=== PATIENT | male | born 1955 | race Caucasian/White ===

== ENCOUNTER 2019-06-26 07:29 | Day surgery (SDC) | payer OTHER ==
--- NOTE | 2019-06-25 13:47 | EKG ---
Test Date: 2019-06-25 Test Time: 11:16:33 [employer] Intelligence [employer]: ARTI MEASUREMENT RESULTS: Intervals: Rate: 57 W[place]: 162 QRSD: 86 QT: 418 QTc: 406 [place]: P: 63 W[place]: 162 QRS: 11 T: 48 INTERPRETIVE STATEMENTS: Sinus bradycardia Otherwise normal ECG No previous ECG available for comparison Electronically Signed On 06-25-19 13:47:07 CDT by Morris Benavidez
--- OUTSIDE RECORDS SUMMARY | 2019-06-26 07:33 | XMS REPORT | Clinical Summary ---
:1955 Author Organization [facility] Address [address] [place] [address] Care Team Providers Name Role Phone Don Hercules Primary Care Provider Allergies Active Allergy Reactions Severity Noted Date Comments Salicylates 07/17/2016 On coumadin and cant take together Nsaids (Non-Steroidal Other (See Comments) 07/17/2016 On coumadin Anti-Inflammatory Drug) Medications Medication Sig Dispensed Refills Start Date End Date Status clonazePAM Take 0.5 mg by 0 Active (KLONOPIN) 0.5 MG mouth as needed for tablet Anxiety . rosuvastatin Take 10 mg by mouth 0 Active (CRESTOR) 10 MG daily. tablet dutasteride-tamsu Take 1 tablet by 0 Active losin 0.5-0.4 mg mouth nightly . CM24 insulin aspart Inject 0 Active (NOVOLOG) 100 subcutaneously avg unit/mL InPn 0.75ml per hour. venlafaxine Take 150 mg by 0 Active (EFFEXOR-XR) 150 mouth daily. MG 24 hr capsule insulin pump by Miscellaneous 0 Active reservoir Misc route Novolog 28 units per day . RIVAROXABAN Take 20 mg by mouth 0 Active (XARELTO ORAL) daily . multivitamin per Take 1 tablet by 0 Active tablet mouth daily. metFORMIN Take 500 mg by 0 Active (GLUCOPHAGE) 500 mouth daily with MG tablet breakfast. lisinopril Take 1 tablet (5 mg 30 tablet 1 06/18/2018 09/02/20 Discontinued (PRINIVIL,ZESTRIL total) by mouth 18 ) 5 MG tablet daily. Active Problems Problem Noted Date Lymphadenopathy, axillary 10/29/2018 Dyspnea on exertion 06/18/2018 Trigger finger 03/19/2017 Dupuytren's disease of palm of right hand 03/19/2017 Lumbar spondylosis 08/02/2016 Osteoarthritis of spine with radiculopathy, lumbar region 08/02/2016 Encounters Date Type Specialty Care Team Description 02/24/2019 Hospital Encounter Computed Florentino Greenberg Lymphadenopathy Tomography MD Matteo [address] Room 02/24/2019 Travel 02/24/2019 Outside Orders Central Scheduling Florentino Greenberg Lymphadenopathy MD Matteo (Primary Dx) 01/21/2019 Hospital Encounter Teegavarapdelfina, Generalized enlarged Allison lymph nodes MD Andrea 01/20/2019 Outside Orders Central Scheduling Surjit, Generalized enlarged Allison lymph nodes (Primary MD Andrea Dx) 11/25/2018 Hospital Encounter Chris, Dipaben Lymphadenopathy, MD Thiago axillary 11/24/2018 Travel 10/29/2018 Orders Only Critical Care Chris, Dipaben Lymphadenopathy, Medicine MD Thiago axillary 10/20/2018 Hospital Encounter Computed Chris, Dipaben Tomography MD Thiago 10/20/2018 Orders Only Computed Tamia Vallejo Thoracic outlet syndrome; Tomography Lung nodule 10/08/2018 Outside Orders Central Scheduling Chris, Dipaben Thoracic outlet syndrome (Primary Dx); MD Thiago Lung nodule 09/24/2018 Hospital Encounter Radiology Denis Vega 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 Outside Orders Central Scheduling Denis Vega Thoracic outlet MD Stefano syndrome (Primary Dx) 09/02/2018 Anesthesia Event Nikky Mccall NP 09/02/2018 Surgery Jose Antonio Gomez RELEASE,TRIGGER FINGER Mihir III 09/02/2018 Hospital Encounter Jose Antonio Gomez Dupuytren's disease of palm ( Primary Dx); Mihir III Trigger finger of right hand, unspecified finger 09/01/2018 Anesthesia Event Pre-Admission Domi Mccall, DIRK 09/01/2018 Hospital Encounter Pre-Admission Jose Antonio Gomez Testing Mihir III 07/21/2018 Outside Orders Bo, Diego S, Breathing-related ACADEMIC SUPPORT COORDINATOR, MECHANIC SENIOR sleep disorder (Primary Dx) 07/04/2018 Hospital Encounter Radiology Sb Hester Dupuytren's disease of MD Don quakake 07/01/2018 Hospital Encounter Radiology Sb Hester Dyspnea, unspecified MD Don type after 06/25/2018 Social History Tobacco Use Types Packs/Day Years Used Date Former Smoker Quit: 11/04/1972 Smokeless Tobacco: Never Used Tobacco Cessation: Counseling Given: No Comments: quit 1972 Alcohol Use Drinks/Week oz/Week Comments No Sex Assigned at Date Recorded Not on file Job Start Date Occupation Industry Not on file Not on file Not on file Travel History Travel Start Travel End No recent travel history available. Last Filed Vital Signs Vital Sign Reading Time Taken Blood Pressure 129/70 01/21/2019 10:09 AM CDT Pulse 60 01/21/2019 10:09 AM CDT Temperature 36.8 C (98.2 F) 01/21/2019 9:16 AM CDT Respiratory Rate 18 01/21/2019 10:09 AM CDT Oxygen Saturation 98% 01/21/2019 10:09 AM CDT Inhaled Oxygen Concentration - - Weight 72.6 kg (160 lb) 01/21/2019 9:16 AM CDT Height 167.6 cm (5' 6") 01/21/2019 9:16 AM CDT Body Mass Index 25.82 01/21/2019 9:16 AM CDT Plan of Treatment Not on file Implants Implanted Type Area Bobtail Driver Device Shelf Model / Identifier Expiration Serial / Lot Date Device Clsr Angio-Seal Vip 6fr [id number] - [id number] Cardiovascular N/A: ST YOSSI [id number] 09/03/2018 [id number] / Implanted: Qty: 1 on 06/18/2018 by Tamia Montes MD Groin MED:CARDIAC / SURG [id number] Matrix Floseal Hemo W/O Ndl 10 [id number] - [id number] Cement/Filler/A N/A: LEON:BIOSCI 11/03/2017 [id number] / Implanted: Qty: 1 on 08/02/2016 by Darius Singh MD dhesive Spine / Lumbar [id number] 7.5 X 40 Mm Voyager Mas N/A: [employer] [id number] / Implanted: Qty: 4 on 08/02/2016 by Darius Singh MD Spine / Lumbar [id number] Sofamor Danek Orthoblend Small N/A: [employer] 04/10/2018 [id number] / Implanted: Qty: 1 on 08/02/2016 by Darius Singh MD Spine [id number] / Lumbar Sofamor Danek Paste N/A: [employer] 04/04/2018 [id number] / Implanted: Qty: 1 on 08/02/2016 by Darius Singh MD Spine [id number] / Lumbar Expandable Interbody Device N/A: [employer] 04/13/2024 [id number] / Implanted: Qty: 1 on 08/02/2016 by Darius Singh MD Spine / Lumbar [id number] Kaiden N/A: [employer] [id number] / Implanted: Qty: 1 on 08/02/2016 by Darius Singh MD Spine / Lumbar [id number] Kaiden N/A: [employer] [id number] / Implanted: Qty: 1 on 08/02/2016 by Darius Singh MD Spine / Lumbar [id number] Set Screws N/A: [employer] [id number] / Implanted: Qty: 4 on 08/02/2016 by Darius Singh MD Spine / Lumbar [id number] Procedures Procedure Name Priority Date/Time Associated Diagnosis Comments CT CHEST WITH IV Routine 02/24/2019 4:12 Lymphadenopathy Results for this CONTRAST PM CDT procedure are in the results section. POCT-CREATININE Routine 02/24/2019 3:41 Results for this PM CDT procedure are in the results section. TISSUE EXAM AP Routine 01/21/2019 12:40 Results for this PM CDT procedure are in the results section. FLOW CYTOMETRY Routine 01/21/2019 9:55 Results for this AM CDT procedure are in the results section. FLOW CYTOMETRY Routine 01/21/2019 9:55 Results for this REQUISITION AM CDT procedure are in the results section. US GUIDED BREAST Routine 01/21/2019 9:50 Generalized enlarged Results for this BIOPSY - LEFT AM CDT lymph nodes procedure are in the results section. US FINE NEEDLE Routine 11/25/2018 2:35 Lymphadenopathy, Results for this ASPIRATION LEFT PM BOOM SUPERVISOR axillary procedure are in BREAST the results section. FLOW CYTOMETRY Routine 11/25/2018 2:32 Results for this PM BOOM SUPERVISOR procedure are in the results section. CYTOLOGY AP Routine 11/25/2018 2:32 Results for this PM BOOM SUPERVISOR procedure are in the results section. FLOW CYTOMETRY Routine 11/25/2018 2:32 Results for this REQUISITION PM BOOM SUPERVISOR procedure are in the results section. CT CHEST WITHOUT IV Routine 10/20/2018 12:19 Thoracic outlet Results for this CONTRAST PM BOOM SUPERVISOR syndrome procedure are in Lung nodule the results section. IR CV ACCESS FLUORO Routine 09/24/2018 12:55 Thoracic outlet Results for this PM BOOM SUPERVISOR syndrome procedure are in the results section. POCT-GLUCOSE METER Routine 09/02/2018 11:06 Results for this AM CDT procedure are in the results section. TISSUE EXAM AP Routine 09/02/2018 9:55 Results for this AM CDT procedure are in the results section. POCT-GLUCOSE METER Routine 09/02/2018 8:27 Results for this AM CDT procedure are in the results section. INJECTION,MUSCLE 09/02/2018 8:25 Trigger finger, right TRIGGER POINTS AM CDT index finger Trigger finger, right middle finger Trigger finger, left middle finger Case Notes 60 MINS PER FAXLevi mayuri Special Needs (GENERAL WITH LMA, POSSIBLE URINARY CATHETER) FASCIECTOMY,HAND W/ Z-PLASTY 09/02/2018 8:25 AM CDT Trigger finger, right index AND GRAFT finger Trigger finger, right middle finger Trigger finger, left middle finger Case Notes 60 MINS PER FAXLevi mayuri Special Needs (GENERAL WITH LMA, POSSIBLE URINARY CATHETER) RELEASE,TRIGGER FINGER 09/02/2018 8:25 AM CDT Trigger finger, right index finger Trigger finger, right middle finger Trigger finger, left middle finger Case Notes 60 MINS PER FAXLevi mayuri Special Needs (GENERAL WITH LMA, POSSIBLE URINARY CATHETER) PLATELET COUNT Routine 09/01/2018 10:30 Results for this AM CDT procedure are in the results section. PT/APTT Routine 09/01/2018 10:30 Results for this AM CDT procedure are in the results section. GLUCOSE Routine 09/01/2018 10:30 Results for this AM CDT procedure are in the results section. BUN AND CREATININE Routine 09/01/2018 10:30 Results for this AM CDT procedure are in the results section. ELECTROLYTE PANEL Routine 09/01/2018 10:30 Results for this AM CDT procedure are in the results section. HEMOGLOBIN Routine 09/01/2018 10:30 Results for this AM CDT procedure are in the results section. HEPARIN ASSAY - Routine 09/01/2018 10:30 Results for this UNFRACTIONATED AM CDT procedure are in the results section. NM CARDIAC PET Routine 07/04/2018 12:57 Dyspnea, Results for this PERFUSION REST AND/OR PM CDT unspecified type procedure are in STRESS the results section. TREADMILL Routine 07/04/2018 11:28 Results for this TOLERANCE(NON-NUCLEAR AM CDT procedure are in TREADMILL) the results section. ECG 12-LEAD Routine 07/04/2018 11:17 Results for this AM CDT procedure are in the results section. ECG 12-LEAD Routine 07/04/2018 11:17 AM CDT Procedure Note - Interface, External Ris In - 07/04/2018 11:40 AM CDT Ventricular Rate 53 BPM Atrial Rate 53 BPM P-R Interval 182 ms QRS Duration 86 ms Q-T Interval 446 ms QTC Calculation(Bazett) 418 ms P [place] 73 degrees R [place] 58 degrees T [place] 66 degrees Sinus bradycardia Otherwise normal ECG after 06/25/[address] Chest with IV Contrast (02/24/2019 4:12 PM CDT) Specimen Narrative Performed At Addend[facility] RIS REPORT STATUS:A RADIATION DOSE: Total DLP: 516.87 mGy*cm Estimated effective dose: (DLP x 0.014 x size factor) mSv CTDIvol has been reviewed. It is below the limits set by the Radiation Protocol Committee (RPC). Dose modulation, iterative reconstruction, and/or weight based adjustment of the mA/kV was utilized to reduce the radiation dose to as low as reasonably achievable. Signed: Damaso Del Rosario MD Report Verified Date/Time:02/25/2019 11:23:17 Addendum Ends FINAL REPORT EXAM: CT Chest WITH contrast INDICATION: Lymphadenopathy. Prior lung nodules. COMPARISON: October 20, 2018 TECHNIQUE: Chest was scanned utilizing a multidetector helical scanner from the lung apex through the level of the adrenal glands without administration of IV contrast. Coronal and sagittal reformations were obtained. Routine protocol was performed. IV CONTRAST: 100 mL of Isovue-300 COMPLICATIONS: None RADIATION DOSE: Total DLP: 516.87 mGy*cm Estimated effective dose: (DLP x 0.014 x size factor) mSv CTDIvol has been reviewed. It is below the limits set by the Radiation Protocol Committee (RPC). FINDINGS: Lines and Tubes: None. Lower Neck: No acute findings. Heart and Great Vessels: The aorta and main pulmonary artery measure 32 and 25 mm. respectively.Trace amount of pericardial fluid statistically physiologic. Mild vascular calcifications. Lymph Nodes: No suspicious mediastinal or hilar adenopathy. Left axillary and subpectoral lymph nodes are enlarged, with largest subpectoral lymph node 21 x 12 mm and largest left axillary lymph node 19 x 12 mm. These are essentially unchanged. Lungs:There is mild biapical scarring with no pneumothorax or pleural effusion. The trachea and central bronchi are unremarkable. There is an 8 x 5 mm pleural nodule right middle lobe image 60 unchanged. Several pleural nodules are present in the right lower lobe, largest 7 mm unchanged. Smaller 3 mm pleural nodules are also unchanged. Tiny 3 mm nodule anterior aspect left upper lobe is unchanged. 4 mm nodule left lower lobe is unchanged. 4 mm subpleural nodule left lower lobe is unchanged and 3 mm nodule left lower lobe is unchanged. 6 mm slightly lobular nodule left lower lobe is unchanged. Upper abdomen:No acute findings. Bones and Soft Tissues: No acute findings. IMPRESSION: Bilateral pleural and parenchymal pulmonary nodules measuring 3 to 7 mm. These are essentially unchanged Left axillary and subpectoral adenopathy. This is essentially unchanged Signed: Damaso Del Rosario MD Report Verified Date/Time:02/25/2019 10:51:51 Procedure Note Interface, External Ris In - 02/25/2019 11:25 AM CDT Addendum Begins REPORT STATUS:A RADIATION DOSE: Total DLP: 516.87 mGy*cm Estimated effective dose: (DLP x 0.014 x size factor) mSv CTDIvol has been reviewed. It is below the limits set by the Radiation Protocol Committee (RPC). Dose modulation, iterative reconstruction, and/or weight based adjustment of the mA/kV was utilized to reduce the radiation dose to as low as reasonably achievable. Signed: Damaso Del Rosario MD Report Verified Date/Time: 02/25/2019 11:23:17 Addendum Ends FINAL REPORT EXAM: CT Chest WITH contrast INDICATION: Lymphadenopathy. Prior lung nodules. COMPARISON: October 20, 2018 TECHNIQUE: Chest was scanned utilizing a multidetector helical scanner from the lung apex through the level of the adrenal glands without administration of IV contrast. Coronal and sagittal reformations were obtained. Routine protocol was performed. IV CONTRAST: 100 mL of Isovue-300 COMPLICATIONS: None RADIATION DOSE: Total DLP: 516.87 mGy*cm Estimated effective dose: (DLP x 0.014 x size factor) mSv CTDIvol has been reviewed. It is below the limits set by the Radiation Protocol Committee (RPC). FINDINGS: Lines and Tubes: None. Lower Neck: No acute findings. Heart and Great Vessels: The aorta and main pulmonary artery measure 32 and 25 mm. respectively. Trace amount of pericardial fluid statistically physiologic. Mild vascular calcifications. Lymph Nodes: No suspicious mediastinal or hilar adenopathy. Left axillary and subpectoral lymph nodes are enlarged, with largest subpectoral lymph node 21 x 12 mm and largest left axillary lymph node 19 x 12 mm. These are essentially unchanged. Lungs: There is mild biapical scarring with no pneumothorax or pleural effusion. The trachea and central bronchi are unremarkable. There is an 8 x 5 mm pleural nodule right middle lobe image 60 unchanged. Several pleural nodules are present in the right lower lobe, largest 7 mm unchanged. Smaller 3 mm pleural nodules are also unchanged. Tiny 3 mm nodule anterior aspect left upper lobe is unchanged. 4 mm nodule left lower lobe is unchanged. 4 mm subpleural nodule left lower lobe is unchanged and 3 mm nodule left lower lobe is unchanged. 6 mm slightly lobular nodule left lower lobe is unchanged. Upper abdomen: No acute findings. Bones and Soft Tissues: No acute findings. IMPRESSION: Bilateral pleural and parenchymal pulmonary nodules measuring 3 to 7 mm. These are essentially unchanged Left axillary and subpectoral adenopathy. This is essentially unchanged Signed: Damaso Del Rosario MD Report Verified Date/Time: 02/25/2019 10:51:51 Performing Organization Address City/State/Zipcode Phone Number GE RIS POC-Creatinine (02/24/2019 3:41 PM CDT) POC-Creatinine 1.0Comment: TESTED AT [facility] 0.6 - 1.3 mg/dL [place] [id number] [facility] [address] POC-EGFR 75 mL/min/1.73M2 [facility] Specimen Blood Performing Organization Address City/State/Zipcode Phone Number [facility] [address] [place] [address] CENTER Tissue Exam (01/21/2019 12:40 PM CDT)Only the most recent of2 resultswithin the time period is included. Case Report Surgical Pathology Report Case: [id number] [facility] Authorizing Provider:Sb Baron,Collected: 01/21/2019 1240 [facility]: [facility] Pathologist: Dominick De La O MD Specimen:Axilla, Left DIAGNOSIS LYMPH NODE, AXILLA, LEFT, CORE BIOPSY: [facility] -REACTIVE FOLLICULAR HYPERPLASIA [facility] -NO EVIDENCE OF LYMPHOMA -SEE COMMENT Signing Pathologist Direct Phone Line: [phone] COMMENT Histologic evaluation of the [facility] left axillary lymph node core [facility] biopsy primarily demonstrates benign features. No mass lesions or granuloma identified. Immunohistochemical stain evaluation and corresponding flow cytometric analysis([id number]) did NOT demonstrate evidence of a neoplastic B or T lymphocyte process on this sample. Overall findings are consistent with reactive follicular hyperplasia. Clinical correlation is recommended. CPT Code(s) 75991 [facility] [address]70 x1; 84459 x8 [facility] CLINICAL HISTORY Left axillary lymph node biopsy [facility] SPECIMEN SOURCE Left axillary lymph node biopsy [facility] GROSS DESCRIPTION The specimen is received in a formalin-filled container and labeled with the patient's information and labeled "left axillary lymph node biopsy" and consists of four hemorrhagic fatty core biopsies ranging from 0.4 to 1 cm. [facility] Ink code: black. The specimen is entirely submitted A2. CG/pl MICROSCOPIC DESCRIPTION Histologic sections of a left axillary lymph node core biopsy demonstrates three core biopsy fragments of varying size comprised by lymphoid tissue. The lymphoid tissue demonstrates a follicular pattern [facility] with reactive germinal centers. The germinal centers demonstrates lymphocytes of varying size and tingible body macrophages. No evidence of granuloma or necrosis is seen.The interfollicular lymphoid ti [facility] ssue appears minimally expanded and primarily comprised by small lymphocytes and small number of large cells (immunoblasts) admixed. Histiocytes noted in some sinuses. Immunohistochemical stains, with adequate controls, are performed on block A1 for CD3, PAX-5, BCL-2. BCL-6, CD10, CD30, CD23, [place], Lambda . Germinal centers are positive for PAX-5, BCL-6 and CD10. CD23 highlights follicular dendritic cells meshworks of follicles. The interfollicular areas are T cell predominant and highlighted by CD3 and BCL2. CD30 demonstrates rare immunoblasts. [place] and Lambda demonstrate few polyclonal plasma cells present. Overall findings are consistent with reactive follicular hyperplasia. SPECIAL STUDIES The interpretation of this case included the use of immunohistochemistry or special stains. [facility] Immunohistochemistry technical testing was performed at [facility], Pathology Laboratory where it was developed and its performance characteristics were determined. It has not be en cleared or approved by the U.S. Food and Drug Administration. The FDA has determined that such clearance or approval is not necessary. The test is used for clinical purposes. It should not be regarde d as investigational or for research. This laboratory is certified under the Clinical Laboratory Improvement Amendments of 1988 (CLIA-88) as qualified to perform high complexity clinical laboratory testing. The immunohistochemistry test was developed and its performance characteristics determined by [facility], Pathology Laboratory. It has not been cleared or approved by the U.S. Food and Drug Administration. The FDA has determined that such clearance or approval is not necessary. The test is used for clinical purposes. It should not be regarded as investigational or for research. This laboratory is certified under the Clinical Laboratory Improvement Amendments of 1988 (CLIA-88) as qualified to perform high complexity clinical laboratory testing. The following immunohistochemical stains were evaluated: CD3, PAX-5, BCL-2. BCL-6, CD10, CD30, CD23, [place], Lambda Specimen Tissue - Axilla, Left Performing Organization Address City/State/Zipcode Phone Number [facility] [address] [place] [address] CENTER Flow Cytometry Requisition (01/21/2019 9:55 AM CDT)Only the most recent of2 resultswithin the time period is included. Flow Cytometry See Separate Report [facility] Case # [id number] [facility] Specimen Tissue - Axilla, Left Performing Organization Address City/State/Zipcode Phone Number [facility] [address] [place] [address] [phone] CENTER Flow Cytometry (01/21/2019 9:55 AM CDT)Only the most recent of2 resultswithin the time period is included. Case Report Flow Cytometry Report Case: [id number] [facility] Authorizing Provider:Sb Baron,Collected: 01/21/2019 0955 [facility]9 Pathologist: Dominick De La O MD Specimen:Other Flow Interpretation LYMPH NODE, AXILLARY, LEFT, US GUIDED BIOPSY, FLOW CYTOMETRY: [facility] -NO ABERRANT T LYMPHOCYTE POPULATION [facility] -NO MONOTYPIC B LYMPHOCYTE POPULATION -SEE COMMENT Flow Interpretation Comment Flow cytometric analysis of [facility] a left axillary lymph node [facility] biopsy does NOT demonstrate evidence of a neoplastic B or T lymphocyte process. However, flow cytometry for evaluation of Hodgkin lymphoma or other B cell lymphoma with only rare large neoplastic cells is limited. Recommend morphologic correlation with biopsy([id number]). CPT Code(s) 76713 [facility] CLINICAL HISTORY 63 y.o. male presents for an ultrasound guided core biopsy of a left axillary lymph node [facility] SPECIMEN SOURCE LYMPH NODE, AXILLARY, LEFT, [facility] US GUIDED BIOPSY [facility] CELLULAR BIOMARKER ANALYSIS CD8, surface-kappa, CD56, [facility] surface-lambda, CD5, CD19, [facility] CD10, CD3, CD20, CD4, CD45 IMMUNOPHENOTYPIC FINDINGS Specimen Viability: 88.7% Number of Events Acquired: [id number] [facility] The following populations are identified: Lymphocytes: Bright CD45+ lymphocytes comprise 98.0% of total cells. T cells show a CD4:CD8 ratio of 5.9 and normal expression of the harris T cell antigens CD3 and CD5. B cells are polytypic with a kappa:lambda ratio of 1.5. Myeloid/monocytic populations: As identified by CD45 and light scatter characteristics, granulocytes comprise 1.2% cells analyzed, and monocytes comprise 0.4% of total cells. The remaining events analyzed represent nonviable cells, non-hematolymphoid cells, and debris. DISCLAIMER These tests were developed and their performance characteristics determined by [facility] They have not been cleared or approved by the U.S. Food and Drug Administration. The FDA has determined that such clearance or approval is not necessary. It should not be regarded as investigational or [facility] for research. This laboratory is certified under the Clinical Laboratory Improvement Amendments of 1988 ("CLIA") as qualified to perform high-complexity clinical testing. Specimen Other Performing Organization Address City/State/Zipcode Phone Number [facility] [address] [place] [address] CENTER US guided breast biopsy left (01/21/2019 9:50 AM CDT) Specimen Narrative Performed At Addendum Begins [facility] AMENDMENT: 01/26/2019 Sb Baron M.D. Pathology results are now available and are copied below: LYMPH NODE, AXILLA, LEFT, CORE BIOPSY: -REACTIVE FOLLICULAR HYPERPLASIA -NO EVIDENCE OF LYMPHOMA -SEE COMMENT COMMENT Histologic evaluation of the left axillary lymph node core biopsy primarily demonstrates benign features.No mass lesions or granuloma identified.Immunohistochemical stain evaluation and corresponding flow cytometric analysis([id number]) did NOT demonstrate evidence of a neoplastic B or T lymphocyte process on this sample.Overall findings are consistent with reactive follicular hyperplasia. Clinical correlation is recommended. Addendum Ends #[id number] - MM, U/S, BIOPSY, BREAST, LEFT ULTRASOUND GUIDED BIOPSY LEFT BREAST: 01/21/2019 CLINICAL: Ultrasound guided core biopsy of a left axillary lymph node. PATIENT CONSENT: The procedure, risks and benefits, alternatives were discussed with the patient. Informed consent was obtained. A time-out was performed. An ultrasound guided biopsy using real-time ultrasound was performed for the lymph node located in the left axilla.The skin was prepped in the usual manner.A 14 gauge no throw biopsy needle was placed adjacent to the abnormality under ultrasound guidance.Once the needle was documented to be in the correct location, a total of five passes were made using a 14 gauge no throw biopsy needle. Hemostasis was achieved with manual compression.Skin closure strips and a sterile dressing were applied to the access site.The specimens were sent to the laboratory for pathological analysis. There were no immediate complications. IMPRESSION: ULTRASOUND GUIDED BIOPSY Ultrasound guided biopsy of the lymph node in the left axilla was successful with no apparent post procedure complications.Pathology is pending. Sb Baron M.D. ds/:01/21/2019 11:49:18 Interface Engineer: Opal Duff Director Informatics, [facility] [id number] Procedure Note Interface, External Ris In - 01/27/2019 11:13 AM CDT Addendum Begins AMENDMENT: 01/26/2019 Sb Baron M.D. Pathology results are now available and are copied below: LYMPH NODE, AXILLA, LEFT, CORE BIOPSY: -REACTIVE FOLLICULAR HYPERPLASIA -NO EVIDENCE OF LYMPHOMA -SEE COMMENT COMMENT Histologic evaluation of the left axillary lymph node core biopsy primarily demonstrates benign features. No mass lesions or granuloma identified. Immunohistochemical stain evaluation and corresponding flow cytometric analysis([id number]) did NOT demonstrate evidence of a neoplastic B or T lymphocyte process on this sample. Overall findings are consistent with reactive follicular hyperplasia. Clinical correlation is recommended. Addendum Ends #[id number] - MM, U/S, BIOPSY, BREAST, LEFT ULTRASOUND GUIDED BIOPSY LEFT BREAST: 01/21/2019 CLINICAL: Ultrasound guided core biopsy of a left axillary lymph node. PATIENT CONSENT: The procedure, risks and benefits, alternatives were discussed with the patient. Informed consent was obtained. A time-out was performed. An ultrasound guided biopsy using real-time ultrasound was performed for the lymph node located in the left axilla. The skin was prepped in the usual manner. A 14 gauge no throw biopsy needle was placed adjacent to the abnormality under ultrasound guidance. Once the needle was documented to be in the correct location, a total of five passes were made using a 14 gauge no throw biopsy needle. Hemostasis was achieved with manual compression. Skin closure strips and a sterile dressing were applied to the access site. The specimens were sent to the laboratory for pathological analysis. There were no immediate complications. IMPRESSION: ULTRASOUND GUIDED BIOPSY Ultrasound guided biopsy of the lymph node in the left axilla was successful with no apparent post procedure complications. Pathology is pending. Sb Baron M.D. ds/:01/21/2019 11:49:18 Interface Engineer: Opal Duff Director Informatics, [facility] [id number] Performing Organization Address City/State/Zipcode Phone Number [facility] US fine needle aspiration breast left (11/25/2018 2:35 PM BOOM SUPERVISOR) Specimen Narrative Performed At Addendum Begins [facility] AMENDMENT: 12/01/2018 Terry Abarca M.D. Cytology results are now available and demonstrate no evidence of malignant epithelial cellls. Addendum Ends #[id number] - MM, U/S, FNA, BREAST, LEFT ULTRASOUND GUIDED FINE NEEDLE ASPIRATION LEFT BREAST: 11/25/2018 PATIENT CONSENT: The procedure, risks, benefits and alternatives were discussed with the patient. Informed consent was obtained. A time-out was performed. A fine needle aspiration was performed for the lymph node located in the left axilla.The skin was prepped in the usual manner.Local anesthetic was administered to the access site.A 18 gauge needle was percutaneously placed into the abnormality under ultrasound guidance.Once the needle was documented to be in the correct location, six passes were made.The specimens were sent to the laboratory for cytological analysis. IMPRESSION: FINE NEEDLE ASPIRATION Fine needle aspiration of the lymph node in the left axilla was successful with no apparent post procedure complications. Terry Abarca M.D. pth/:11/26/2018 08:44:00 Interface Engineer: Opal Duff Director Informatics, [facility] [id number] Procedure Note Interface, External Ris In - 12/01/2018 3:12 PM BOOM SUPERVISOR Addendum Begins AMENDMENT: 12/01/2018 Terry Abarca M.D. Cytology results are now available and demonstrate no evidence of malignant epithelial cellls. Addendum Ends #[id number] - MM, U/S, FNA, BREAST, LEFT ULTRASOUND GUIDED FINE NEEDLE ASPIRATION LEFT BREAST: 11/25/2018 PATIENT CONSENT: The procedure, risks, benefits and alternatives were discussed with the patient. Informed consent was obtained. A time-out was performed. A fine needle aspiration was performed for the lymph node located in the left axilla. The skin was prepped in the usual manner. Local anesthetic was administered to the access site. A 18 gauge needle was percutaneously placed into the abnormality under ultrasound guidance. Once the needle was documented to be in the correct location, six passes were made. The specimens were sent to the laboratory for cytological analysis. IMPRESSION: FINE NEEDLE ASPIRATION Fine needle aspiration of the lymph node in the left axilla was successful with no apparent post procedure complications. Terry Abarca M.D. pth/:11/26/2018 08:44:00 Interface Engineer: Opal Duff Director Informatics, [facility] [id number] Performing Organization Address City/State/Zipcode Phone Number [facility] Cytology (11/25/2018 2:32 PM BOOM SUPERVISOR) Case Report Medical Cytology Report Case: [id number] [facility] Authorizing Provider:Terry Abarca MDCollected: 11/25/2018 1432 [facility] CenterReceived: 11/25/2018 1557 Pathologist: Jimbo Dow MD Specimen:Axilla, Left DIAGNOSIS LEFT AXILLARY LYMPH NODE FNA BY CLINICIAN (CYTOSPINS): [facility] - NEGATIVE FOR EPITHELIAL MALIGNANCY [facility] - FAVOR REACTIVE LYMPHOID PROCESS (SEE COMMENT) Signing Pathologist Direct Phone Line: [phone] COMMENT INTRADEPARTMENTAL CONSULTATION: - Dominick De La O MD has seen the case and agrees with the diagnosis. [facility] Please also see flow cytometry report [id number]. If there is a strong suspicion of a hematologic malignancy, appropriate evaluation is recommended. CPT Code(s) 11144 [facility] CLINICAL DATA Evaluation of left axillary adenopathy [facility] SPECIMEN SOURCE LEFT AXILLARY LYMPH NODE FNA [facility] GROSS DESCRIPTION 5 mls in cytorich red; 4 cytospins [facility] Collected: [id number] [facility] Received: [id number] Gross assessment was [facility] performed at [address], Department [facility], [address] [place] [id number], Technical component was [facility] performed at [address], Department of [facility] Pathology, [address] [place] [address], Professional component [facility] was performed at [address], Department of [facility] Pathology, [address] [place] [id number], Specimen Fine Needle Aspirate - Axilla, Left Narrative Performed At Performing Organization Address City/State/Zipcode Phone Number [phone] [place] Chest without IV Contrast (10/20/2018 12:19 PM BOOM SUPERVISOR) Specimen Narrative Performed At Addendum Begins GE RIS REPORT STATUS:A Addendum: Comparison study in the basilar system dated 07/22/2018. Nodules unchanged; however, given only three month interval, continued follow-up recommended. CT in nine months, July 2019, recommended. Signed: Jelena Dixon MD Report Verified Date/Time:10/22/2018 08:46:44 Reading Location: [facility] Reading Room 1 - B0.627 Addendum Ends FINAL REPORT EXAM: CT Chest WITHOUT contrast INDICATION: Thoracic outlet syndrome, lung nodule COMPARISON: None. TECHNIQUE:The Chest was scanned utilizing a multidetector helical scanner without the use of IV contrast. Coronal and sagittal reformations were obtained. Reformatted axial MIP images were obtained and reviewed. IV CONTRAST: None COMPLICATIONS: None RADIATION DOSE: Total DLP: 160 mGy*cm Estimated effective dose: (DLP x 0.015 x size factor) mSv CTDIvol has been reviewed. It is below the limits set by the Radiation Protocol Committee (RPC). Appropriate CT dose reduction techniques were utilized. FINDINGS: Lines and Tubes: None. Lower Neck: No acute findings. Heart and Great Vessels: The aorta and main pulmonary artery measure 32 and 25 mm. respectively.Trace amount of pericardial fluid statistically physiologic. Mild vascular calcifications. Lymph Nodes: Within limitations of nonenhanced exam, no suspicious mediastinal or hilar adenopathy. Left axillary and subpectoral lymph nodes are enlarged, with largest subpectoral lymph node 21 x 12 mm and largest left axillary lymph node 19 x 12 mm. Lungs:There is mild biapical scarring with no pneumothorax or pleural effusion. The trachea and central bronchi are unremarkable. There is an 8 x 5 mm pleural nodule right image 59. Several pleural nodules are present in the right lower lobe, largest 7 mm image 95. Smaller 3 mm image 88 and 95. Tiny 3 mm nodule anterior aspect left upper lobe image 42. 4 mm nodule left lower lobe image 66. 4 mm subpleural nodule left lower lobe image 81 and 3 mm nodule left lower lobe image 82. 6 mm slightly lobular nodule left lower lobe image 83. Upper abdomen:Limited. No acute findings. Bones and Soft Tissues: No acute findings. IMPRESSION: 1.Bilateral pleural and parenchymal pulmonary nodules measuring 3 to 7 mm. No comparisons are available. Six month CT follow-up. 2.Left axillary and subpectoral adenopathy. Clinical/laboratory correlation recommended. Signed: Jelena Dixon MD Report Verified Date/Time:10/20/2018 15:52:58 Reading Location: [facility] Reading Room [address] [place] [address] Procedure Note Interface, External Ris In - 10/22/2018 8:48 AM BOOM SUPERVISOR Addendum Begins REPORT STATUS:A Addendum: Comparison study in the basilar system dated 07/22/2018. Nodules unchanged; however, given only three month interval, continued follow-up recommended. CT in nine months, July 2019, recommended. Signed: Jelena Dixon MD Report Verified Date/Time: 10/22/2018 08:46:44 Reading Location: [facility] Reading Room [address] [place] [address] Addendum Ends FINAL REPORT EXAM: CT Chest WITHOUT contrast INDICATION: Thoracic outlet syndrome, lung nodule COMPARISON: None. TECHNIQUE: The Chest was scanned utilizing a multidetector helical scanner without the use of IV contrast. Coronal and sagittal reformations were obtained. Reformatted axial MIP images were obtained and reviewed. IV CONTRAST: None COMPLICATIONS: None RADIATION DOSE: Total DLP: 160 mGy*cm Estimated effective dose: (DLP x 0.015 x size factor) mSv CTDIvol has been reviewed. It is below the limits set by the Radiation Protocol Committee (RPC). Appropriate CT dose reduction techniques were utilized. FINDINGS: Lines and Tubes: None. Lower Neck: No acute findings. Heart and Great Vessels: The aorta and main pulmonary artery measure 32 and 25 mm. respectively. Trace amount of pericardial fluid statistically physiologic. Mild vascular calcifications. Lymph Nodes: Within limitations of nonenhanced exam, no suspicious mediastinal or hilar adenopathy. Left axillary and subpectoral lymph nodes are enlarged, with largest subpectoral lymph node 21 x 12 mm and largest left axillary lymph node 19 x 12 mm. Lungs: There is mild biapical scarring with no pneumothorax or pleural effusion. The trachea and central bronchi are unremarkable. There is an 8 x 5 mm pleural nodule right image 59. Several pleural nodules are present in the right lower lobe, largest 7 mm image 95. Smaller 3 mm image 88 and 95. Tiny 3 mm nodule anterior aspect left upper lobe image 42. 4 mm nodule left lower lobe image 66. 4 mm subpleural nodule left lower lobe image 81 and 3 mm nodule left lower lobe image 82. 6 mm slightly lobular nodule left lower lobe image 83. Upper abdomen: Limited. No acute findings. Bones and Soft Tissues: No acute findings. IMPRESSION: 1.Bilateral pleural and parenchymal pulmonary nodules measuring 3 to 7 mm. No comparisons are available. Six month CT follow-up. 2.Left axillary and subpectoral adenopathy. Clinical/laboratory correlation recommended. Signed: Jelena Dixon MD Report Verified Date/Time: 10/20/2018 15:52:58 Reading Location: [facility] Reading Room [address] [place] [address] Performing Organization Address City/State/Zipcode Phone Number [facility] IR CV Access Fluoro (09/24/2018 12:55 PM BOOM SUPERVISOR) Specimen Narrative Performed At FINAL REPORT [facility] Ultrasound-guided left anterior scalene muscle block. History:Left neurogenic thoracic syndrome Modality: Ultrasound Sedation: None Departmental Shipping Clerk:Taqueria Ray MD. Account Retention Representative:None. Approach: Midbody of the left anterior scalene muscle. Estimated blood loss:< 5 cc. Specimen: None. Technique: Informed written consent was obtained. Discussion of risks, benefits, and alternatives were made with the patient. The patient expressed understanding and agreed to proceed.A universal timeout was performed prior to starting the procedure.All elements maximal sterile barrier technique was utilized for this procedure, including utilization of sterile scrub solution for skin prep, a large sterile sheet to cover the areas of the patient that were not prepped, and hand hygiene, mask, head covering, and sterile gown for performing radiologist and scrub technologist. Under direct ultrasound guidance a 25-gauge needle was advanced into the mid body of the left anterior scalene muscle. An ultrasound image documenting the needle tip location within the muscle body was saved into PACS. Next 4 mL of lidocaine 1% and 1 mL of Kenalog-40 was injected into the muscle. The needle was then removed and the skin puncture site was dressed with a sterile gauze and occlusive Tegaderm dressing. The patient tolerated the procedure well without evidence of immediate competition. Impression: Technically successful and uncomplicated ultrasound guided intramuscular left anterior scalene block. Signed: Taqueria Ray MD Report Verified Date/Time:09/29/2018 14:38:16 Reading Location: [facility] [id number] Angio Body Reading Room Procedure Note Interface, External Ris In - 09/29/2018 2:40 PM BOOM SUPERVISOR FINAL REPORT Ultrasound-guided left anterior scalene muscle block. History: Left neurogenic thoracic syndrome Modality: Ultrasound Sedation: None Departmental Shipping Clerk: Taqueria Ray MD. Account Retention Representative: None. Approach: Midbody of the left anterior scalene muscle. Estimated blood loss: < 5 cc. Specimen: None. Technique: Informed written consent was obtained. Discussion of risks, benefits, and alternatives were made with the patient. The patient expressed understanding and agreed to proceed. A universal timeout was performed prior to starting the procedure. All elements maximal sterile barrier technique was utilized for this procedure, including utilization of sterile scrub solution for skin prep, a large sterile sheet to cover the areas of the patient that were not prepped, and hand hygiene, mask, head covering, and sterile gown for performing radiologist and scrub technologist. Under direct ultrasound guidance a 25-gauge needle was advanced into the mid body of the left anterior scalene muscle. An ultrasound image documenting the needle tip location within the muscle body was saved into PACS. Next 4 mL of lidocaine 1% and 1 mL of Kenalog-40 was injected into the muscle. The needle was then removed and the skin puncture site was dressed with a sterile gauze and occlusive Tegaderm dressing. The patient tolerated the procedure well without evidence of immediate competition. Impression: Technically successful and uncomplicated ultrasound guided intramuscular left anterior scalene block. Signed: Taqueria Ray MD Report Verified Date/Time: 09/29/2018 14:38:16 Reading Location: [place] [address] Angio Body Reading Room Performing Organization Address City/[facility]/Zipcode Phone Number [facility] POC-Glucose meter (09/02/2018 11:06 AM CDT)Only the most recent of2 resultswithin the time period is included. POC-Glucose Meter 176 (H)Comment: TESTED AT 70 - 110 mg/dL [place] [id number] [facility] [id number] Specimen Blood Performing Organization Address [facility]/Zipcode Phone Number [address] [address] [phone] CENTER PT/aPTT (09/01/2018 10:30 AM CDT) Protime 13.3 11.7 - 14.7 seconds [facility] INR 1.0 <=5.9 [facility] PTT 29.5 22.5 - 36.0 seconds [facility] Specimen Blood Narrative Performed At RECOMMENDED COUMADIN/WARFARIN INR THERAPY [facility] RANGES STANDARD DOSE: 2.0 - 3.0 Includes: PROPHYLAXIS for venous thrombosis, systemic embolization; TREATMENT for venous thrombosis and/or pulmonary embolus. HIGH RISK: Target INR is 2.5-3.5 for patients with mechanical heart valves. Performing Organization Address City/[facility] Phone Number [address] [address] CENTER Heparin Assay - Unfractionated (09/01/2018 10:30 AM CDT) Anti 10A-Unfractionated <0.10 (L) 0.30 - 0.70 u/ml [facility] Heparin [facility] Specimen Blood Narrative Performed At Recommendations for Monitoring Unfractionated [facility] Heparin Therapeutic Range: 0.3-0.7 u/mL with continuous IV infusion Performing Organization Address [facility] Phone Number [address] [address] CENTER BUN and Creatinine (09/01/2018 10:30 AM CDT) BUN 30 (H) 7 - 21 mg/dL [facility] Creatinine 1.00 0.57 - 1.25 mg/dL [facility] EGFR 75Comment: ESTIMATED GFR IS mL/min/1.73 sq m [facility] NOT ACCURATE CREATININE [facility] CLEARANCE IN PREDICTING GLOMERULAR FILTRATION RATE. ESTIMATED GFR IS NOT APPLICABLE FOR DIALYSIS PATIENTS. Specimen Blood Performing Organization Address [facility] Phone Number [address] [address] CENTER Platelet count (09/01/2018 10:30 AM CDT) Platelets 199 150 - 450 K/CU MM [facility] Specimen Blood Performing Organization Address City/[facility]/Zipcode Phone Number [address] [address] [phone] [place] Hemoglobin (09/01/2018 10:30 AM CDT) Hemoglobin 14.4 13.7 - 17.5 GM/DL [facility] Specimen Blood Performing Organization Address City/[facility]/Zipcode Phone Number [address] [address] [place] Glucose (09/01/2018 10:30 AM CDT) Glucose 120 (H) 70 - 105 mg/dL [facility] Specimen Blood Performing Organization Address [facility] Phone Number [address] [address] [place] Electrolytes (09/01/2018 10:30 AM CDT) Sodium 138 136 - 145 meq/L [facility] Potassium 4.0 3.5 - 5.1 meq/L [facility] Chloride 102 98 - 107 meq/L [facility] CO2 27 22 - 29 meq/L [facility] Specimen Blood Performing Organization Address City/[facility] Phone Number [address] [address] CENTER NM myocardial perfusion PET (rest and stress) (07/04/2018 12:57 PM CDT) Specimen Narrative Performed At FINAL REPORT [facility] PROCEDURE: Rest/Stress MYOCARDIAL PERFUSION PET with regadenoson\\XA9\\ CPT CODE: 26529 INDICATION: Dyspnea HISTORY: Cardiac risk factors: Stroke. Other cardiovascular history: No reported CAD. Recent cardiac symptoms: Dyspnea, chest pain. Current cardiovascular-related medications: Crestor, lisinopril. PROTOCOL: Limited low-dose CT imaging was performed for attenuation correction. 40.0 mCi of Rb-82 chloride was injected iv at rest, and gated PET (positron emission tomography) images were obtained. Subsequently, 40.1 mCi of Rb-82 chloride was injected iv at expected peak pharmacologic effect, and gated PET images were obtained. PRELIMINARY STRESS TEST DATA FROM NONINVASIVE CARDIOLOGY: Pharmacologic stress was by 10-second iv infusion of 0.4 mg of regadenoson. Radiotracer was injected 30 seconds after start of stress. Heart rate was 52 beats/min at rest and 68 beats/min (45% of MPHR) at tracer injection. BP was 96/52 mmHg at rest and 96/59 mmHg at tracer injection. Stress was stopped for predetermined endpoint. The patient experienced dyspnea; treatment was not required. Preliminary ECG evaluation revealed sinus bradycardia at rest and no ischemic changes with stress. (Final ECG interpretation and other stress and monitoring data are reported separately by Cardiology.) IMAGING FINDINGS: Study quality is good. Images obtained after rest and stress injections show normal LV activity. LV and RV volumes appear normal. Gated images obtained at rest and with stress show normal LV wall motion and thickening. LVEF at rest is 67%. LVEF at stress is greater than 70%. IMPRESSION: 1. Normal study.2. Appropriate pharmacologic stress.3. Normal myocardial perfusion.4. Normal resting LV function. No deterioration of function is noted with pharmacologic stress.5. Normal extracardiac tracer distribution.6. No previous [facility] study for comparison. NONINVASIVE RISK STRATIFICATION: The above findings are considered low risk (<1% annual mortality rate) based on the following criterion: - Normal or small myocardial perfusion defect at rest or with stress (JACC. 2012;59(9):857-81.) Signed: Maury Raymond MD Report Verified Date/Time:07/04/2018 15:00:54 Reading Location: [address] Reading Room Procedure Note Interface, External Ris In - 07/04/2018 3:03 PM CDT FINAL REPORT PROCEDURE: Rest/Stress MYOCARDIAL PERFUSION PET with regadenoson\\XA9\\ CPT CODE: 39320 INDICATION: Dyspnea HISTORY: Cardiac risk factors: Stroke. Other cardiovascular history: No reported CAD. Recent cardiac symptoms: Dyspnea, chest pain. Current cardiovascular-related medications: Crestor, lisinopril. PROTOCOL: Limited low-dose CT imaging was performed for attenuation correction. 40.0 mCi of Rb-82 chloride was injected iv at rest, and gated PET (positron emission tomography) images were obtained. Subsequently, 40.1 mCi of Rb-82 chloride was injected iv at expected peak pharmacologic effect, and gated PET images were obtained. PRELIMINARY STRESS TEST DATA FROM NONINVASIVE CARDIOLOGY: Pharmacologic stress was by 10-second iv infusion of 0.4 mg of regadenoson. Radiotracer was injected 30 seconds after start of stress. Heart rate was 52 beats/min at rest and 68 beats/min (45% of MPHR) at tracer injection. BP was 96/52 mmHg at rest and 96/59 mmHg at tracer injection. Stress was stopped for predetermined endpoint. The patient experienced dyspnea; treatment was not required. Preliminary ECG evaluation revealed sinus bradycardia at rest and no ischemic changes with stress. (Final ECG interpretation and other stress and monitoring data are reported separately by Cardiology.) IMAGING FINDINGS: Study quality is good. Images obtained after rest and stress injections show normal LV activity. LV and RV volumes appear normal. Gated images obtained at rest and with stress show normal LV wall motion and thickening. LVEF at rest is 67%. LVEF at stress is greater than 70%. IMPRESSION: 1. Normal study. 2. Appropriate pharmacologic stress. 3. Normal myocardial perfusion. 4. Normal resting LV function. No deterioration of function is noted with pharmacologic stress. 5. Normal extracardiac tracer distribution. 6. No previous [facility] study for comparison. NONINVASIVE RISK STRATIFICATION: The above findings are considered low risk (<1% annual mortality rate) based on the following criterion: - Normal or small myocardial perfusion defect at rest or with stress (JACC. 2012;59(9):857-81.) Signed: Maury Raymond MD Report Verified Date/Time: 07/04/2018 15:00:54 Reading Location: [id number] [facility] Reading Room Performing Organization Address City/State/Zipcode Phone Number picoChip Treadmill tolerance(Non-Nuclear Treadmill) (07/04/2018 11:28 AM CDT) Specimen Narrative Performed At Protocol Name [facility] MUSE Time In Exercise Phase 00:01:00 Max. Systolic BP 96 mmHg Max Diastolic BP 59 mmHg Max Heart Rate 68 BPM Max Predicted Heart Rate 156 BPM Reason For Termination Predetermined end point Reason for Test Dyspnea Target HR Formula (220 - Age)*100% Arrhythmias none Resting ECG sinus bradycardia ST Changes No Significant Changes Overall Impression Indeterminate due to pharmacological stress Chest Pain none HR Response To Exercise BP Response To Exercise CRESTOR EFFEXOR LISINOPRIL Confirmed by fellow Yudelka Zuniga ([id number]) on 07/04/2018 1:15:29 PM Confirmed by MD CHRISTIANSON JORGE ([id number]) on 07/17/2018 2:29:14 PM Procedure Note Interface, External Ris In - 07/17/2018 2:29 PM CDT Protocol Name [place] Time In Exercise Phase 00:01:00 Max. Systolic BP 96 mmHg Max Diastolic BP 59 mmHg Max Heart Rate 68 BPM Max Predicted Heart Rate 156 BPM Reason For Termination Predetermined end point Reason for Test Dyspnea Target HR Formula (220 - Age)*100% Arrhythmias none Resting ECG sinus bradycardia ST Changes No Significant Changes Overall Impression Indeterminate due to pharmacological stress Chest Pain none HR Response To Exercise BP Response To Exercise CRESTOR EFFEXOR LISINOPRIL Confirmed by fellow Yudelka Zuniga ([id number]) on 07/04/2018 1:15:29 PM Confirmed by MD CHRISTIANSON JORGE ([id number]) on 07/17/2018 2:29:14 PM Performing Organization Address City/[facility] [place] Phone Number GE MUSE ECG 12 lead (07/04/2018 11:17 AM CDT) Specimen Narrative Performed At Ventricular Rate 53 BPM GE MUSE Atrial Rate 53 BPM P-R Interval 182 ms QRS Duration 86 ms Q-T Interval 446 ms QTC Calculation(Bazett) 418 ms P [place] 73 degrees R [place] 58 degrees T [place] 66 degrees Sinus bradycardia Otherwise normal ECG 18 JUN 2018 No significant changes Confirmed by MD BOOTH YOCHAI ([id number]) on 07/04/2018 1:46:12 PM Procedure Note Interface, External Ris In - 07/04/2018 1:46 PM CDT Ventricular Rate 53 BPM Atrial Rate 53 BPM P-R Interval 182 ms QRS Duration 86 ms Q-T Interval 446 ms QTC Calculation(Bazett) 418 ms P [place] 73 degrees R [place] 58 degrees T [place] 66 degrees Sinus bradycardia Otherwise normal ECG 18 JUN 2018 No significant changes Confirmed by MD BOOTH YOCHAI ([id number]) on 07/04/2018 1:46:12 PM Performing Organization Address City/[facility] [place] Phone Number GE MUSE after 06/25/2018 Insurance Payer Benefit Plan / Group Subscriber ID Type Phone Address MEDICARE MEDICARE A B xxxxxxxxxxx Medicare MCR SUPPLEMENT/[employer]IV[employer] xxxxxxx Advance Directives Patient has advance care planning documents, and code status on file. For more information, please contact:[id number] [place], [place] [phone] Code Status Date Activated Date Inactivated Comments Full Code 09/02/2018 8:07 AM 09/24/2018 10:22 AM This code status was determined by: Patient Full Code 06/18/2018 6:43 PM 06/18/2018 11:35 PM This code status was determined by: Patient Full Code 08/08/2016 4:53 PM 08/14/2016 2:40 PM This code status was determined by: Patient Full Code 08/08/2016 4:51 PM 08/08/2016 4:53 PM This code status was determined by: Patient Full Code 08/02/2016 9:20 AM 08/08/2016 4:51 PM This code status was determined by: Patient
--- OUTSIDE RECORDS SUMMARY | 2019-06-26 07:33 | XMS REPORT ---
:1955 [facility] [address] [place] [address] [address] [place] [address] Care Team Providers Name Role Phone KEN VILLARREAL Unavailable Unavailable TEETRACEEVARASHLEYU, JOSE ESTES Unavailable Unavailable AMY, AVI JIMÉNEZ Unavailable Unavailable TOBIN TURNER Unavailable Unavailable NORMAN BAI Unavailable Unavailable Problems This patient has no known problems. Allergies, Adverse Reactions, Alerts This patient has no known allergies or adverse reactions. Medications This patient has no known medications. Results Test Description Test Time Test Comments Text Results Atomic Results Result Comments CT, CHEST, WITH IV CONTRAST 2019-02-25 11:23:00 Addendum BeginsREPORT STATUS:A RADIATION DOSE: Total DLP: 516.87 mGy*cm Estimated effective dose: (DLP x 0.014 x size factor) mSv CTDIvol has been reviewed. It is below the limits set by the Radiation Protocol Committee (RPC). Dose modulation, iterative reconstruction, and/or weight based adjustment of the mA/kV was utilized to reduce the radiation dose to as low as reasonably achievable. Signed: Damaso Del Rosario MDReport Verified Date/Time: 02/25/2019 11:23:17 Addendum EndsFINAL REPORT EXAM: CT Chest WITH contrast INDICATION: Lymphadenopathy. Prior lung nodules. COMPARISON: October 20, 2018 TECHNIQUE:Chest was scanned utilizing a multidetector helical scanner [...] is essentially unchanged Signed: Damaso Del Rosario MDReport Verified Date/Time: 02/25/2019 10:51:51 -CREATININE 2019-02-24 15:46:00 Test Item Value Reference Range Comments POC-CREATININE (BEAKER) (test 1.0 mg/dL 0.6-1.3 TESTED AT [facility] 7200 zvsp=1645) [facility] [address] POC-EGFR (BEAKER) (test 75 mL/min/1.73M2 yyzx=9264) MM, U/S, BIOPSY, BREAST, [id number] 17:45:00Reason for Exam:-> R59.1Addendum BeginsN#: [id number]: 01/26/2019 Sb Baron M.D. Pathology results are now available and are copied below: LYMPH NODE, AXILLA, LEFT, CORE BIOPSY:-REACTIVE FOLLICULAR HYPERPLASIA-NO EVIDENCE OF LYMPHOMA-SEE COMMENT COMMENTHistologic evaluation of the left axillary lymph nodecore biopsy primarily demonstrates benign features. No mass lesions or granuloma identified. Immunohistochemical stain evaluation and corresponding flow cytometric analysis([id number]) did NOT demonstrate evidence of a neoplastic B or T lymphocyte process on this sample. Overall findings are consistent with reactive follicular hyperplasia. Clinical correlation is recommended. Addendum [facility]#: [id number] - MM, U/S, BIOPSY, BREAST, LEFTULTRASOUND GUIDED BIOPSY LEFT BREAST: 01/21/2019CLINICAL:Ultrasound guided core biopsy of a left axillary lymph node. PATIENT CONSENT: The procedure, risksand benefits, alternatives were discussed with the patient. Informed consent was obtained. A time-out was performed. An ultrasound guided biopsy using real-time ultrasound was performed for the lymphnode located in the left axilla. The skin [...] were no immediate complications. IMPRESSION: ULTRASOUND GUIDED BIOPSYUltrasound guided biopsy of the lymph node in the left axilla was successful with no apparent post procedure complications. Pathology is pending. Sb Baron M.D. ds/:01/21/2019 11:49:18 [employer]: Opal Duff Code Number Stamper, [facility] [id number] Electronically signed by: SB BARON on 2018 05:45 PMTISSUE [id number] 14:23:00Surgical Pathology Report Case: [id number] Authorizing Provider: Sb Baron, Collected: 01/21/2019 Iraj MORALES OrderingLocation: [facility] Received: 124Aide Pathologist: Dominick De La O MD Specimen: Axilla, Left LYMPH NODE, AXILLA, LEFT, CORE BIOPSY:-REACTIVE FOLLICULAR HYPERPLASIA-NO EVIDENCE OF LYMPHOMA-SEE COMMENT Signing Pathologist Direct Phone Line: Histologic evaluation of the left axillary lymph node core biopsy primarily demonstrates benign features. No mass lesions or granuloma identified. Immunohistochemical stain evaluation and corresponding flow cytometric analysis([id number]) did NOT demonstrate evidence of a neoplastic B or T lymphocyte process on this sample. Overall findings are consistent with reactive follicular hyperplasia. Clinical correlation is recommended. [id number] x1; [phone] x8Left axillary lymph node biopsyLeft axillary lymph node biopsyThe specimen is received in a formalin- filled container and labeled with the patient's information and labeled "left axillary lymph node biopsy" and consists of four hemorrhagic fatty core biopsies ranging from 0.4 to 1 cm. Ink code: black. The specimen is entirely submitted A2.CG/pl Histologic sections of a left axillary lymph node core biopsy demonstrates three core biopsy fragments of varying size comprised by lymphoid tissue. The lymphoid tissue demonstrates a follicular pattern with reactive germinal centers. The germinal centers demonstrates lymphocytes of varying sizeand tingible body macrophages. No evidence of granuloma or necrosis is seen.The interfollicular lymphoid tissue appears minimally expanded and primarily comprised by smalllymphocytes and small number of large cells ( immunoblasts) admixed. Histiocytes noted in some sinuses.Immunohistochemical stains, with adequate controls, are performed on block A1 for CD3, PAX-5, BCL- 2. BCL-6, CD10, CD30, CD23, [place], Lambda . Germinal centers are positive for PAX-5, BCL-6 and CD10. XQ97cuudibfryq follicular dendritic cells meshworks of follicles. The interfollicular areas are T cell predominant and highlighted by CD3 and BCL2. CD30 demonstrates rare immunoblasts. [place] and Lambda demonstrate few polyclonal plasma cells present. Overall findings are consistent with reactive follicular hyperplasia. The interpretation of this case included the use of immunohistochemistry or special stains. Immunohistochemistry technical testing was performed at [facility], Pathology Laboratory where it was developed and its performance characteristics were determined. It has not been cleared or approved by the U.S. Food and Drug Administration. The FDA has determined that such clearance or approval isnot necessary. The test is used for clinical purposes. It should not be regarded as investigational or for research. This laboratory is certified under the Clinical Laboratory Improvement Amendments iq1667 (CLIA-88) as qualified to perform high complexity clinical laboratory testing.The immunohistochemistry test was developed and its performance characteristics determined by [facility], Pathology Laboratory. It has not been cleared or approved by the U.S. Food and Drug Administration. The FDA has determined that such clearance or approval is not necessary. The test is used for clinical purposes. It should not be regarded as investigational or for research. This laboratory is certified under the Clinical Laboratory Improvement Amendments of 1988 (CLIA-88) as qualified to performhigh complexity clinical laboratory testing.The following immunohistochemical stains were evaluated:CD3, PAX-5, BCL-2. BCL-6, CD10, CD30, CD23, [place], LambdaFLOW CYTOMETRY [id number] 13:09:00 Test Item Value Reference Range Comments FLOW CYTOMETRY RESULT POINTER (CHAVA) See Separate Report (test meqo=3608) FLOW CYTOMETRY AP CASE # (CHAVA) (test [id number] jnry=2817) FLOW [id number] 10:20:00Flow Cytometry Report Case: [id number] Authorizing Provider: Sb Baron, Collected: 01/21/2019 0955 OrderingLocation: [facility] [place] Received: 2018 1139 Pathologist: Dominick De La O MD Specimen: Other LYMPH NODE, AXILLARY , LEFT, US GUIDED BIOPSY, FLOW CYTOMETRY:-NO ABERRANT T LYMPHOCYTE POPULATION- NO MONOTYPIC B LYMPHOCYTE POPULATION-SEE COMMENT Flow cytometric analysis of a left axillary lymph node biopsy does NOT demonstrate evidence of a neoplastic Bor T lymphocyte process. However, flow cytometry for evaluation of Hodgkin lymphoma or other B celllymphoma with only rare large neoplastic cells is limited. Recommend morphologic correlation with biopsy([id number]).[id number] y.o. male presents for an ultrasound guided core biopsy of a left axillary lymph nodeLYMPH NODE, AXILLARY, LEFT, US GUIDED BIOPSYCD8, surface-kappa, CD56, surface-lambda, CD5, CD19, CD10, CD3, CD20, CD4, YF77Uteexure Viability: 88.7% Number of Events Acquired: 75214 The following populations are identified: Lymphocytes: Bright CD45+ lymphocytes comprise 98.0% of total cells. T cells show a CD4:CD8 ratio of 5.9 and normal expression of the harris T cell antigens CD3 and CD5. B cells are polytypic with a kappa:lambda ratio of 1.5. Myeloid/ monocytic populations: As identified by CD45 and light scatter characteristics, granulocytes comprise 1.2% cells analyzed, and monocytescomprise 0.4% of total cells. The remaining events analyzed represent nonviable cells, non- hematolymphoid cells, and debris.These tests were developed and their performance characteristics determined by [facility] They have not been cleared or approved by the U.S. Food and Drug Administration. The FDA has determined that such clearance or approval is not necessary. It should notbe regarded as investigational or for research. This laboratory is certified under the Clinical Laboratory Improvement Amendments of 1988 ("CLIA") as qualified to perform high-complexity clinical testing.MM, U/S, FNA, BREAST, [id number] 08:19:00Reason for Exam:->CT scan showed left axillary and pectoral LymphnodesAddendum BeginsKING'S DAUGH[facility]#: [id number]: 12/01/2018 Terry Abarca M.D. Cytology results are now available and demonstrate no evidence of malignant epithelial cellls. Addendum [facility]dsKING'[facility] DAUGH[facility]#: [id number] - MM, U/S, FNA , BREAST, LEFTULTRASOUND GUIDED FINE NEEDLE ASPIRATION LEFT BREAST: 2018PATIENTCONSENT: The procedure, risks, benefits and alternatives were discussed with the patient. Informed consent was obtained. A time-out was performed. A fine needle aspiration was performed for the lymphnode located in the left axilla. The skin was prepped in the usual manner. Local anesthetic was administered to the access site. A 18 gauge needle was percutaneously placed into the abnormality under ultrasound guidance. Once the needle was documented to be in the correct location, six passes weremade. The specimens were sent to the laboratory for cytological analysis. IMPRESSION: FINE NEEDLE ASPIRATIONFine needle aspiration of the lymph node in the left axilla was successful with no apparent post procedure complications. Terry Abarca M.D. pth/:11/26/2018 08:44:00 [employer]: Opal Duff Code Number Stamper, [facility] [id number]- 01-25 09:46:00Medical Cytology Report Case: [id number] Authorizing Provider: Terry Abarca MD Collected: 11/25/2018 1432 Ordering Location: [facility] Received: 11/25/2018 1550 Pathologist: Jimbo Dow MD Specimen: Axilla, Left LEFT AXILLARY LYMPH NODE FNA BY CLINICIAN ( CYTOSPINS): - NEGATIVE FOR EPITHELIAL MALIGNANCY - FAVOR REACTIVE LYMPHOID PROCESS (SEE COMMENT) Signing Pathologist Direct Phone Line: [phone] by Jimbo Dow MD on 11/28/2018 at 9:46 AMINTRADEPARTMENTAL CONSULTATION: - Dominick De La O MD has seen the case and agrees with the diagnosis. Please also see flow cytometry report [id number]. If there is a strong suspicion of a hematologic malignancy, appropriate evaluation is recommended. 55932Kzpudqunis of left axillary adenopathyLEFT AXILLARY LYMPH NODE FNA5 mls in cytorich red; 4 cytospinsCollected: [id number]: [id number] [facility], Department of Pathology, [address] [place] [address], [facility], [address] [place] [address], Tel [facility], Department of Pathology, [address] [place] [address], KYTS CYTOMETRY [id number] 19:33:00 Test Item Value Reference Range Comments FLOW CYTOMETRY RESULT POINTER (CHAVA) See Separate Report (test ahaq=8750) FLOW CYTOMETRY AP CASE # (CHAVA) (test [id number] pkwa=2406) FLOW [id number] 15:31:00Flow Cytometry Report Case: [id number] Authorizing Provider: Terry Abarca MD Collected: 11/25/2018 1432 Ordering Location: [facility] [place] Received: 11/25/2018 9712 Pathologist: Dominick De La O MD Specimen: Other ADENOPATHY, LEFT AXILLARY, FINE NEEDLE ASPIRATE, FLOW CYTOMETRY:-LIMITED EVALUATION DUE TO PAUCICELLULARITY-NO ABERRANT T LYMPHOCYTE POPULATION-NO MONOTYPIC B LYMPHOCYTE POPULATION-SEE COMMENT Flow cytometric analysis of a left axillary adenopathy FNA did not demonstrate evidence of a non-Hodgkin B or T lymphocyte process. However, Hodgkin lymphoma and Large B cell lymphomas with rare large neoplastic cells are not easily discernible by flow cytometry. Of note, the sample is considered paucicellular which may limit the evaluation. Only 8,950 eventswere analyzed due to nature of the sample. Routine lymph node analysis captures 100,000 events for evaluation. Recommend correlation with cytology sample.[id number] y.o. male here for evaluation of leftaxillary adenopathyADENOPATHY, LEFT AXILLARY, FINE NEEDLE ASPIRATECD8, surface-kappa, CD56, surface-lambda, CD5, CD19, CD10, CD3, CD20, CD4, QX25Mqoeyzya Viability: 95.7% Number of Events Acquired: 8950; Paucicellular (Routine lymph node analysis captures 100,000 events) The following populationsare identified: Lymphocytes: Bright CD45+ lymphocytes comprise 96.8% of total cells. T cells show a CD4:CD8 ratio of 6.6 and normal expression of the harris T cell antigens CD3 and CD5. B cells are polytypic with a kappa:lambda ratio of 1.7. Myeloid/monocytic populations: As identified by CD45 and lightscatter characteristics, granulocytes comprise 0.8% of cells analyzed, and monocytes comprise 1.1% of total cells. The remaining events analyzed represent nonviable cells, non-hematolymphoid cells, anddebris.These tests were developed and their performance characteristics determined by [facility] They have not been cleared or approved by the U.S. Food and Drug Administration. The FDA has determined that such clearance or approval is not necessary. It should not be regarded as investigational or for research. This laboratory is certified under the Clinical Laboratory Improvement Amendments of 1988 ("CLIA") as qualified to perform high-complexity clinical testing.CT, CHEST, WITHOUT IV [id number] 08:46:00Addendum BeginsREPORT STATUS:A Addendum: Comparison study in the basilar system dated 07/22/2018. Nodules unchanged; however, given only three month interval, continued follow-up recommended. CT in nine months, July 2019, recommended. Signed: Jelena Dixon MDReport Verified Date/Time: 2017 08:46:44 Reading Location: [facility] Reading Room [address] [place], [place] [id number] EndsFINAL REPORT EXAM: CT Chest WITHOUT contrast INDICATION: Thoracic outlet syndrome, lung nodule COMPARISON: None. TECHNIQUE: The Chest was scanned utilizing a multidetector helical scanner without the use of IV contrast. Coronal and sagittal reformations were obtained. Reformatted axial MIP images were obtained and reviewed. IV CONTRAST: None COMPLICATIONS: None RADIATION DOSE: Total DLP: 160 mGy *cm Estimated effective dose: (DLP x 0.015 x [...] Within limitations of nonenhanced exam, no suspicious mediastinalor hilar adenopathy. Left axillary and subpectoral lymph [...] adenopathy. Clinical/laboratory correlation recommended. Signed: Jelena Dixon Verified Date/Time: 10/20/2018 15:52:58 ReadingLocation : [facility] Reading Room [address] [place] [address] SMYTH, [id number] 14:38:00Reason for Exam:->G54.0 Thoracic Outlet SyndromeFINAL REPORT Ultrasound-guided left anterior scalene muscle block. History: Left neurogenic thoracic syndrome Modality: Ultrasound Sedation: None Chief Of Safety And Protection: Taqueria Ray MD. Sheriff: None. Approach: Midbody of the left anterior [...] patient that were not prepped, and hand hygiene , mask, head covering, and sterile gown for performing radiologist and scrub technologist. Under direct ultrasound guidance a 25-gauge needle was advanced into the mid body of the left anteriorscalene muscle. An ultrasound image documenting the needle [...] left anterior scalene block. Signed: Taqueria Ray Verified Date/Time: 09/29/2018 14:38:16 Reading Location: [facility] P048 Angio Body Reading Room TISSUE [id number] 18:40: 00Surgical Pathology Report Case: [id number] Authorizing Provider: Tobin Turner Collected : 09/02/2018 0955 Ordering Location: [facility] Received: 09/02/2018 1235 SERVICES Pathologist: Jimbo Dow MD Specimen: Hand, Right, Palmar Fascia SOFT TISSUE, RIGHT HAND, BIOPSY:- FIBROCONNECTIVE TISSUE WITHOUT SIGNIFICANT PATHOLOGIC ALTERATION Signing Pathologist Direct Phone Line: [phone] signed by Jimbo Dow MD on 09/08/2018 at 6 :40 [id number] finger of right thumb, trigger finger of right index finger, trigger finger right middle finger, trigger finger left middle fingerA. Right hand palmar fasciaReceived in formalin labeled"hand, right", description " palmar fascia" is a 2.2 x 1.5 x 0.2 cm aggregate of day-white to yellow-gregory rubbery soft tissue. The specimen is entirely submitted in cassette A1. DB/ plPerformedPOCT-GLUCOSE [id number] 11:09:00 Test Item Value Reference Range Comments POC-GLUCOSE METER (BEAKER) 176 mg/dL 70-110 TESTED AT [address] (test hict=1796) [facility] [address] POCT-GLUCOSE [id number] 08:31:00 Test Item Value Reference Range Comments POC-GLUCOSE METER (BEAKER) 155 mg/dL 70-110 TESTED AT [address] (test sfzq=1506) [place] [address] HEPARIN ASSAY - [id number] 12:44:00 Test Item Value Reference Range Comments UNFRACTIONATED HEPARIN-ANTI 10A (BEAKER) (test < u/ml 0.30-0.70 bgvb=3575) Recommendations for Monitoring Unfractionated Heparin Therapeutic Range: 0.3- 0.7 u/mL with continuous IV [id number] 11:54:00 Test Item Value Reference Range Comments SODIUM (BEAKER) (test futa=600) 138 meq/L 136-145 POTASSIUM (BEAKER) (test etpq=669) 4.0 meq/L 3.5-5.1 CHLORIDE (BEAKER) (test nisf=724) 102 meq/L 98-107 CO2 (BEAKER) (test aeqy=148) 27 meq/L 22-29 [id number] 11:54:00 Test Item Value Reference Range Comments GLUCOSE RANDOM (BEAKER) (test mdea=915) 120 mg/dL 70-105 BUN AND [id number] 11:54:00 Test Item Value Reference Range Comments BLOOD UREA NITROGEN 30 mg/dL 7-21 (BEAKER) (test vrkf=642) CREATININE (BEAKER) (test 1.00 mg/dL 0.57-1.25 lqeb=575) EGFR (BEAKER) (test 75 mL/min/1.73 sq m ESTIMATED GFR IS NOT eztc=7772) ACCURATE CREATININE CLEARANCE IN PREDICTING GLOMERULAR FILTRATION RATE. ESTIMATED GFR IS NOT APPLICABLE FOR DIALYSIS PATIENTS. [id number] 11:48:00 Test Item Value Reference Range Comments PROTIME (BEAKER) (test dhju=633) 13.3 seconds 11.7-14.7 INR (BEAKER) (test rmqw=147) 1.0 <=5.9 PARTIAL THROMBOPLASTIN TIME (BEAKER) (test 29.5 seconds 22.5-36.0 wjgm=341) RECOMMENDED COUMADIN/WARFARIN INR THERAPY RANGESSTANDARD DOSE: 2.0 - 3.0 Includes: PROPHYLAXIS forvenous thrombosis, systemic embolization; TREATMENT for venous thrombosis and/or pulmonary embolus.HIGH RISK: Target INR is 2.5-3.5 for patients with mechanical heart valves.[id number] 11:34:00 Test Item Value Reference Range Comments HEMOGLOBIN (BEAKER) (test mzlj=192) 14.4 GM/DL 13.7-17.5 PLATELET [id number] 11:34:00 Test Item Value Reference Range Comments PLATELET COUNT (BEAKER) (test dzan=999) 199 K/CU MM 150-450 PET, CARDIAC PERFUSION MULTIPLE STUDIES, REST AND [id number] 15:00: 00Reason for Exam:->dyspneaFINAL REPORT PROCEDURE: Rest/Stress MYOCARDIAL PERFUSION PET with regadenoson\\XA9\\ CPT CODE: 05014 INDICATION: Dyspnea HISTORY: Cardiac risk factors: Stroke. Other cardiovascular history: No reported CAD. Recent cardiac symptoms: Dyspnea, chest pain. Current cardiovascular-related medications: Crestor, lisinopril. PROTOCOL: Limited low-dose CT imaging was performed for attenuation correction. 40.0 mCi of Rb-82 chloride was injected iv at rest, and gated PET( positron emission tomography) images were obtained. Subsequently, 40.1 mCi of Rb -82 chloride was injected iv at expected peak [...] ECG evaluation revealed sinus bradycardia at rest andno ischemic changes with stress. (Final ECG interpretation and other stress and monitoring data are reported separately by Cardiology.) IMAGING FINDINGS: Study quality is good. Images obtained after rest and stress injections show normal LV activity. LV and RV volumes appear normal. Gated images obtained at rest and with stress show normal LV wall motion and thickening. LVEF at rest is 67%. LVEFat stress is greater than 70%. IMPRESSION: 1. Normal study. 2. Appropriate pharmacologic stress. 3. Normal myocardial perfusion. 4. Normal resting LV function. No deterioration of function is noted with pharmacologic stress. 5. Normal extracardiac tracer distribution. 6. No previous [facility] study for comparison. NONINVASIVE RISK STRATIFICATION: The above findings are considered low risk (<1% annual mortality rate) based on the following criterion:- Normal or small myocardial perfusion defect at rest or with stress(JACC. 2012;59(9):857-81.) Signed: Maury Raymond MDReport Verified Date/Time: 07/04/2018 15:00:54 Reading Location: [address] Reading Room POCT-GLUCOSE [id number] 19:08:00 Test Item Value Reference Range Comments POC-GLUCOSE METER (BEAKER) 127 mg/dL 70-110 TESTED AT [facility] [address] (test vvsw=3369) [facility] [address] POCT-GLUCOSE [id number] 16:19:00 Test Item Value Reference Range Comments POC-GLUCOSE METER (BEAKER) 112 mg/dL 70-110 TESTED AT [facility] [address] (test llho=6774) [facility] [address] BASIC METABOLIC [id number] 14:22:00 Test Item Value Reference Range Comments SODIUM (BEAKER) (test 136 meq/L 136-145 nlew=687) POTASSIUM (BEAKER) (test 4.1 meq/L 3.5-5.1 wckm=317) CHLORIDE (BEAKER) (test 106 meq/L 98-107 lrki=764) CO2 (BEAKER) (test 22 meq/L 22-29 oork=675) BLOOD UREA NITROGEN 21 mg/dL 7-21 (BEAKER) (test dfdr=609) CREATININE (BEAKER) (test 0.87 mg/dL 0.57-1.25 slwm=391) GLUCOSE RANDOM (BEAKER) 152 mg/dL 70-105 (test enyg=357) CALCIUM (BEAKER) (test 9.7 mg/dL 8.4-10.2 fzxn=112) EGFR (BEAKER) (test 88 mL/min/1.73 sq m ESTIMATED GFR IS NOT nibw=4231) ACCURATE CREATININE CLEARANCE IN PREDICTING GLOMERULAR FILTRATION RATE. ESTIMATED GFR IS NOT APPLICABLE FOR DIALYSIS PATIENTS. [id number] 14:16:00 Test Item Value Reference Range Comments PROTIME (BEAKER) (test zckt=562) 14.9 seconds 11.7-14.7 INR (BEAKER) (test zkis=488) 1.2 <=5.9 PARTIAL THROMBOPLASTIN TIME (BEAKER) (test 30.7 seconds 22.5-36.0 jarp=245) RECOMMENDED COUMADIN/WARFARIN INR THERAPY RANGESSTANDARD DOSE: 2.0 - 3.0 Includes: PROPHYLAXIS forvenous thrombosis, systemic embolization; TREATMENT for venous thrombosis and/or pulmonary embolus.HIGH RISK: Target INR is 2.5-3.5 for patients with mechanical heart valves.CBC (HEMOGRAM ONLY)2018-06-18 14:03:00 Test Item Value Reference Range Comments WHITE BLOOD CELL COUNT (BEAKER) (test sdnu=851) 5.7 K/ L 3.5-10.5 RED BLOOD CELL COUNT (BEAKER) (test qplm=699) 4.83 M/ L 4.63-6.08 HEMOGLOBIN (BEAKER) (test xkpl=094) 13.9 GM/DL 13.7-17.5 HEMATOCRIT (BEAKER) (test gwin=016) 42.1 % 40.1-51.0 MEAN CORPUSCULAR VOLUME (BEAKER) (test twsg=828) 87.2 fL 79.0-92.2 MEAN CORPUSCULAR HEMOGLOBIN (BEAKER) (test 28.8 pg 25.7-32.2 qmcv=572) MEAN CORPUSCULAR HEMOGLOBIN CONC (BEAKER) (test 33.0 GM/DL 32.3-36.5 ysjj=746) RED CELL DISTRIBUTION WIDTH (BEAKER) (test 13.0 % 11.6-14.4 zvoy=921) PLATELET COUNT (BEAKER) (test smlv=058) 181 K/CU MM 150-450 MEAN PLATELET VOLUME (BEAKER) (test nrnt=880) 9.0 fL 9.4-12.4 NUCLEATED RED BLOOD CELLS (BEAKER) (test 0 /100 WBC 0-0 ttwk=937) TISSUE [id number] 10:43:00Surgical Pathology Report Case: [id number] Authorizing Provider: Tobin Turner Collected: 03/19/2017 1124 Ordering Location: [facility] PERIOPERATIVE Received: 03/19/2017 1407 SERVICES Pathologist: Zach Campos MD Specimen: Hand, Left, jameson fascia PART A LEFT HAND PALMAR FASCIA: FIBROCONNECTIVE TISSUE, NO SIGNIFICANT HISTOPATHOLOGIC ABNORMALITIES. [id number] ring finger left handLeft handpalmer fasciaThe specimen is received in a formalin-filled container and labeled with the patient's information and labeled "left hand palmar fascia" and consists of multiple fragments of yellow-white soft tissue measuring 1.6 x 1 x 0.4 cm in aggregate. Submitted entirely A1. CG/plPOCT-GLUCOSE [id number] 10:48:00 Test Item Value Reference Range Comments POC-GLUCOSE METER (BEAKER) 147 mg/dL 70-110 TESTED AT [facility] [address] (test krnm=0193) [facility] [address] [id number] 17:03:00 Test Item Value Reference Range Comments SODIUM (BEAKER) (test exqg=188) 136 meq/L 136-145 POTASSIUM (BEAKER) (test lnkk=307) 4.3 meq/L 3.5-5.1 CHLORIDE (BEAKER) (test ltfc=908) 106 meq/L 98-107 CO2 (BEAKER) (test chzu=438) 20 meq/L 22-29 [id number] 17:03:00 Test Item Value Reference Range Comments GLUCOSE RANDOM (BEAKER) (test ootc=704) 107 mg/dL 70-105 Effective 09/21/2014: Reference Range Change-Adult onlyNew: 70-105 Previous : 70-110BUN AND [id number] 17:03:00 Test Item Value Reference Range Comments BLOOD UREA NITROGEN 25 mg/dL 7-21 (BEAKER) (test fqfr=433) CREATININE (BEAKER) (test 1.07 mg/dL 0.57-1.25 rvih=332) EGFR (BEAKER) (test 70 mL/min/1.73 sq m ESTIMATED GFR IS NOT ibkr=0911) ACCURATE CREATININE CLEARANCE IN PREDICTING GLOMERULAR FILTRATION RATE. ESTIMATED GFR IS NOT APPLICABLE FOR DIALYSIS PATIENTS. [id number] 16:38:00 Test Item Value Reference Range Comments HEMOGLOBIN (BEAKER) (test dywy=522) 14.3 GM/DL 13.0-16.8
[2019-06-26] MEDS ORDERED: NA CHLORIDE 0.9% 1,000 ML ONE ×2 (08:03→11:04)
[2019-06-26] MEDS: OXYMETAZOLINE HCL 0.05% 15ML NAS ONE ×5 (08:05→09:08)
[2019-06-26] MEDS ORDERED: OXYMETAZOLINE HCL 0.05% 15ML NAS ONE (08:14)
[2019-06-26] MEDS ORDERED: NA CHLORIDE 0.9% 500 ML ONE (08:15)
[2019-06-26] MEDS ORDERED: PROPOFOL 200 MG/20 ML VIAL IV ONE (08:17)
[2019-06-26] MEDS ORDERED: LIDOCAINE 2% MPF 5 ML VIAL ONE (08:17)
[2019-06-26] MEDS ORDERED: FENTANYL CITR 250 MCG/5 ML ONE (08:17)
[2019-06-26] MEDS ORDERED: dexAMETHasone 10 MG/ML VIAL ONE (08:17)
[2019-06-26] MEDS ORDERED: MIDAZOLAM HCL 2 MG/2 ML INJ ONE (08:17)
[2019-06-26] MEDS ORDERED: ROCURONIUM 50 MG/5 ML VIAL IV ONE (08:18)
[2019-06-26] MEDS: LIDOCAINE 1% W/EPI 1:100,000 MDV 20 ML VIAL ONE ×2 (08:19→09:04)
[2019-06-26] MEDS ORDERED: GLYCOPYRROLATE 0.2 MG/ML SYR ONE ×2 (08:21→09:40)
[2019-06-26] MEDS ORDERED: NEOSTIGMINE 1 MG/ML -10 ML VIAL ONE (09:44)
[2019-06-26] MEDS ORDERED: PROMETHAZINE 25 MG/ML VIAL ONE (10:15)
[2019-06-26 11:17] VITALS: BP 152/77; TEMP 97.4; O2SAT 94
[2019-06-26] MEDS ORDERED: TRAMADOL HCL 50 MG TAB ONE (11:54)
--- NOTE | 2019-06-27 14:51 | OP ---
Date of Procedure: 06/26/2019 Surgeon: Maria Esther Jewell MD Preoperative Diagnoses: Nasal obstruction, inferior turbinate hypertrophy, jessi bullosa. Postoperative Diagnoses: Nasal obstruction, inferior turbinate hypertrophy, jessi bullosa. Procedure: Nasal endoscopy with bilateral jessi bullosa resection and bilateral submucous resection of inferior turbinates. Indication For Procedure: Carl Fournier presented with complaints of chronic sinusitis, postnasal drainage, and nasal obstruction. He was treated with maximal medical therapy and underwent postoperative CT imaging demonstrating inferior turbinate hypertrophy with bilateral jessi bullosa. There was no significant mucosal sinus disease, but the patient continued to have nasal obstruction. The risks, benefits, and alternatives were discussed with the patient, who agreed to proceed. Description Of Procedure: The patient was brought to the operating room. He was placed under general anesthesia via oral endotracheal tube. The head of bed was turned 90 degrees. The nasal hairs were trimmed with scissors and the Afrin soaked pledgets were placed within the nasal cavity. The patient was then prepped and draped in standard fashion for sinus surgery. The pledgets were removed and a 0-degree endoscope was used to perform a nasal endoscopy. The patient's inferior turbinates were noted to be well decongested and the middle turbinate was consistent with CT findings of jessi bullosa. A sickle knife was used to incise through the left jessi. Endoscopic scissors were used to trim the inferior and superior portions. A 45-degree Thru-Cut [place] was then used to divide the posterior aspect and lateral aspect of the jessi bullosa was removed. The edges were carefully trimmed using microdebrider and attention was turned to the right side. The right nasal cavity was narrower due to mild septal deviation and a similar procedure was performed on the right jessi bullosa. The middle meatus was packed with Afrin- soaked pledgets bilaterally to aid in hemostasis and attention was turned to the inferior turbinates. A stab incision was created in the inferior turbinate using a sickle knife. A Rissa elevator was used to elevate along the bony surface of the middle turbinate and a microdebrider fitted with inferior turbinate blade was used to remove excess of soft tissue from these areas. After removal, the area was packed with afrin soaked plegets. After removal, the area appeared to be hemostatic. The nasal cavity was thoroughly suctioned. The patient was returned to care of anesthesia for awakening and extubation in the operating room, which proceeded without difficulty. Complications: None. Disposition: The patient will be discharged home later today and follow up with Dr. Jewell in about 10 days for evaluation of healing. KRISTIN Voice ID: [id number] Report ID: [id number] MTDD
== END 2019-06-26 12:50 | disposition home or self-care (01) ==
LOC: OR 07:29
PROVIDERS: ATTEND Otolaryngology
PROC: 09TL8ZZ Resection of Nasal Turbinate, Via Natural or Artificial Opening Endoscopic (ICD-10-PCS; 2019-06-26)
PROC: 09TL8ZZ Resection of Nasal Turbinate, Via Natural or Artificial Opening Endoscopic (ICD-10-PCS; principal; 2019-06-26 09:00)
DX: J34.3 Hypertrophy of nasal turbinates (principal); J34.89 Other specified disorders of nose and nasal sinuses; H90.3 Sensorineural hearing loss, bilateral; E11.9 Type 2 diabetes mellitus without complications; N40.0 Benign prostatic hyperplasia without lower urinary tract symptoms; Z86.718 Personal history of other venous thrombosis and embolism; Z79.01 Long term (current) use of anticoagulants; Z79.4 Long term (current) use of insulin; Z80.9 Family history of malignant neoplasm, unspecified
CPT/HCPCS: 31240; 30140; 93005; 82962 ×2; 88304; 88311; J2704; J2710; J2550; J2250; J3010; J1100; J7030 ×2

== ENCOUNTER 2021-06-23 10:15 | Emergency (ER) | payer OTHER ==
--- OUTSIDE RECORDS SUMMARY | 2021-06-23 10:22 | XMS REPORT | Continuity of Care Document ---
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 Outpatient nullFlavo [facility] [id number] Memoria 20:15:00 05:59:59 r Urology 01 l [facility] 2019-10-22 2019-10-22 Outpatient Obie Florez [facility] [id number] 14:15:00 23:59:59 Aurelio 2019-10-22 2019-10-22 Outpatient MHIE MHIE [id number] Memoria 14:15:00 14:15:00 [facility] 2019-10-19 2019-10-19 Ambulatory nullFlavo [facility] [id number] Memoria 20:30:00 20:30:00 Pre-Reg r Urology 00 [facility] 2019-10-19 2019-10-19 Outpatient Obie Florez [facility] [id number] 14:30:00 14:30:00 Aurelio 2019-08-06 2019-08-06 Office ZACHARY Hutson 1.2.840.114 [id number] 15:09:21 16:51:55 Visit Mara AMBULATOR 350.1.13.21 Y 0.2.7.2.686 [id number] 2017-12-25 2017-12-26 Emergency nullFlavo [facility] [id number] Memoria 20:28:00 01:27:[address] [facility] 2017-12-25 2017-12-25 Outpatient CARLOS Daniel [facility] [id number] 14:28:00 19:27:00 Didi 00 [facility] 2014-03-04 2014-01-27 POP, IFEANYI SUGGS [id number] M emoria 13:30:00 21:23:25 Provider: LISA Rivera nn ELISE, Status: Pen, Time: 1:30 PM 2014-01-27 2014-01-27 AUDIT IFEANYI VASQUESIE [id number] M emoria 16:23:25 21:23:25 nuzhat Hummel 2014-01-27 2014-01-27 Outpatient 1.3.6.1.4 1.3.6.1.4.1 1 [id number] 16:23:25 16:23:25 .[id number]. .[id number] .3.3.4 2014-01-19 2014-01-13 PO1, CAPRICEJUAN SUGGS [id number] M emoria 13:30:00 21:03:28 Provider: LISA Rivera, Status: Pen, Time: 1:30 PM 2014-01-13 2014-01-13 AUDIT CAPRICEJUAN CAPRICEJUAN [id number] M emoria 16:03:28 21:03:28 l Shaheed 2014-01-13 2014-01-13 Outpatient 1.3.6.1.4 1.3.6.1.4.1 1 [id number] 16:03:28 16:03:28 .[id number]. .[id number] 92114.3.3.4 .3.3.4 Results Test Description Test Time Test Comments Results Result Sourc e Comments SPECIAL CHEMISTRY 2021-02-27 2.7 Memoria l 16:48:00 Shaheed SPECIAL CHEMISTRY 2021-02-27 0.6 Memoria l 16:48:00 [place] SPECIAL CHEMISTRY 2021-02-27 22 Memoria l 16:48:00 [place] URINE AND STOOL 2021-02-27 [facility] 16:05:00 *NA*(02/27/21 [place] 11:05 AM) URINE AND STOOL 2021-02-27 [facility] 16:05:00 *NA*(02/27/21 Shaheed 11:05 AM) URINE AND STOOL 2021-02-27 16:05:00 Test Item Value Reference Range Interpretation Comme nts POC UA SG (test code = POC UA SG) 1.015 1 [facility] [id number] 16:05:00 Test Item Value Reference Range Interpretation Comments POC UA pH (test code = POC UA pH) 5.5 1 5.0-8.0 [facility] [id number] 16:05:00Negative *NA*(02/27/21 11:05 AM)[facility] [id number] 16:05:00Negative *NA*(02/27/21 11:05 AM)[facility] [id number] 16:05:000.2[facility] [id number] 16:05:00Negative *NA*(02/27/21 11:05 AM)Sowmya Garcia AND [id number] 16:05:00Negative *NA*(02/27/21 11:05 AM)Sowmya Fonseca, CHEST, 2 [id number] 10:27:00Reason for Exam:->Post-operative state [facility] 1955 Sex: MFINAL REPORT CHEST RADIOGRAPH - 2 VIEWS INDICATION: Shortness of jacqueline ath COMPARISON: 09/26/2020 IMPRESSION: The lungs are well inflated. Unchanged patchy opacities of the left mid to lower lung zones, fissure, possibly focal scarring or pneumonia. The right lung remainsclear. No pleural effusion or pneumothorax. Cardiac silhouette and pulmonary vasculature are unremarkable. Signed: Don Torres Verified Date/Time: 10/03/2020 10:27:37 Reading Location: [facility] Reading Room [address] [place] [address] XR Chest 2 [id number] 10:27:00 Interface, External Ris In - 10/03/2020 10:29 AM CSTFINAL REPORT CHEST RADIOGRAPH - 2 VIEWS INDICATION: Shortness of breath COMPARISON: 09/26/2020 IMPRESSION: The lungs are well inflated. Unchanged patchy opacities of the left mid to lower lung zones, fissure, possibly focal scarring or pneumonia. The right lung remains clear. No pleural effusion or pneumothorax. Cardiac silhouette and pulmonary vasculature are unremarkable. Signed: Don Torres Verified Date/Time: 10/03/2020 10:27:37 Reading Location: [facility] Reading Room [address] [place] [address] [facility] [id number] 11:51:00 Test Item Value Reference Range Interpretation Comments POC-Glucose Meter (test 254 mg/dL 70-110 H : TE STED AT [facility] code = 1538) 6720 [facility], 770 30: Railcar Brake Operator/Techni elyse ID = [id number] for Jas, Teresa Lab Interpretation (test Abnormal code = 19942-9) [facility]PO[facility] [id number] 11:51:00 Test Item Value Reference Range Interpretation Comments POC-GLUCOSE METER 254 mg/dL 70-110 H : [facility] ([facility] (test code = [facility], 1538) [address]79[address]: Railcar Brake Operator/Techni elyse ID = [id number] for Ree d, Teresa POCT-GLUCOSE [id number] 11:38:00 Test Item Value Reference Range Interpretation Comments POC-GLUCOSE METER 131 mg/dL 70-110 H : TESTED A T 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 Mild basal septal hypertrophy is present. All of the LV segments contract normally . LVEF by Morin's method of disk assessment is normal (55-60%) . Grade 1 diastolic dysfunction (impaired relaxation and low- normal LA pressure). Estimated peak systolic PA pressure is cannot be determined due to inadequate TR velocity signal . Signature Findings Technical Quality: Good visualization Left Ventricle The LV endocardium is partially visualized. The leftventricle is chamber size (by vol index) is normal. Mil d basal septal hypertrophy is present. All of the LV segments contract normally . LVEF by Morin's method of disk assessment is normal (55-60%) . Grade 1 diastolic dysfunction (impaired relaxation and low-normal LA pressure). Left Atrium LA size is normal (16-34 ml/m2) . Right Ventricle The right ventricular chamber size and systolic function are within normal limits. Right Atrium RA size is probably normal based on available views. Atrial Septum Normal interatrial septum by available views. Aortic Valve Normal AoV structure and function by limited views and Doppler. Mitral Valve Normal MV structure. Trace mitral regurgitation. Tricuspid Valve Normal TV structure and function by available views andDoppler. Estimated peak systolic PA pressure is cannot be determined due to inadequate TR velocity signal . Pulmonic Valve Normal PV structure andfunction by limited views and Doppler. A trace of pulmonary regurgitation. Aorta Aortic root size (SInus of Valsalva diameter) is mildly dilated . Pericardium No significant pericardial effusion is visualized. IVC/SVC/PA/PV/Pleural A left pleural effusion is noted. The inferior vena cava is not visualized. Chambers/Structures Left Atrium LA Volume: 33.91 mlLA Area: 14.55 cm^2 LA Vol. Index: 19 ml/m^2 Left Ventricle LVIDd: 3.75 cm LVEDV:83.27 ml LVIDs: 2.03 cm LV Septum Diastolic: 0.85 cm LV PW Diastolic: 0.75 cm LV FS: 45.9 % LVEDV Morin's:54.31 ml LVESV Morin's:23.49 ml LVEDVI: 30 ml/m^2 LVEF Morin's: 56.8 % LVESVI: 13 ml/m^2 LVOT Diameter:2.58 cm Right Ventricle RVOT VTI: 7.18 cm TAPSE: 1.68 cm Aorta Ao Root S of Johana.: 3.62 cm Ascending Aorta: 2.91 cm Doppler/Quantitative Measurements Mitral Valve MV Peak E-Wave: 0.55 m/s MV Peak A-Wave: 0.64 m/s E/A Ratio: 0.86 Peak Gradient: 1.21 mmHg Deceleration Time: 203 msec MV Juan. Peak: Tissue Doppler E' Septal Velocity: 0.07 m/s A' Septal Velocity: 0.12 m/s E' Lateral Velocity: 0.08 m/s A' Lateral Velocity: 0.13 m/s E/E': 7.22 Aortic Valve Peak Velocity: 0.72 m/s Mean Velocity: 0.51 m/s Peak Gradient: 2.07 mmHg Mean Gradient: 1.17 mmHg AV Area (continuity): 6.04 cm^2 AV VTI: 14.22 cm AV DVI: 1.16 LVOT Peak Velocity: 0.69 m/s Peak Gradient: 1.89 mmHg Mean Velocity: 0.47 m/s Mean Gradient: 1.05 mmHg LVOT Diameter: 2.58 cm LVOT VTI: 16.45 cm LVOT Area: 5.23 cm^2 LVOT SV:85.96 mlLVOT CO: 7.91 l/min LVOT CI: 4.37 l/min/m^2 RVOT RVOT VTI (PW): 8.41 cm Pulmonic Valve Peak Velocity: 0.74 m/s Peak Gradient: 2.21 mmHg Mean Velocity: 0.47 m/s Mean Gradient: 0.89 mmHgParadise Valley HospitalRAD, CHEST, 1 VIEW, NON [id number] 04:00:00Reason for exam:->s/p 1st rib resectionShould this be performed at the bedside?->Yes [facility] 1955 Sex: MFINAL REPORT RAD, CHEST, 1 VIEW, NON DEPT INDICATION: s/p 1st rib re section COMPARISON: Prior day's exam FINDINGS: Portable frontal view of the chest. IMPRESSION: Support Lines: None. Lungs and pleura: Unchanged airspace and pleural opacities. No pneumothorax.Heart and mediastinum: Stable contours. Additional findings: Postsurgical changes of the cervical spine. Signed: Soraida Arboleda Cox Monettort Verified Date/Time: 09/26/2020 04:00:05 XR chest 1 view portable / [id number] 04:00:00Interface, External Ris In - 09/26/2020 4:03 AM CSTFINAL REPORT RAD, CHEST, 1 VIEW, NON DEPT INDICATION: s/p 1st rib resection COMPARISON: Prior day's exam FINDINGS: Portable frontal view of the chest. IMPRESSION: Support Lines: None. Lungs and pleura: Unchanged airspace andpleural opacities. No pneumothorax.Heart and mediastinum: Stable contours. Additional findings: Posts urgical changes of the cervical spine. Signed: Soraida Arboleda Verified Date/Time: 09/26/2020 04:00:05 [facility] HospitalPOCT- [facility]UCOSE [id number] 22:36:00 Test Item Value Reference Range Interpretation Comments POC-GLUCOSE METER 146 mg/dL 70-110 H : TESTED A T [facility] 6720 (Specialty [place]) (test code = MIRTHA Mchugh [facility], 1538) [address]: Railcar Brake Operator/Techni elyse ID = [id number] for Deandre Bullard POCT-GLUCOSE [id number] 16:32:00 Test Item Value Reference Range Interpretation Comments POC-GLUCOSE METER 199 mg/dL 70-110 H : TESTED A T [facility] 6720 (Specialty [place]) (test code [facility], = 1538) [address]751: Railcar Brake Operator/Techni elyse ID = [id number] for ANUJ MAYNARD ROXI BACA RAD, CHEST, 1 VIEW, NON [id number] 07:34:00Reason for exam:->s/p 1st rib resectionShould this be performed at the bedside?->Yes [facility] 1955 Sex: MFINAL REPORT TECHNIQUE: Frontal view of the chest. INDICATION: 65-ye ar-old man status post first rib resection. COMPARISON: Chest radiograph 09/24/2020. FINDINGS: LINES/TUBES/DEVICES: None. LUNGS: Decreased right basilar atelectasis. Increased fan-like opacity in the left lower lung zone. PLEURA: Questionable small left pleural effusion. No pneumothorax. HEART AND MED IASTINUM: Cardiomediastinal silhouette is unchanged. BONES AND SOFT TISSUES: Unchanged. IMPRESSION:Improved right basilar atelectasis. Increased airspace opacity in the left lower lung zone may represent atelectasis or aspiration. Otherwise, no significant change since 09/24/2020. Signed: Marques Morris MDReport Verified Date/Time: 09/25/2020 07:34:20 Reading Location: [address] Consult ReadingRoom POCT-GLUCOSE [id number] 13:14:00 Test Item Value Reference Range Interpretation Comments POC-GLUCOSE METER 190 mg/dL 70-110 H : Notified RN/MD: (CHAVA) (test code = TESTED AT [facility] 6720 1538) [facility], [address]: Railcar Brake Operator/Techni elyse ID = [id number] for Liz PAUL Blood gas, [id number] 11:07:00 Test Item Value Reference Range Interpretation Comments pH, Arterial (test code 7.46 7.35-7.45 H = 2744-1) pCO2, Arterial (test 38 See_Comment [Autom ated message] code = 2019-8) The system [employer] generated this result transmit po reference range : 35 - 45 mm Hg. The reference range was not used to interpret this result as normal/abnormal . pO2, Arterial (test 73 See_Comment L [Automa po message] code = 2703-7) The system [employer] generated this result transmit po reference range : 80 - 90 mm Hg. The reference range was not used to interpret this result as normal/abnormal . O2 Sat, Arterial (test 95.7 % 96-97 L code = 2708-6) HCO3, Arterial (test 26 mmol/L 21-29 code = 1960-4) Base Excess, Arterial 2.6 mmol/L -2-3 (test code = 1925-7) Patient Temperature 36.6 (test code = 8310-5) FIO2 (test code = 1819) 32 Lab Interpretation Abnormal (test code = 13236-0) [facility] HospitalBLOOD GAS, [id number] 11:07:00 Test Item Value Reference Range Interpretation Comments PH ARTERIAL (BEAKER) (test code = 7.46 7.35-7.45 H 383) PCO2 ARTERIAL (BEAKER) (test code 38 mm Hg 35-45 = 384) PO2 ARTERIAL (BEAKER) (test code = 73 mm Hg 80-90 L 385) O2 SATURATION ARTERIAL (BEAKER) 95.7 % 96.0-97.0 L (test code = 386) HCO3 ARTERIAL (BEAKER) (test code 26 mmol/L 21-29 = 388) BASE EXCESS ARTERIAL (BEAKER) 2.6 mmol/L -2.0-3.0 (test code = 387) PATIENT TEMPERATURE (BEAKER) (test 36.6 code = 1818) FIO2 (BEAKER) (test code = 1819) 32.0 POCT-GLUCOSE [id number] 07:37:00 Test Item Value Reference Range Interpretation Comments POC-GLUCOSE METER 191 mg/dL 70-110 H : TESTED A T [facility] 6720 (BEAKER) (test code = MIRTHA [facility], 1538) 85[address]: Railcar Brake Operator/Techni elyse ID = [id number] for EMELI SCANLON RAD, CHEST, 1 VIEW, NON [id number] 04:29:00Reason for exam:->s/p 1st rib resectionShould this be performed at the bedside?->Yes [facility] 1955 Sex: MFINAL REPORT RAD, CHEST, 1 VIEW, NON DEPT INDICATION: s/p 1st rib re section COMPARISON: Prior day's exam FINDINGS: Portable frontal view of the chest. IMPRESSION: Support Lines: None. Lungs and pleura: Unchanged airspace and pleural opacities. No pneumothorax.Heart and mediastinum: Stable contours. Additional findings: Gas-filled prominent large bowel the upper abdomen is unchanged. Signed: Soraida Arboleda Verified Date/Time: 09/24/2020 04:29:57 POCT-GLUCOSE [id number] 20:45:00 Test Item Value Reference Range Interpretation Comments POC-GLUCOSE METER 160 mg/dL 70-110 H : TESTED A T [facility] 6720 (BEAKER) (test code = MIRTHA [facility] [place], 1538) [address]: Railcar Brake Operator/Techni elyse ID = [id number] for RA GLAND, ROSIO Tissue [id number] 14:00:00 Test Item Value Reference Range Interpretation Comments Case Report (test code Surgical Pathology = 104) Report Case: [id number] Authorizing Provider: Denis Carmona MD Collected: 09/20/2020 02:52 PM Ordering Location: [facility] Received: 09/20/2020 03:54 PM PERIOPERATIVE SERVICES Pathologist: Natalie Hirsch MD Specimen: Rib, Left, Left First Rib & Scalene Muscle DIAGNOSIS (test code = p8emvWFiQKZvs1tpEKUyrNG 3220) uZzEwMzNcZnRuYmpcdWMxIH tccnRmMVxlcGljOTIwMFxhb jAxEUUwlPCoT2XeqkhxWRut MD2lFW0jlFeynDFkhWEeHLM qDnUbu8hdm813bTNfr7fnFA ZXmhjcjLm8sRlyS82gw7B8X rfbA3sjEUKoNTgnhjFurrL4 NXCxqGSgMPc4WWKtjlGnuYv dpM4tFxArCPYOKhIkS3FjIV JJQiwgTEVGVCBGSVJTVCBSS FAnBZ4BUDIIKAoDZkAxEBME S0iRJEYMSF0CPqVNFzocNFX eWLFtGPYnN3VkLD8pNFYNI9 4EEgRuM7DoSopSXEUCXKUHI UPHZRQCF2PFZA0XKD8QZMKD APkLNGXGYB7KW4BBWDwgZs0 RHMzHY0IKWNjCLN9UTTODO0 ZPGQ7ZTR8JAPbkRQZotv59A JP7CoAen2D1IED2CLKeZWJt x8ygRCRfjMRxZjYcVyOaVnB eHnenwYFxDPCaMxSab5poc8 67bTPbe7uoOUKqBmG6hMAtB DDcbDKbM200ECZqOUcvc4zi q9GoVMXiaMSaa3L1TNJZgos epFm4tEcfW17wi0E2VvtxX6 vcGJDdGOWaP9TfZZ0kFHIxE zq3FXT9ZTZ3EFGbGMXuU2Pw JW2zOZHvcDSpMYh7p1bfjKz vOWElVTF6r2iwDBswrlCxTQ 4uzc7esSs0e2shosIzKJPuG KMctSYOWNMoZ4VbyTdmEu9r tWm6rShvZhmqHYX7Avs8FP1 tut94nhx8lAsuGMEijrvxOp M3HTzvGVVyemrpWNh4IIsvU GLgcFB5PRImaHZoO5YwBQFy TV2pvnc2GUE5DXxfBJVwGjA 3STVkdLCkDPTafWtoQGhlr9 83VCB3BzRuOA1dA1Nhf2M7d T3vzIMrTEJfhUXlOfZqLNCd qa2tlXFtAEdkq9UkZTG8vzW 8pJAzvIErBZPzSnP4CAmbGF 3ybx57MOGiCAY8zx6uwSZph CiardKuqTYlZWfnU8PfJXIf s362ZEOgD1VyEMKaq4Z6vcG mIpUzXIQclNS5wtG8VTOqYY 7mgxwvw5quOGmmYEcvSLVic yH2epD1VVRpjZUgO9UyfR5a AANvFR9ttoqlm3erWYP6REv nAXXeQIY4SlJyGPWyw4Ckyd t4TnIet2ZeaJWuELqwO21gh 297EULxyiLhR3blqTJbkqzo iHXbajqcWVgealY8DRKsWUn ryeqfYFQkEXobC3hjMnXvBK VdaAhdPKlhq8AoLCDfEZEtQ iUxpQIaAMCcJez7NRCmqCZi NCFsLaJhW1vsrwknThWNFNG ao1svR8qvzMJJzSSbE3AeKP aiwjTfTPrtHKilTKBnBSL0Q W3iKjZ4TYWcui48 CPT Code(s) (test code k5uerLToYASktKP5GtFlKTQ = 3357) ko9pzk0OseIUieWRcDUffdS TameErvp14iEL9dX71OB1uK CHjJyD5ZQQmscC9Nph1MSCk PRGzuRZfU165d8too7hprmG etLF1qBuqWRPzAAUcNZpeOB ZzMjAgODgzMDBccGFyfQ== CLINICAL HISTORY (test c7kycEIpDQTugXF6FwOuEET code = 3356) dw2hjx5KsnOMepZZsEQbtuN YbjjJzjq56hFG7kC75PQ3eM RWbXjA1XXKwmtU7Fqc1LZOb KAFcwLXmF336g0hpn2dafzQ qiVN8aOiuFMOzENAwMXebOW IdNcXaVKeopvHltLTju5P7f QG8AGS8kpYxn14vXBDoys0= SPECIMEN SOURCE (test z0kqkVPcGGSfxQV9DbUiWAT code = 3377) jg9knv4OwsATupAItKVwjaL YpnsFqax15aYA9bX70JC0oL CNgVrT2BBNobzM1Mtv9SQPd YAFbsVCdX665f1ust4arxsN huHN4bViaXJCvMHLhZMalJJ DrGsKgFooxBYMdTEB6OIOuo n0= GROSS DESCRIPTION y3dwtQPoOJIogSA3OeNqVJT (test code = 3366) qm8vpe9OqqWYqtNTcTLsnqW NvzhSrgc95eLA6lO38LX0kY LLrNcZ8IXTtiiD9Xog9MOHa GZFbbFSrM941n4zgs9uacpZ fkYW6eMmbDMSkCOMiQXhyWM CaWrAoIlGbHDk0MBIrUeLza 7dlwBGbTYnlHAT9bBZlWHDh RIUwIJXjZH73R0DldvBgICk qSGWyNCXfaL1cNB88wAXwfa NdchMlOukmBbYsYtmhe3Qke axjLWTkICBkR6GoNL1lOE60 m8PqZADvjZIgXKY8KbOxxKQ tIkDbrRXrLfkwW92csAAqXW E3xkVqMZB9rTO6JDIsvgplI HdpdGggYWRoZXJlbnQgdGFu AHZftekxm28ydFZ2sQZmqVG yRDCtLFBvqZPud6PnEiKmIQ FsnwL0EV7etmRlEXI2bgPkJ XM7jXN9IKPyTN2xCPVpgx2f GK4tXEIar6ByRCMpGJnsx9a cotPgTBLqRPjvWI98bBMkDX PxGUMXKAtws2GvUDLcw4SjU 8RabCjtoTUilNWhFL3xRX8p UQQqK9Jgk66tFCAkJSAcuCE wqYI9IOKaFNFeaMTlN6QgHG AcirAzm2JqW9Qcp1MzBPjlr BwbJAKfz88jk08qvB1xZEBB A5GzLDYkkZJjuI== Gross assessment was [facility] performed at ([facility], code = 2777) Department of Pathology, [address] [place] [id number], Technical component [facility] was performed at ([facility], code = 2778) Department of Pathology, [address] [place] [address], Professional component [facility] was performed at ([facility], code = 2779) Department of Pathology, [address] [place] [address], [facility] [id number] 14:00:00Surgical Pathology Report Case: [id number] Authorizing Provider: Denis Carmona MD Collected: 09/20/2020 02:52 PM Ordering Location: [facility] Received: 09/20/2020 03:54 PM PERIOPERATIVE SERVICES Pathologist: Natalie Hirsch MD Specimen: Rib, Left, Left First Rib & Scalene Muscle A. RIB, LEFT FIRST RIB AND SCALENE MUSCLE, REMOVAL: - SEGMENT OF RIB AND SMALL PORTION OF SKELETAL MUSCLE, FOR GROSS IDENTIFICATION ONLY. Signing Pathologist Direct Phone Line: [phone] signed by Natalie Hirsch MD on 09/23/2020 at 2:00 [id number] outlet syndromeRib, leftReceived freshlabeled with the patient's name, accession number and "left first rib and scalene muscle" is a 7.0 x1.5 x 0.7 cm gregory, trabeculated rib with adherent gregory-pink soft tissue. The cut surface is gregory-red, trabeculated and firm. No discrete lesions are identified. A gross photograph is taken. No sections are submitted. This case is for gross examination only. PA/pl [facility], Department of Pathology, [address] [place], [place] [id number], [facility], [address] [place] [id number], [facility], [facility] of [facility], [address] [place] [address], [facility] [place] [address], QORM-GLUCOSE [id number] 07:50:00 Test Item Value Reference Range Interpretation Comments POC-GLUCOSE METER 145 mg/dL 70-110 H : TESTED A T [facility] 6720 (BEAKER) (test code = [place], 1538) [address]: Railcar Brake Operator/Techni elyse ID = [id number] for AL MIKEGABBIE LATONIA Basic Metabolic [id number] 05:13:00 Test Item Value Reference Range Interpretation Comments Sodium (test code = 138 meq/L 148-543 4123-2) Potassium (test code = 4.2 meq/L 3.5-5.1 2823-3) Chloride (test code = 106 meq/L 98-107 2075-0) CO2 (test code = 25 meq/L 22-29 2028-9) BUN (test code = 20 mg/dL 7-21 3094-0) Creatinine (test code 0.77 mg/dL 0.57-1.25 = 2160-0) Glucose (test code = 163 mg/dL 70-105 H 2345-7) Calcium (test code = 9.2 mg/dL 8.4-10.2 73380-5) EGFR (test code = 101 mL/min/1.73 sq m [facility] [place] [address]-9) NOT ACCURATE CREATININE CLEARANCE IN PREDICTING GLOMERULAR FILTRATION RATE . ESTIMATED GFR I S NOT APPLICABLE FOR DIALYSIS PATIENTS. CAN (test code = CAN) Railcar Brake Operator ID - EDASI Lab Interpretation Abnormal (test code = 33761-4) [facility]:13:00 Test Item Value Reference Range Interpretation Comments Magnesium (test code = 1.9 mg/dL 1.6-2.6 06931-5) CAN (test code = CAN) Railcar Brake Operator ID - EDASI Lab Interpretation (test Normal code = 89531-8) [facility] Hospital[facility]OLIC [id number] 05:13:00 Test Item Value Reference Range Interpretation Comments SODIUM (BEAKER) 138 meq/L 136-145 (test code = 381) POTASSIUM (BEAKER) 4.2 meq/L 3.5-5.1 (test code = 379) CHLORIDE (BEAKER) 106 meq/L 98-107 (test code = 382) CO2 (BEAKER) (test 25 meq/L 22-29 code = 355) BLOOD UREA NITROGEN 20 mg/dL 7-21 (BEAKER) (test code = 354) CREATININE (BEAKER) 0.77 mg/dL 0.57-1.25 (test code = 358) GLUCOSE RANDOM 163 mg/dL 70-105 H (BEAKER) (test code = 652) CALCIUM (BEAKER) 9.2 mg/dL 8.4-10.2 (test code = 697) EGFR (BEAKER) (test 101 mL/min/1.73 ESTIM ATED GFR IS code = 1092) sq m NOT ACCURATE CREATININE CLEARANCE IN PREDICTING GLOMERULAR FILTRATION RATE . ESTIMATED GFR I S NOT APPLICABLE FOR DIALYSIS PATIEN TS. 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 IMPRESSION: Support Lines: None. Lungs and pleura: Unchanged airspace and pleural opacities. No pneumothorax.Heart and mediastinum: Stable contours. Additional findings: None. Signed: Soraida Arboledaepyfn Verified Date/Time: 09/23/2020 04:45:21 CBC with platelet count + automated diff 2020-09-23 04:36:00 Test Item Value Reference Range Interpretation Comments WBC (test code = 6690-2) 7.5 See_Comment [A utomated message] The system [employer] generated this result transmitted ref erence range: 3.5 - 10 .5 K/L. The refe rence range was not u sed to interpret this result as normal/abnor mal. RBC (test code = 789-8) 3.72 See_Comment L [Au tomated message] The system [employer] generated this result transmitted ref erence range: 4.63 - 6 .08 M/L. The refe rence range was not u sed to interpret this result as normal/abnor mal. MCHC (test code = 786-4) 32.0 See_Comment L [A utomated message] The system [employer] generated this result transmitted ref erence range: 32.3 - 3 6.5 GM/DL. The refe rence range was not u sed to interpret this result as normal/abnor mal. Hematocrit (test code = 34.4 % 40.1-51 L 4544-3) MCV (test code = 787-2) 92.5 fL 79-92.2 H MCH (test code = 785-6) 29.6 pg 25.7-32.2 RDW (test code = 788-0) 14.0 % 11.6-14.4 Platelets (test code = 181 See_Comment [Aut omated message] 777-3) The system [employer] generated this result transmitted ref erence range: 150 - 45 0 K/CU MM. The referen ce range was not u sed to interpret this result as normal/abnor mal. MPV (test code = 9.1 fL 9.4-12.4 L 08429-2) nRBC (test code = 413) 0 See_Comment [Aut omated message] The system [employer] generated this result transmitted ref erence range: 0 - 0 /1 00 WBC. The refere nce range was not u sed to interpret this result as normal/abnor mal. % Neutros (test code = 68 % 429) % Lymphs (test code = 22 % 430) % Monos (test code = 8 % 431) % Eos (test code = 432) 1 % % Baso (test code = 437) 1 % # Neutros (test code = 5.08 See_Comment [Aut omated message] 670) The system [employer] generated this result transmitted ref erence range: 1.78 - 5 .38 K/L. The refe rence range was not u sed to interpret this result as normal/abnor mal. # Lymphs (test code = 1.65 See_Comment [Auto mated message] 414) The system [employer] generated this result transmitted ref erence range: 1.32 - 3 .57 K/L. The refe rence range was not u sed to interpret this result as normal/abnor mal. # Monos (test code = 0.62 See_Comment [Autom ated message] 415) The system [employer] generated this result transmitted ref erence range: 0.30 - 0 .82 K/L. The refe rence range was not u sed to interpret this result as normal/abnor mal. # Eos (test code = 416) 0.10 See_Comment [Au tomated message] The system [employer] generated this result transmitted ref erence range: 0.04 - 0 .54 K/L. The refe rence range was not u sed to interpret this result as normal/abnor mal. # Baso (test code = 417) 0.04 See_Comment [A utomated message] The system [employer] generated this result transmitted ref erence range: 0.01 - 0 .08 K/L. The refe rence range was not u sed to interpret this result as normal/abnor mal. Immature 0 % 0-1 Granulocytes-Relative (test code = 2801) Lab Interpretation (test Abnormal code = 61000-9) [facility] W/PLT COUNT & AUTO [id number] 04:36:00 Test Item Value Reference Range Interpretation Comments WHITE BLOOD CELL COUNT (BEAKER) 7.5 K/ L 3.5-10.5 (test code = 775) RED BLOOD CELL COUNT (BEAKER) 3.72 M/ L 4.63-6.08 L (test code = 761) HEMOGLOBIN (BEAKER) (test code = 11.0 GM/DL 13.7-17.5 L 410) HEMATOCRIT (BEAKER) (test code = 34.4 % 40.1-51.0 L 411) MEAN CORPUSCULAR VOLUME (BEAKER) 92.5 fL 79.0-92.2 H (test code = 753) MEAN CORPUSCULAR HEMOGLOBIN 29.6 pg 25.7-32.2 (BEAKER) (test code = 751) MEAN CORPUSCULAR HEMOGLOBIN CONC 32.0 GM/DL 32.3-36.5 L (BEAKER) (test code = 752) RED CELL DISTRIBUTION WIDTH 14.0 % 11.6-14.4 (BEAKER) (test code = 412) PLATELET COUNT (BEAKER) (test 181 K/CU MM 150-450 code = 756) MEAN PLATELET VOLUME (BEAKER) 9.1 fL 9.4-12.4 L (test code = 754) NUCLEATED RED BLOOD CELLS 0 /100 WBC 0-0 (BEAKER) (test code = 413) NEUTROPHILS RELATIVE PERCENT 68 % (BEAKER) (test code = 429) LYMPHOCYTES RELATIVE PERCENT 22 % (BEAKER) (test code = 430) MONOCYTES RELATIVE PERCENT 8 % (BEAKER) (test code = 431) EOSINOPHILS RELATIVE PERCENT 1 % (BEAKER) (test code = 432) BASOPHILS RELATIVE PERCENT 1 % (BEAKER) (test code = 437) NEUTROPHILS ABSOLUTE COUNT 5.08 K/ L 1.78-5.38 (BEAKER) (test code = 670) LYMPHOCYTES ABSOLUTE COUNT 1.65 K/ L 1.32-3.57 (BEAKER) (test code = 414) MONOCYTES ABSOLUTE COUNT (BEAKER) 0.62 K/ L 0.30-0.82 (test code = 415) EOSINOPHILS ABSOLUTE COUNT 0.10 K/ L 0.04-0.54 (BEAKER) (test code = 416) BASOPHILS ABSOLUTE COUNT (BEAKER) 0.04 K/ L 0.01-0.08 (test code = 417) IMMATURE GRANULOCYTES-RELATIVE 0 % 0-1 PERCENT (BEAKER) (test code = 2801) POCT-GLUCOSE [id number] 00:03:00 Test Item Value Reference Range Interpretation Comments POC-GLUCOSE METER 144 mg/dL 70-110 H : TESTED A T [facility] 6720 (BEAKER) (test code = MIRTHA Mchugh [facility], 1538) 44000: Railcar Brake Operator/Techni elyse ID = [id number] for SAUMYA ALBERT POCT-GLUCOSE [id number] 16:18:00 Test Item Value Reference Range Interpretation Comments POC-GLUCOSE METER 93 mg/dL 70-110 : TESTED A T [facility] 6720 (CHAVA) (test code = MIRTHA Mchugh [facility], 1538) 95356: Railcar Brake Operator/Techni elyse ID = [id number] for Teresa Mark RAD, CHEST, 1 VIEW, NON [id number] 12:31:00Reason for exam:->s/p CHt removalShould this be performed at the bedside?->Yes [facility] 1955 Sex: MFINAL REPORT CLINICAL HISTORY: s/p CHt removal TECHNIQUE: 1 view of the chest. COMPARISON: 09/22/2020 IMPRESSION: The left chest tube has been removed. There is no pneumothorax. Bibasilar atelectasis is again seen. The small left pleural effusion has decreased. The cardiomediastinal silhouette is magnified by technique. Signed: He Rao Verified Date/Time: 09/22/2020 12:31:12 Reading Location: [facility] Radiology Reading Room POCT- GLUCOSE [id number] 11:44:00 Test Item Value Reference Range Interpretation Comments POC-GLUCOSE METER 213 mg/dL 70-110 H : TESTED A T [facility] 6720 (BEAKER) (test code = MIRTHA Mchugh [facility], 1538) 43160: Railcar Brake Operator/Techni elyse ID = [id number] for Jasmyne Santiago POCT-GLUCOSE [id number] 08:44:00 Test Item Value Reference Range Interpretation Comments POC-GLUCOSE METER 187 mg/dL 70-110 H : TESTED A T [facility] 6720 (BEAKER) (test code = MIRTHA Mchugh [facility], 1538) 17704: Railcar Brake Operator/Techni elyse ID = [id number] for Teresa Nelson Hemoglobin [id number] 08:07:00 Test Item Value Reference Range Interpretation Comments Hemoglobin A1C (test code = 4548-4) 7.6 % 4.3-6.1 H Lab Interpretation (test code = Abnormal 02435-0) [facility] [id number] 08:07:00 Test Item Value Reference Range Interpretation Comments HEMOGLOBIN A1C (CHAVA) (test code = 7.6 % 4.3-6.1 H 368) RAD, CHEST, 1 VIEW, NON [id number] 06:15:00Reason for exam:->s/p 1st rib resectionShould this be performed at the bedside?->Yes [facility] 1955 Sex: MFINAL REPORT RAD, CHEST, 1 VIEW, NON DEPT INDICATION: s/p 1st rib re section COMPARISON: Prior day's exam FINDINGS: Portable frontal view of the chest. IMPRESSION: Support Lines: No significant change. Lungs and pleura: Stable low lung volumes and unchanged airspace and pleural opacities. No pneumothorax.Heart and mediastinum: Stable contours. Additional findings: None. Signed: Asad Mathews MDReport Verified Date/Time: 09/22/2020 06:15:35 BASIC METABOLIC [id number] 05:39:00 Test Item Value Reference Range Interpretation Comments SODIUM (BEAKER) 138 meq/L 136-145 (test code = 381) POTASSIUM (BEAKER) 4.1 meq/L 3.5-5.1 (test code = 379) CHLORIDE (BEAKER) 104 meq/L 98-107 (test code = 382) CO2 (BEAKER) (test 27 meq/L 22-29 code = 355) BLOOD UREA NITROGEN 16 mg/dL 7-21 (BEAKER) (test code = 354) CREATININE (BEAKER) 0.80 mg/dL 0.57-1.25 (test code = 358) GLUCOSE RANDOM 164 mg/dL 70-105 H (BEAKER) (test code = 652) CALCIUM (BEAKER) 9.1 mg/dL 8.4-10.2 (test code = 697) EGFR (BEAKER) (test 97 mL/min/1.73 ESTIMA PO GFR IS code = 1092) sq m NOT ACCURATE CREATININE CLEARANCE IN PREDICTING GLOMERULAR FILTRATION RATE . ESTIMATED GFR I S NOT APPLICABLE FOR DIALYSIS PATIEN TS. Railcar Brake Operator ID - JEROMY [id number] 05:39:00 Test Item Value Reference Range Interpretation Comments MAGNESIUM (BEAKER) (test code = 2.2 mg/dL 1.6-2.6 627) Railcar Brake Operator ID - JEROMY [facility] W/PLT COUNT & AUTO [id number] 05:09:00 Test Item Value Reference Range Interpretation Comments WHITE BLOOD CELL COUNT (BEAKER) 10.6 K/ L 3.5-10.5 H (test code = 775) RED BLOOD CELL COUNT (BEAKER) 4.02 M/ L 4.63-6.08 L (test code = 761) HEMOGLOBIN (BEAKER) (test code = 11.9 GM/DL 13.7-17.5 L 410) HEMATOCRIT (BEAKER) (test code = 36.8 % 40.1-51.0 L 411) MEAN CORPUSCULAR VOLUME (BEAKER) 91.5 fL 79.0-92.2 (test code = 753) MEAN CORPUSCULAR HEMOGLOBIN 29.6 pg 25.7-32.2 (BEAKER) (test code = 751) MEAN CORPUSCULAR HEMOGLOBIN CONC 32.3 GM/DL 32.3-36.5 (BEAKER) (test code = 752) RED CELL DISTRIBUTION WIDTH 14.1 % 11.6-14.4 (BEAKER) (test code = 412) PLATELET COUNT (BEAKER) (test 204 K/CU MM 150-450 code = 756) MEAN PLATELET VOLUME (BEAKER) 9.3 fL 9.4-12.4 L (test code = 754) NUCLEATED RED BLOOD CELLS 0 /100 WBC 0-0 (BEAKER) (test code = 413) NEUTROPHILS RELATIVE PERCENT 73 % (BEAKER) (test code = 429) LYMPHOCYTES RELATIVE PERCENT 18 % (BEAKER) (test code = 430) MONOCYTES RELATIVE PERCENT 9 % (BEAKER) (test code = 431) EOSINOPHILS RELATIVE PERCENT 1 % (BEAKER) (test code = 432) BASOPHILS RELATIVE PERCENT 0 % (BEAKER) (test code = 437) NEUTROPHILS ABSOLUTE COUNT 7.67 K/ L 1.78-5.38 H (BEAKER) (test code = 670) LYMPHOCYTES ABSOLUTE COUNT 1.86 K/ L 1.32-3.57 (BEAKER) (test code = 414) MONOCYTES ABSOLUTE COUNT (BEAKER) 0.92 K/ L 0.30-0.82 H (test code = 415) EOSINOPHILS ABSOLUTE COUNT 0.06 K/ L 0.04-0.54 (BEAKER) (test code = 416) BASOPHILS ABSOLUTE COUNT (BEAKER) 0.03 K/ L 0.01-0.08 (test code = 417) IMMATURE GRANULOCYTES-RELATIVE 0 % 0-1 PERCENT (BEAKER) (test code = 2801) POCT-GLUCOSE [id number] 21:46:00 Test Item Value Reference Range Interpretation Comments POC-GLUCOSE METER 244 mg/dL 70-110 H : TESTED A T [facility] 6720 (BEAKER) (test code = MIRTHA [place], 1538) 61298: Railcar Brake Operator/Techni elyse ID = [id number] for UGabriel FRIEDMAN SAUMYA POCT-GLUCOSE [id number] 18:07:00 Test Item Value Reference Range Interpretation Comments POC-GLUCOSE METER 167 mg/dL 70-110 H : TESTED A T [facility] 6720 (BEAKER) (test code = [facility], 1538) 54045: Railcar Brake Operator/Techni elyse ID = [id number] for Ree d, Teresa POCT-GLUCOSE [id number] 17:09:00 Test Item Value Reference Range Interpretation Comments POC-GLUCOSE METER 154 mg/dL 70-110 H : TESTED A T [facility] 6720 (BEAKER) (test code = [facility], 1538) 14573: Railcar Brake Operator/Techni elyse ID = [id number] for OR DINARIO, JUAN JOSÉ POCT-GLUCOSE [id number] 12:34:00 Test Item Value Reference Range Interpretation Comments POC-GLUCOSE METER 131 mg/dL 70-110 H : TESTED A T [facility] 6720 (BEAKER) (test code = [facility], 1538) 15122: Railcar Brake Operator/Techni elyse ID = [id number] for OR DINARIO, JUAN JOSÉ POCT-GLUCOSE [id number] 11:23:00 Test Item Value Reference Range Interpretation Comments POC-GLUCOSE METER 146 mg/dL 70-110 H : TESTED A T [facility] 6720 (BEAKER) (test code = [facility], 1538) 07705: Railcar Brake Operator/Techni elyse ID = [id number] for Ree d, Teresa POCT-GLUCOSE [id number] 08:12:00 Test Item Value Reference Range Interpretation Comments POC-GLUCOSE METER 155 mg/dL 70-110 H : TESTED A T [facility] 6720 (BEAKER) (test code = [facility], 1538) 46214: Railcar Brake Operator/Techni elyse ID = [id number] for Ree d, Teresa RAD, CHEST, 1 VIEW, NON [id number] 07:30:00Reason for exam:->s/p 1st rib resectionShould this be performed at the bedside?->Yes [facility] 1955 Sex: MFINAL REPORT CLINICAL HISTORY: s/p 1st rib resection TECHNIQUE: 1 view of the chest. COMPARISON: 09/20/2020 IMPRESSION: A left apical chest tube is again seen with leftchest wall subcutaneous emphysema. There is no definitive evidence for pneumothorax. Bilateral lowerlung opacities are unchanged. A small left pleural effusion is again suspected. The cardiomediastinal silhouette is magnified by technique. Signed: He Rao [facility] Verified Date/Time: 09/21/2020 07:30:45 Reading Location: [facility] Radiology Reading Room BASIC METABOLIC [id number] 05:07:00 Test Item Value Reference Range Interpretation Comments SODIUM (BEAKER) 137 meq/L 136-145 (test code = 381) POTASSIUM (BEAKER) 4.5 meq/L 3.5-5.1 (test code = 379) CHLORIDE (BEAKER) 105 meq/L 98-107 (test code = 382) CO2 (BEAKER) (test 24 meq/L 22-29 code = 355) BLOOD UREA NITROGEN 17 mg/dL 7-21 (BEAKER) (test code = 354) CREATININE (BEAKER) 0.73 mg/dL 0.57-1.25 (test code = 358) GLUCOSE RANDOM 172 mg/dL 70-105 H (BEAKER) (test code = 652) CALCIUM (BEAKER) 8.8 mg/dL 8.4-10.2 (test code = 697) EGFR (BEAKER) (test 107 mL/min/1.73 ESTIM ATED GFR IS code = 1092) sq m NOT ACCURATE CREATININE CLEARANCE IN PREDICTING GLOMERULAR FILTRATION RATE . ESTIMATED GFR I S NOT APPLICABLE FOR DIALYSIS PATIEN TS. Railcar Brake Operator ID - [id number] 05:07:00 Test Item Value Reference Range Interpretation Comments MAGNESIUM (BEAKER) (test code = 2.0 mg/dL 1.6-2.6 627) Railcar Brake Operator ID - EDASIPT/[id number] 04:37:00 Test Item Value Reference Interpretation Comments Range Protime (test code = 14.1 See_Comment [Autom ated 5902-2) message] The system which generated this result transmitted reference range : 11.9 - 14.2 seconds. The reference range was not used to interpret this result as normal/abnormal . INR (test code = 1.12 See_Comment [Automated 1170-6) message] The system which generated this result transmitted reference range : <=5.90. The reference range was not used to interpret this result as normal/abnormal . PTT (test code = 36.4 See_Comment H [Automated 69594-4) message] The system which generated this result transmitted reference range : 22.5 - 36.0 seconds. The reference range was not used to interpret this result as normal/abnormal . CAN (test code = Effective 04/01/2019: CAN) PT Reference Range ChangeNew: 11.9-14.2 Previous: 11.7-14.7 RECOMMENDED COUMADIN/WARFARIN INR THERAPY RANGESSTANDARD DOSE: 2.0-3.0 Includes: PROPHYLAXIS for venous thrombosis, systemic embolization; TREATMENT for venous thrombosis and/or pulmonary embolus.HIGH RISK: Target INR is 2.5-3.5 for patients wiht mechanical heart valves. Lab Interpretation Abnormal (test code = 03991-2) [facility][id number] 04:37:00 Test Item Value Reference Range Interpretation Comments PROTIME (BEAKER) (test code = 14.1 seconds 11.9-14.2 759) INR (BEAKER) (test code = 370) 1.12 <=5.90 PARTIAL THROMBOPLASTIN TIME 36.4 seconds 22.5-36.0 H (BEAKER) (test code = 760) Effective 04/01/2019: PT Reference Range ChangeNew: 11.9-14.2 Previous: 11.7- 14.7RECOMMENDED COUMADIN/WARFARIN INR THERAPY RANGESSTANDARD DOSE: 2.0-3.0 Includes: PROPHYLAXIS for venous thrombosis, systemic embolization; TREATMENT for venous thrombosis and/or pulmonary embolus.HIGH RISK: Target INR is2.5-3.5 for patients wiht mechanical heart valves.CBC W/PLT COUNT & AUTO [id number] 04:31:00 Test Item Value Reference Range Interpretation Comments WHITE BLOOD CELL COUNT (BEAKER) 10.1 K/ L 3.5-10.5 (test code = 775) RED BLOOD CELL COUNT (BEAKER) 3.91 M/ L 4.63-6.08 L (test code = 761) HEMOGLOBIN (BEAKER) (test code = 11.5 GM/DL 13.7-17.5 L 410) HEMATOCRIT (BEAKER) (test code = 35.7 % 40.1-51.0 L 411) MEAN CORPUSCULAR VOLUME (BEAKER) 91.3 fL 79.0-92.2 (test code = 753) MEAN CORPUSCULAR HEMOGLOBIN 29.4 pg 25.7-32.2 (BEAKER) (test code = 751) MEAN CORPUSCULAR HEMOGLOBIN CONC 32.2 GM/DL 32.3-36.5 L (BEAKER) (test code = 752) RED CELL DISTRIBUTION WIDTH 13.8 % 11.6-14.4 (BEAKER) (test code = 412) PLATELET COUNT (BEAKER) (test 186 K/CU MM 150-450 code = 756) MEAN PLATELET VOLUME (BEAKER) 9.2 fL 9.4-12.4 L (test code = 754) NUCLEATED RED BLOOD CELLS 0 /100 WBC 0-0 (BEAKER) (test code = 413) NEUTROPHILS RELATIVE PERCENT 77 % (BEAKER) (test code = 429) LYMPHOCYTES RELATIVE PERCENT 14 % (BEAKER) (test code = 430) MONOCYTES RELATIVE PERCENT 8 % (BEAKER) (test code = 431) EOSINOPHILS RELATIVE PERCENT 0 % (BEAKER) (test code = 432) BASOPHILS RELATIVE PERCENT 0 % (BEAKER) (test code = 437) NEUTROPHILS ABSOLUTE COUNT 7.78 K/ L 1.78-5.38 H (BEAKER) (test code = 670) LYMPHOCYTES ABSOLUTE COUNT 1.45 K/ L 1.32-3.57 (BEAKER) (test code = 414) MONOCYTES ABSOLUTE COUNT (BEAKER) 0.80 K/ L 0.30-0.82 (test code = 415) EOSINOPHILS ABSOLUTE COUNT 0.01 K/ L 0.04-0.54 L (BEAKER) (test code = 416) BASOPHILS ABSOLUTE COUNT (BEAKER) 0.03 K/ L 0.01-0.08 (test code = 417) IMMATURE GRANULOCYTES-RELATIVE 0 % 0-1 PERCENT (BEAKER) (test code = 2801) POCT-GLUCOSE [id number] 22:19:00 Test Item Value Reference Range Interpretation Comments POC-GLUCOSE METER 223 mg/dL 70-110 H : TESTED A T [facility] 6720 (BEAKER) (test code = MIRTHA Mchugh [place], 1538) 75742: Railcar Brake Operator/Techni elyse ID = [id number] for SAUMYA ALBERT [id number] 16:36:00 Test Item Value Reference Range Interpretation Comments Phosphorus (test code = 3.1 mg/dL 2.3-4.7 2777-1) CAN (test code = CAN) Railcar Brake Operator ID - BS Lab Interpretation (test Normal code = 24080-8) [facility] [id number] 16:36:00 Test Item Value Reference Range Interpretation Comments SODIUM (BEAKER) 139 meq/L 136-145 (test code = 381) POTASSIUM (BEAKER) 4.4 meq/L 3.5-5.1 (test code = 379) CHLORIDE (BEAKER) 107 meq/L 98-107 (test code = 382) CO2 (BEAKER) (test 23 meq/L 22-29 code = 355) BLOOD UREA NITROGEN 20 mg/dL 7-21 (BEAKER) (test code = 354) CREATININE (BEAKER) 0.86 mg/dL 0.57-1.25 (test code = 358) GLUCOSE RANDOM 219 mg/dL 70-105 H (BEAKER) (test code = 652) CALCIUM (BEAKER) 9.4 mg/dL 8.4-10.2 (test code = 697) EGFR (BEAKER) (test 89 mL/min/1.73 ESTIMA PO GFR IS code = 1092) sq m NOT ACCURATE CREATININE CLEARANCE IN PREDICTING GLOMERULAR FILTRATION RATE . ESTIMATED GFR I S NOT APPLICABLE FOR DIALYSIS PATIEN TS. Railcar Brake Operator ID - [id number] 16:36:00 Test Item Value Reference Range Interpretation Comments MAGNESIUM (BEAKER) (test code = 1.7 mg/dL 1.6-2.6 627) Railcar Brake Operator ID - [id number] 16:36:00 Test Item Value Reference Range Interpretation Comments PHOSPHORUS (BEAKER) (test code = 3.1 mg/dL 2.3-4.7 604) Railcar Brake Operator ID - BSRAD, CHEST, 1 VIEW, NON [id number] 16:35:00Reason for exam:- >s/p 1st rib resectionShould this be performed at the bedside?->Yes [facility] 1955 Sex: MFINAL REPORT Chest dated 09/20/2020 COMPARISON: September 16, 2020 C linical Information: s/p 1st rib resection Comment: Since prior examination, there is interval resection of the left first rib. Subcutaneous air is seen in the left supraclavicular region. Heart is enlarged. Pulmonary vasculature is unremarkable. Subsegmental atelectasis is seen in both lower lobes. No pneumothorax is present. Left chest tube seen. IMPRESSION: Interval resection of the left first ribwith bibasilar subsegmental atelectasis. Signed: Debbie [place] Verified Date/Time: 09/20/2020 16:35:10 Reading Location: [facility] [id number] Consult Reading Room PT/[id number] 16:22:00 Test Item Value Reference Range Interpretation Comments PROTIME (BEAKER) (test code = 13.9 seconds 11.9-14.2 759) INR (BEAKER) (test code = 370) 1.10 <=5.90 PARTIAL THROMBOPLASTIN TIME 28.1 seconds 22.5-36.0 (BEAKER) (test code = 760) Effective 04/01/2019: PT Reference Range ChangeNew: 11.9-14.2 Previous: 11.7- 14.7RECOMMENDED COUMADIN/WARFARIN INR THERAPY RANGESSTANDARD DOSE: 2.0-3.0 Includes: PROPHYLAXIS for venous thrombosis, systemic embolization; TREATMENT for venous thrombosis and/or pulmonary embolus.HIGH RISK: Target INR is2.5-3.5 for patients wiht mechanical heart valves.CBC (Hemogram only)2020-09-20 16:15:00 Test Item Value Reference Range Interpretation Comments WBC (test code = 6690-2) 9.3 See_Comment [A utomated message] The system [employer] generated this result transmitted ref erence range: 3.5 - 10 .5 K/L. The refe rence range was not u sed to interpret this result as normal/abnor mal. RBC (test code = 789-8) 3.86 See_Comment L [Au tomated message] The system [employer] generated this result transmitted ref erence range: 4.63 - 6 .08 M/L. The refe rence range was not u sed to interpret this result as normal/abnor mal. MCHC (test code = 786-4) 32.6 See_Comment L [A utomated message] The system [employer] generated this result transmitted ref erence range: 32.3 - 3 6.5 GM/DL. The refe rence range was not u sed to interpret this result as normal/abnor mal. Hematocrit (test code = 35.0 % 40.1-51 L 4544-3) MCV (test code = 787-2) 90.7 fL 79-92.2 MCH (test code = 785-6) 29.5 pg 25.7-32.2 RDW (test code = 788-0) 13.5 % 11.6-14.4 Platelets (test code = 173 See_Comment [Aut omated message] 027-3) The system [employer] generated this result transmitted ref erence range: 150 - 45 0 K/CU MM. The referen ce range was not u sed to interpret this result as normal/abnor mal. MPV (test code = 8.8 fL 9.4-12.4 L 83349-9) nRBC (test code = 413) 0 See_Comment [Aut omated message] The system [employer] generated this result transmitted ref erence range: 0 - 0 /1 00 WBC. The refere nce range was not u sed to interpret this result as normal/abnor mal. Lab Interpretation (test Abnormal code = 07511-8) [facility] (HEMOGRAM ONLY)2020-09-20 16:15:00 Test Item Value Reference Range Interpretation Comments WHITE BLOOD CELL COUNT (BEAKER) 9.3 K/ L 3.5-10.5 (test code = 775) RED BLOOD CELL COUNT (BEAKER) 3.86 M/ L 4.63-6.08 L (test code = 761) HEMOGLOBIN (BEAKER) (test code = 11.4 GM/DL 13.7-17.5 L 410) HEMATOCRIT (BEAKER) (test code = 35.0 % 40.1-51.0 L 411) MEAN CORPUSCULAR VOLUME (BEAKER) 90.7 fL 79.0-92.2 (test code = 753) MEAN CORPUSCULAR HEMOGLOBIN 29.5 pg 25.7-32.2 (BEAKER) (test code = 751) MEAN CORPUSCULAR HEMOGLOBIN CONC 32.6 GM/DL 32.3-36.5 (BEAKER) (test code = 752) RED CELL DISTRIBUTION WIDTH 13.5 % 11.6-14.4 (BEAKER) (test code = 412) PLATELET COUNT (BEAKER) (test 173 K/CU MM 150-450 code = 756) MEAN PLATELET VOLUME (BEAKER) 8.8 fL 9.4-12.4 L (test code = 754) NUCLEATED RED BLOOD CELLS 0 /100 WBC 0-0 (BEAKER) (test code = 413) Calcium, [id number] 13:54:00 Test Item Value Reference Range Interpretation Comments Calcium, Ion (test code = 1993-) 1.11 mmol/L 1.12-1.27 L pH, Blood (test code = 56946-8) 7.35 Lab Interpretation (test code = Abnormal 93761-5) [facility] [id number] 13:54:00 Test Item Value Reference Range Interpretation Comments Hemoglobin (test code = 12.5 See_Comment L [Au tomated message] 786-4) The system [employer] generated this result transmitted ref erence range: 13.0 - 1 6.8 GM/DL. The refe rence range was not u sed to interpret this result as normal/abnor mal. Hematocrit (test code = 37.0 % 40-50 L 4544-3) Lab Interpretation (test Abnormal code = 93694-4) [facility]ucose[facility]Stat [id number] 13:54:00 Test Item Value Reference Range Interpretation Comments Glucose (test code = 2345-7) 177 mg/dL 70-110 H Lab Interpretation (test code = Abnormal 21444-9) [facility] HospitalBLOOD GAS, [id number] 13:54:00 Test Item Value Reference Range Interpretation Comments PH ARTERIAL (BEAKER) (test code = 7.38 7.35-7.45 383) PCO2 ARTERIAL (BEAKER) (test code 40 mm Hg 35-45 = 384) PO2 ARTERIAL (BEAKER) (test code 90 mm Hg 80-90 = 385) O2 SATURATION ARTERIAL (BEAKER) 97.3 % 96.0-97.0 H (test code = 386) HCO3 ARTERIAL (BEAKER) (test code 23 mmol/L 21-29 = 388) BASE EXCESS ARTERIAL (BEAKER) -2.4 mmol/L -2.0-3.0 L (test code = 387) PATIENT TEMPERATURE (BEAKER) 34.9 (test code = 1818) FIO2 (BEAKER) (test code = 1819) 100.0 GLUCOSE-STAT [id number] 13:54:00 Test Item Value Reference Range Interpretation Comments GLUCOSE RANDOM (BEAKER) (test code 177 mg/dL 70-110 H = 652) HGB/HCT (H&H) - STAT [id number] 13:54:00 Test Item Value Reference Range Interpretation Comments HEMOGLOBIN (BEAKER) (test code = 12.5 GM/DL 13.0-16.8 L 410) HEMATOCRIT (BEAKER) (test code = 37.0 % 40.0-50.0 L 411) CALCIUM, [id number] 13:54:00 Test Item Value Reference Range Interpretation Comments CALCIUM IONIZED (BEAKER) (test 1.11 mmol/L 1.12-1.27 L code = 698) PH, BLOOD (BEAKER) (test code = 7.35 1810) Sodium Na-Stat [id number] 13:53:00 Test Item Value Reference Range Interpretation Comments Sodium (test code = 2951-2) 138 meq/L 136-145 Lab Interpretation (test code = Normal 92045-5) [facility] [id number] 13:53:00 Test Item Value Reference Range Interpretation Comments Potassium (test code = 2823-3) 4.0 meq/L 3.6-5.5 Lab Interpretation (test code = Normal 41322-9) [facility] [id number] 13:53:00 Test Item Value Reference Range Interpretation Comments SODIUM (BEAKER) (test code = 381) 138 meq/L 136-145 POTASSIUM-STAT [id number] 13:53:00 Test Item Value Reference Range Interpretation Comments POTASSIUM (BEAKER) (test code = 4.0 meq/L 3.6-5.5 379) POCT-GLUCOSE [id number] 09:25:00 Test Item Value Reference Range Interpretation Comments POC-GLUCOSE METER 145 mg/dL 70-110 H : TESTED A T 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 KUSHAL PERFORMING LAB (test code = 83758-8) CAN (test code = Negative result for this CAN) test determines that SARS-CoV-2 RNA was not present in the specimen above the Limit of Detection (LOD). However, Negative results do not preclude SARS-CoV-2 infection and should not be used as the sole basis for treatment or patient management decisions. Negative results must be combined with clinical observations, patient history, and epidemiological information. A false negative result may occur if a specimen is improperly collected, transported or handled. A false negative result should be considered if patient's recent exposures or clinical presentation indicate that COVID-19 (SARS-CoV-2) is likely and diagnostic tests for other causes of illness are negative. Re-testing should be considered in cases of suspected false negatives. The limit of detection for this assay is 100 copies/mL. This SARS CoV-2 test is a real-time RT-PCR test intended for the qualitative detection of nucleic acid from SARS-CoV-2 in a nasopharyngeal swab specimen collected from individuals suspected of COVID-19 by their healthcare provider. This test has not been Food and Drug Administration (FDA) cleared or approved. This is a modified version of an approved Emergency Use Authorization (EUA) and is in the process of review by the FDA. Once authorized by the FDA, the issued EUA will be effective until the declaration that circumstances exist justifying the authorization of the emergency use of in vitro diagnostic tests for detection and/or diagnosis of COVID-19 is terminated under Section 564(b)(2) of the Act or the EUA is revoked under Section 564(g) of the Act. Testing was performed using the Judd SARS-CoV-2 assay. Fact Sheet for Healthcare Providers:https://www.[employer]/ramirez/RT_SA CX-HnD-6_BQC_Cqxu_Erxtk_ 51-543519.pdf Fact Sheet for Healthcare Patients:https://www.[facility] [employer]/ramirez/RT_SAR X-FcO-0_Gyntmuz_Ihpo_Uyq et_EN_51-472160L1.pdf Performing Laboratory:[facility] [place] [address] [facility]ARS[facility]OV2/[facility]-PCR ([facility])2020-09-17 07:52:00 Test Item Value Reference Range Interpretation Comments SARS-COV2/RT-PCR (test Negative Not Detected, Negative, code = 3362751) See external report for linked test SARS-COV-[address] [facility] KUSHAL (test code = 5548589) Negative result for this test determines that SARS-CoV-2 RNA was not present in the specimen above the Limit of Detection (LOD). However, Negative results do not preclude SARS-CoV-2 infection and should not be used as the sole basis for treatment or patient management decisions. Negative results mustbe combined with clinical observations, patient history, and epidemiological information. A false negative result may occur if a specimen is improperly collected, transported or handled. A false negative result should be considered if patient's recent exposures or clinical presentation indicate that COVID-19 (SARS-CoV-2) is likely and diagnostic tests for other causes of illness are negative. Re-testing should be considered in cases of suspected false negatives.The limit of detection for this assay is 100 copies/mL.This SARS CoV-2 test is a real-time RT-PCR test intended for the qualitative detection of nucleic acid from SARS-CoV-2 in a nasopharyngeal swab specimen collected from individuals susp ected of COVID-19 by their healthcare provider.This test has not been Food and Drug Administration (FDA) cleared or approved. This is a modified version of an approved Emergency Use Authorization (EUA) and is in the process of review by the FDA. Once authorized by the FDA, the issued EUA will be effective until the declaration that circumstances exist justifying the authorization of the emergency use of in vitro diagnostic tests for detection and/or diagnosis of COVID-19 is terminated under Section 564(b)(2) of the Act or the EUA is revoked under Section 564(g) of the Act.Testing was performed using the Judd SARS-CoV-2 assay.Fact Sheet for Healthcare Providers:https://www.molecular.judd/ramirez/ ZG_SHLN-QkX-7_NXW_Cfvy_Nxqsa_79-794426.pdfFact Sheet for Healthcare Patients:https://www.molecular.ab kailey/ramirez/ZR_FVLS-GjW-7_Kudubos_Kzhl_Wruct_VH_04-750159Z1.pdfPerforming Laboratory:[address] [place] [address] Type and screen, [id number] 17:08:00 Test Item Value Reference Range Interpretation Comments ABO/RH AUTOMATED (BEAKER) (test A POSITIVE code = 2260) Ab Scrn (test code = 890-4) NEGATIVE [facility] HospitalElectrocardiogram, [id number] 16:59:59 Interface, External Ris In - 09/16/2020 5:00 PM CSTVentricular Rate 52 BPMAtrial Rate 52 BPMP-R Interval 168 msQRS Duration 92 msQ-T Interval 430 msQTC Calculation(Bazett) 399 msP [place] 14 degreesR [place] 54 degreesT [place] -3 degreesSinus bradycardiaPossible Inferior infarct , age undeterminedAbnormal ECG When compared with ECG of 04-JUL-2018 11:17,Borderline criteria for Inferior infarct are now PresentNon-specific change in ST segment in Inferior leadsT wave inversion now evident in Inferior leadsConfirmed by MD Holt Roberto ([id number]) on 09/16/2020 4:59:57 [facility]Com[facility] [id number] 16:28:00 Test Item Value Reference Range Interpretation Comments Protein, Total (test 7.1 See_Comment [Autom ated code = 2885-2) message] The system which generated this result transmit po reference range : 6.0 - 8.3 gm/dL . The reference range was not u sed to interpret th is result as normal/abnormal . Albumin (test code = 4.3 g/dL 3.5-5 49856-8) Alkaline Phosphatase 58 U/L 40-150 (test code = 6768-6) Total Bilirubin (test 0.3 mg/dL 0.2-1.2 code = 1975-2) Sodium (test code = 140 meq/L 767-130 8632-2) Potassium (test code 4.3 meq/L 3.5-5.1 = 2823-3) Chloride (test code = 103 meq/L 98-107 5-0) CO2 (test code = 30 meq/L 22-29 H 2027-9) BUN (test code = 25 mg/dL 7-21 H 3094-0) Creatinine (test code 0.86 mg/dL 0.57-1.25 = 2160-0) Glucose (test code = 67 mg/dL 70-105 L 2345-7) Calcium (test code = 10.0 mg/dL 8.4-10.2 16617-1) AST (test code = 28 U/L 5-34 1920-8) ALT (test code = 23 U/L 6-55 1742-6) EGFR (test code = 89 mL/min/1.73 [place] [address]-2) NOT ACCURATE CREATININE CLEARANCE IN PREDICTING GLOMERULAR FILTRATION RATE . ESTIMATED GFR I S NOT APPLICABLE FOR DIALYSIS PATIEN TS. 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 Lab Interpretation Abnormal (test code = 30085-4) [facility] HospitalCOMPREHENSIVE METABOLIC [id number] 16:28:00 Test Item Value Reference Range Interpretation Comments TOTAL PROTEIN 7.1 gm/dL 6.0-8.3 (BEAKER) (test code = 770) ALBUMIN (BEAKER) 4.3 g/dL 3.5-5.0 (test code = 1145) ALKALINE PHOSPHATASE 58 U/L 40-150 (BEAKER) (test code = 346) BILIRUBIN TOTAL 0.3 mg/dL 0.2-1.2 (BEAKER) (test code = 377) SODIUM (BEAKER) (test 140 meq/L 136-145 code = 381) POTASSIUM (BEAKER) 4.3 meq/L 3.5-5.1 (test code = 379) CHLORIDE (BEAKER) 103 meq/L 98-107 (test code = 382) CO2 (BEAKER) (test 30 meq/L 22-29 H code = 355) BLOOD UREA NITROGEN 25 mg/dL 7-21 H (BEAKER) (test code = 354) CREATININE (BEAKER) 0.86 mg/dL 0.57-1.25 (test code = 358) GLUCOSE RANDOM 67 mg/dL 70-105 L (BEAKER) (test code = 652) CALCIUM (BEAKER) 10.0 mg/dL 8.4-10.2 (test code = 697) AST (SGOT) (BEAKER) 28 U/L 5-34 (test code = 353) ALT (SGPT) (BEAKER) 23 U/L 6-55 (test code = 347) EGFR (BEAKER) (test 89 mL/min/1.73 ESTIMA PO GFR IS code = 1092) sq m NOT ACCURATE CREATININE CLEARANCE IN PREDICTING GLOMERULAR FILTRATION RATE . ESTIMATED GFR I S NOT APPLICABLE FOR DIALYSIS PATIEN TS. Railcar Brake Operator ID - ADMINPT/[id number] 16:24:00 Test Item Value Reference Range Interpretation Comments PROTIME (BEAKER) (test code = 13.3 seconds 11.9-14.2 759) INR (BEAKER) (test code = 370) 1.04 <=5.90 PARTIAL THROMBOPLASTIN TIME 30.3 seconds 22.5-36.0 (BEAKER) (test code = 760) Effective 04/01/2019: PT Reference Range ChangeNew: 11.9-14.2 Previous: 11.7- 14.7RECOMMENDED COUMADIN/WARFARIN INR THERAPY RANGESSTANDARD DOSE: 2.0-3.0 Includes: PROPHYLAXIS for venous thrombosis, systemic embolization; TREATMENT for venous thrombosis and/or pulmonary embolus.HIGH RISK: Target INR is2.5-3.5 for patients wiht mechanical heart valves.CBC W/PLT COUNT & AUTO [id number] 16:14:00 Test Item Value Reference Range Interpretation Comments WHITE BLOOD CELL COUNT (BEAKER) 7.4 K/ L 3.5-10.5 (test code = 775) RED BLOOD CELL COUNT (BEAKER) 4.64 M/ L 4.63-6.08 (test code = 761) HEMOGLOBIN (BEAKER) (test code = 13.4 GM/DL 13.7-17.5 L 410) HEMATOCRIT (BEAKER) (test code = 43.4 % 40.1-51.0 411) MEAN CORPUSCULAR VOLUME (BEAKER) 93.5 fL 79.0-92.2 H (test code = 753) MEAN CORPUSCULAR HEMOGLOBIN 28.9 pg 25.7-32.2 (BEAKER) (test code = 751) MEAN CORPUSCULAR HEMOGLOBIN CONC 30.9 GM/DL 32.3-36.5 L (BEAKER) (test code = 752) RED CELL DISTRIBUTION WIDTH 13.7 % 11.6-14.4 (BEAKER) (test code = 412) PLATELET COUNT (BEAKER) (test 235 K/CU MM 150-450 code = 756) MEAN PLATELET VOLUME (BEAKER) 9.5 fL 9.4-12.4 (test code = 754) NUCLEATED RED BLOOD CELLS 0 /100 WBC 0-0 (BEAKER) (test code = 413) NEUTROPHILS RELATIVE PERCENT 55 % (BEAKER) (test code = 429) LYMPHOCYTES RELATIVE PERCENT 32 % (BEAKER) (test code = 430) MONOCYTES RELATIVE PERCENT 10 % (BEAKER) (test code = 431) EOSINOPHILS RELATIVE PERCENT 2 % (BEAKER) (test code = 432) BASOPHILS RELATIVE PERCENT 1 % (BEAKER) (test code = 437) NEUTROPHILS ABSOLUTE COUNT 4.05 K/ L 1.78-5.38 (BEAKER) (test code = 670) LYMPHOCYTES ABSOLUTE COUNT 2.37 K/ L 1.32-3.57 (BEAKER) (test code = 414) MONOCYTES ABSOLUTE COUNT (BEAKER) 0.72 K/ L 0.30-0.82 (test code = 415) EOSINOPHILS ABSOLUTE COUNT 0.15 K/ L 0.04-0.54 (BEAKER) (test code = 416) BASOPHILS ABSOLUTE COUNT (BEAKER) 0.06 K/ L 0.01-0.08 (test code = 417) IMMATURE GRANULOCYTES-RELATIVE 0 % 0-1 PERCENT (BEAKER) (test code = 2801) RAD, CHEST, 2 [id number] 14:19:00Reason for exam:->pre-op evaluation Should this be performed at the bedside?->Yes [facility] : 1955 Sex: MFINAL REPORT INDICATION: pre-op evaluation COMPARISON: None TECHNIQUE: Frontal and lateral views of the chest. FINDINGS: Lungs and pleura: Clear lungs. No effusion.Heart and mediastinum: Normal heart size. Unremarkable mediastinal contours.Osseous structures: No acute abnormality.Additional findings: None. IMPRESSION: No acute intrathoracic abnormality. Signed: Nemo Dubon MDRdheerajort Verified Date/Time: 09/16/2020 14:19:11 Reading Location: [facility] Radiology Reading Room URINE AND [id number] 23:21:00Yellow *NA*(10/22/19 5:21 PM)[facility] [id number] 23:21:00Clear *NA*(10/22/19 5:21 PM)[facility] [id number] 23:21:00 Test Item Value Reference Range Interpretation Comments POC UA SG (test code = POC UA SG) 1.015 1 [facility] [id number] 23:21:00 Test Item Value Reference Range Interpretation Comments POC UA pH (test code = POC UA pH) 5.0 1 5.0-8.0 [facility] [id number] 23:21:00Negative *NA*(10/22/19 5:21 PM)[facility] [id number] 23:21:00Small *ABN*(10/22/19 5:21 PM)[facility] [id number] 23:21:000.2[facility] [id number] 23:21:00Negative *NA*(10/22/19 5:21 PM)[facility] [id number] 23:21:00Negative *NA*(10/22/19 5:21 PM)[facility], WITH IV [id number] 11:23:00Addendum BeginsREPORT STATUS:A RADIATION DOSE: Total DLP: 516.87 mGy*cm Estimated effective dose: (DLP x 0.014 x size factor) mSv CTDIvol has been reviewed. It is below the limits set by the Radiation Protocol Committee (RPC). Dose modulation, iterative reconstruction, and/or weight based adjustment of the mA/kV was utilized to reduce the radiation dose to as low as reasonably achievable. Signed: Del Rosario, Damaso MDReport Verified Date/Time: 02/25/2019 11:23:17 Addendum EndsFINAL [...] x size factor) mSv CTDIvol has been reviewed.It is below the limits set by the Radiation Protocol Committee (RPC). FINDINGS: Lines and Tubes: None. Lower Neck: No acute findings. Heart and Great Vessels: The aorta and main pulmonary artery measure 32 and 25 mm. respectively. Trace amount of pericardial fluid statistically physiologic. Mild vascular calcifications. Lymph Nodes: No suspicious mediastinal or hilar adenopathy. Left axillary andsubpectoral lymph nodes are enlarged, with largest subpectoral [...] are essentially unchanged Left axillary and subpectoral adenopathy.This is essentially unchanged Signed: Damaso Del Rosario MDReport Verified Date/Time: 02/25/2019 10:51:51 [id number] 15:46:00 Test Item Value Reference Range Interpretation Comments POC-CREATININE 1.0 mg/dL 0.6-1.3 TESTED AT [facility] 7200 (CHAVA) (test YANELY BLD G A code = 1859) [facility] 7703 0 POC-EGFR 75 mL/min/1.73M2 (CHAVA) (test code = 1860) MM, U/S, BIOPSY, BREAST, [id number] 17:45:00Reason for Exam:->R59.1 Addendum [facility]#: [id number]: 01/26/2019 Sb Baron M.D. Pathology results are now available and are copied below: LYMPH NODE, AXILLA, LEFT, CORE BIOPSY:-REACTIVE FOLLICULAR HYPERPLASIA-NO EVIDENCE OF LYMPHOMA-SEE COMMENT COMMENTHistologic evaluation of the left axillary lymph nodecore biopsy primarily demonstrates benign features. No mass lesions or granuloma identified. Immunohistochemical stain evaluation and corresponding flow cytometric analysis([id number]) did NOT demonstrate evidence of a neoplastic B or T lymphocyte process on this sample. Overall findings are consistent with reactive follicular hyperplasia. Clinical correlation is recommended. Addendum [facility]#: [id number] - MM, U/S, BIOPSY, BREAST, LEFTULTRASOUND GUIDED [...] under ultrasound guidance. Once the needle was docu mented to be in the correct location, a total of five passes were made using a 14 gauge no throw biopsy needle. Hemostasis was achieved with manual compression. Skin closure strips and a sterile dressing were applied to the access site. The specimens were sent to the laboratory for pathological theron sis. There were no immediate complications. IMPRESSION: ULTRASOUND GUIDED BIOPSYUltrasound guided biopsy of the lymph node in the left axilla was successful with no apparent post procedure complications. Pathology is pending. Sb Baron M.D. ds/:01/21/2019 11:49:18 Measurer Machine: Opal Duff Carpenter Helper Maintenance, [facility] 96930QE TISSUE [id number] 14:23:00Surgical Pathology Report Case: [id number] Authorizing Provider: Sb Baron, Collected: 01/21/2019 Iraj MORALES OrderingLocation: [facility] Received: 01/21/2019 1240 Pathologist: Dominick De La O MD Specimen: Axilla, Left LYMPH NODE, AXILLA, LEFT, CORE BIOPSY:-REACTIVE FOLLICULAR HYPERPLASIA-NO EVIDENCE OF LYMPHOMA-SEE COMMENT Signing Pathologist Direct Phone Line: [phone] signed by Dominick De La O MD on 01/24/2019 at 2:23 PMHistologic evaluation of the left axillary lymph node core biopsy primarily demonstrates benign features. No mass lesions or granuloma identified. Immunohistochemical stain evaluation and corresponding flow cytometric analysis([id number]) did NOT demonstrate evidence of a neoplastic B or T lymphocyte process on this sample. Overall findings are consistent with reactive follicular hyperplasia. Clinical correlation is recommended. [id number] x1; 59480 x8Left axillary lymph node biopsyLeft axi llary lymph node biopsyThe specimen is received in a formalin-filled container [...] smalllymphocytes and small number of large cells (immunoblasts) admixed. Histiocytes noted in some sinuses.Immunohistochemical stains, with adequate controls, are performed on block A1 for CD3, PAX-5, BCL-2. BCL-6, CD10, CD30, CD23, [place], Lambda . Germinal centers are positive for PAX-5, BCL-6 and CD10. II76khbvuxkoyl follicular dendritic cells meshworks of follicles. The interfollicular areas are T cell predominant and highlighted by CD3 and BCL2. CD30 demonstrates rare immunoblasts. [place] and Lambda demonstrate few polyclonal plasma cells present. Overall findings are consistent with reactive follicular hyperplasia. The interpretation of this case included the use of immunohistochemistry or special stains. Immunohistochemistry technical testing was performed at [facility], Pathology Laboratory where it was developed [...] certified under the Clinical Laboratory Improvement Amendments mb4823 (CLIA-88) as qualified to perform high complexity clinical laboratory testing.The immunohistochemistry test was developed and its performance characteristics determined by [facility], Pathology Laboratory. It has not been cleared [...] evaluated:CD3, PAX-5, BCL-2. BCL-6, CD10, CD30, CD23, [place], LambdaFLOW CYTOMETRY [id number] 13:09:00 Test Item Value Reference Range Interpretation Comments FLOW CYTOMETRY RESULT See Separate Report POINTER (CHAVA) (test code = 2758) FLOW CYTOMETRY AP CASE # [id number] (CHAVA) (test code = 2759) FLOW [id number] 10:20:00Flow Cytometry Report Case: [id number] Authorizing Provider: Sb Baron, Collected: 01/21/2019 0955 [facility] Received: 01/21/2019 1139 Pathologist: Dominick De La O MD Specimen: Other LYMPH NODE, AXILLARY, LEFT, US GUIDED BIOPSY, FLOW CYTOMETRY:-NO ABERRANT T LYMPHOCYTE POPULATION-NO MONOTYPIC B LYMPHOCYTE POPULATION-SEE COMMENT Flow cytometric analysis of a left axillary lymph node biopsy does NOT demonstrate evidence of a neoplastic Bor T lymphocyte process. However, flow cytometry for evaluation of Hodgkin lymphoma or other B cell lymphoma with only rare large neoplastic cells is limited. Recommend morphologic correlation with biopsy([id number]).[id number] y.o. male presents for an ultrasound guided core biopsy of a left axillary lymph nodeLYMPH NODE, AXILLARY, LEFT, US GUIDED BIOPSYCD8, surface-kappa, CD56, surface-lambda, CD5, CD19, CD10, CD3, CD20, CD4, JW28Orkjkugy Viability: 88.7% Number of Events Acquired: 14395 The following populations are identified: Lymphocytes: Bright [...] analyzed represent nonviable cells, non-hematolymphoid cells, and debris.These tests were developed and their performance characteristics determined by [facility] They have not been cleared or approved by the U.S. Food and Drug Administration. The FDA has determined that such clearance or approval is not necessary. It should notbe regarded as investigational or for research. This laboratory is certified under the Clinical Laboratory Improvement Amendments of 1988 ("CLIA") as qualified to perform high-complexity clinical testing.MM, U/S, FNA, BREAST, [id number] 08:19:00Reason for Exam:->CT scan showed left axillary and pectoral LymphnodesAddendum BeginsMRN#: [id number]: 12/01/2018 Giovani Gilman M.D. Cytology results are now avai lable and demonstrate no evidence of malignant epithelial cellls. Addendum EndsMRN#: [id number] - MM, U/S, FNA, BREAST, LEFTULTRASOUND GUIDED FINE NEEDLE ASPIRATION LEFT BREAST: 11/25/2018PATIENTCONSENT: The procedure, risks, benefits and alternatives were [...] successful with no apparent post procedure complications. Giovani Gilman M.D. pth/:11/26/2018 08:44:00 Measurer Machine: Opal Duff Carpenter Helper Maintenance, [facility] 40845OF [id number] 09:46:00Medical Cytology Report Case: [id number] Authorizing Provider: Giovani Gilman MD Collected: 11/25/2018 1432 Ordering Location: [facility] [place] Received: 11/25/2018 1557 Pathologist: Jimbo Dow MD Specimen: Axilla, Left LEFT AXILLARY LYMPH NODE FNA BY CLINICIAN (CYTOSPINS): - NEGATIVE FOR EPITHELIAL MALIGNANCY - FAVOR REACTIVE LYMPHOID PROCESS (SEE COMMENT) Signing Pathologist Direct Phone Line: [phone] by Jimbo Dow MD on 11/28/2018 at 9:46 AMINTRADEPARTMENTAL CONSULTATION: - Dominick De La O MD has seen the case and agrees with the diagnosis. Please also see flow cytometry report [id number]. If there is a strong suspicion of a hematologic malignancy, appropriate evaluation is recommended. 89478Oojqzegngy of left axillary adenopathyLEFT AXILLARY LYMPH NODE FNA5 mls in cytorich red; 4 cytospinsCollected: [id number]: [id number] Francisco [facility], Department of [facility]ology, 92 [place] [address], [place] [address], [facility], [facility] of [facility]ology, [address] [place] [address], [facility], Department of [facility]ology, [address] [place] [address], XQGR CYTOMETRY REQUISITION 2018-11-26 19:33:00 Test Item Value Reference Range Interpretation Comments FLOW CYTOMETRY RESULT See Separate Report POINTER (CHAVA) (test code = 2758) FLOW CYTOMETRY AP CASE # [id number] (CHAVA) (test code = 2759) FLOW [id number] 15:31:00Flow Cytometry Report Case: [id number] Authorizing Provider: Giovani Gilman MD Collected: 11/25/2018 1432 Ordering Location: [facility] [place] Received: 11/25/2018 1810 Pathologist: Dominick De La O MD Specimen: [...] events for evaluation. Recommend correlation with cytology sample.[id number] y.o. male here for evaluation of leftaxillary adenopathyADENOPATHY, LEFT AXILLARY, FINE NEEDLE ASPIRATECD8, surface-kappa, CD56, surface-lambda, CD5, CD19, CD10, CD3, CD20, CD4, LZ87Hdhrpprj Viability: 95.7% Number of Events Acquired: 8950; [...] developed and their performance characteristics determined by [facility] They have not been cleared or approved by the U.S. Food and Drug Administration. The FDA has determined that such clearance or approval is not necessary. It should not be regarded as investigational or for research. This laboratory is certified under the Clinical Laboratory Improvement Amendments of 1988 ("CLIA") as qualified to perform high-complexity clinical testing.CT, CHEST, WITHOUT IV [id number] 08:46:00Addendum BeginsREPORT STATUS:A Addendum: Comparison study in the [facility] dated 07/22/2018. Nodules unchanged; however, given only three month interval, continued follow-up recommended. CT in nine months, July 2019, recommended. Signed: Jelena Dixon MDReport Verified Date/Time: 10/22/2018 08:46:44 Reading Location: [facility] Reading Room [address] [place], [place] [address]ddendum EndsFINAL REPORT EXAM: CT Chest WITHOUT contrast [...] adenopathy. Clinical/laboratory correlation recommended. Signed: Jelena Dixon MDReport Verified Date/Time: 10/20/2018 15:52:58 ReadingLocation: [facility] Reading Room [address] [place] [address] ANG, CV ACCESS, [id number] 14:38:00Reason for Exam:->G54.0 Thoracic Outlet Syndrome FINAL REPORT Ultrasound-guided left anterior scalene muscle block. History: Left neurogenic thoracic syndrome Modality: Ultrasound Sedation: None Produce Clerk: Taqueria Pulido MD. Commercial Attorney: None. Approach: Midbody of the left anterior [...] intramuscular left anterior scalene block. Signed: Taqueria Pulido MDRepcox branson Verified Date/Time: 09/29/2018 14:38:16 Reading Location: [facility] P048 Angio Body Reading Room TISSUE [id number] 18:40:00 Surgical Pathology Report Case: [id number] Authorizing Provider: Jose Antonio Turner Collected: 09/02/2018 0955 Ordering Location: [facility] PERI[facility] Received: 09/02/2018 1235 SERVICES Pathologist: Jimbo Dow MD Specimen: Hand, Right, Palmar Fascia SOFT TISSUE, RIGHT HAND, BIOPSY:- FIBROCONNECTIVE TISSUE WITHOUT SIGNIFICANT PATHOLOGIC ALTERATION Signing Pathologist Direct Phone Line: [phone] signed by Jimbo Dow MD on 09/08/2018 at 6:40 [id number] finger of right thumb, trigger finger of right index finger, trigger finger right middle finger, trigger finger left middle fingerA. Right hand palmar fasciaReceived in formalin labeled"hand, right", description "palmar fascia" is a 2.2 x 1.5 x 0.2 cm aggregate of day-white to yellow-gregory rubbery soft tissue. The specimen is entirely submitted in cassette A1. DB/plPerformed POCT-GLUCOSE [id number] 11:09:00 Test Item Value Reference Range Interpretation Comments POC-GLUCOSE METER 176 mg/dL 70-110 H TESTED AT [place] [address] ([facility] [employer]) (test code = [employer] [facility] 1538) [address] POCT-GLUCOSE [id number] 08:31:00 Test Item Value Reference Range Interpretation Comments POC-GLUCOSE METER 155 mg/dL 70-[address] [facility] 6720 ([facility] [place]) (test code = [employer] [facility] 5827) [address] HEPARIN ASSAY - [id number] 12:44:00 Test Item Value Reference Range Interpretation Comments UNFRACTIONATED HEPARIN-ANTI 10A < u/ml 0.30-0.70 L (BEAKER) (test code = 1606) Recommendations for Monitoring Unfractionated Heparin Therapeutic Range: 0.3- 0.7 u/mL with continuous IV [id number] 11:54:00 Test Item Value Reference Range Interpretation Comments SODIUM (BEAKER) (test code = 381) 138 meq/L 136-145 POTASSIUM (BEAKER) (test code = 4.0 meq/L 3.5-5.1 379) CHLORIDE (BEAKER) (test code = 382) 102 meq/L 98-107 CO2 (BEAKER) (test code = 355) 27 meq/L 22-29 [id number] 11:54:00 Test Item Value Reference Range Interpretation Comments GLUCOSE RANDOM (BEAKER) (test code 120 mg/dL 70-105 H = 652) BUN AND [id number] 11:54:00 Test Item Value Reference Range Interpretation Comments BLOOD UREA NITROGEN 30 mg/dL 7-21 H (BEAKER) (test code = 354) CREATININE (BEAKER) 1.00 mg/dL 0.57-1.25 (test code = 358) EGFR (BEAKER) (test 75 mL/min/1.73 ESTIMA PO GFR IS code = 1092) sq m NOT ACCURATE CREATININE CLEARANCE IN PREDICTING GLOMERULAR FILTRATION RATE . ESTIMATED GFR I S NOT APPLICABLE FOR DIALYSIS PATIEN TS. [id number] 11:48:00 Test Item Value Reference Range Interpretation Comments PROTIME (BEAKER) (test code = 13.3 seconds 11.7-14.7 759) INR (BEAKER) (test code = 370) 1.0 <=5.9 PARTIAL THROMBOPLASTIN TIME 29.5 seconds 22.5-36.0 (BEAKER) (test code = 760) RECOMMENDED COUMADIN/WARFARIN INR THERAPY RANGESSTANDARD DOSE: 2.0 - 3.0 Includes: PROPHYLAXIS forvenous thrombosis, systemic embolization; TREATMENT for venous thrombosis and/or pulmonary embolus.HIGH RISK: Target INR is 2.5-3.5 for patients with mechanical heart valves.[id number] 11:34:00 Test Item Value Reference Range Interpretation Comments HEMOGLOBIN (CHAVA) (test code = 14.4 GM/DL 13.7-17.5 410) PLATELET [id number] 11:34:00 Test Item Value Reference Range Interpretation Comments PLATELET COUNT (CHAVA) (test 199 K/CU MM 150-450 code = 756) PET, CARDIAC PERFUSION MULTIPLE STUDIES, REST AND [id number] 15:00:00 Reason for Exam:->dyspneaFINAL REPORT PROCEDURE: Rest/Stress MYOCARDIAL PERFUSION PET with regadenoson\\XA9\\ CPT CODE: 42982 INDICATION: Dyspnea HISTORY: Cardiac risk factors: Stroke. Other cardiovascular history: No reported CAD. Recent cardiac symptoms: Dyspnea, chest pain. Current cardiovascular-related medications: Crestor, lisinopril. PROTOCOL: Limited low-dose CT imaging was performed for attenuation correction. 40.0 mCi of Rb-82 chloride was injected iv at rest, and gated PET(positron emission tomography) images were obtained. Subsequently, 40.1 mCi of Rb-82 chloride was injected iv at expected peak pharmacologic effect, and gated PET images were obtained. PRELIMINARY STRESS TEST DATA FROM NONINVASIVE CARDIOLOGY: Pharmacologic stress was by 10-second iv infusion of 0.4 mg of regadenoson. Radiotracer was injected 30 seconds after start of stress. Heart rate was 52 frederick ts/min at rest and 68 beats/min (45% of [...] Normal extracardiac tracer distribution. 6. No previous [facility] study for comparison. NONINVASIVE RISK STRATIFICATION: The above findings are considered low risk (<1% annual mortality rate) based on the following criterion:- Normal or small myocardial perfusion defect at rest or with stress(JACC. 2012;59(9):857-81.) Signed: Marlene Raymond Verified Date/Time: 07/04/2018 15:00:54 Reading Location: [address] Reading Room POCT-GLUCOSE [id number] 19:08:00 Test Item Value Reference Range Interpretation Comments POC-GLUCOSE METER 127 mg/dL 70-[address] [facility] 6720 (BEAKER) (test code = MIRTHA Mchugh [facility] 1538) [address] POCT-GLUCOSE [id number] 16:19:00 Test Item Value Reference Range Interpretation Comments POC-GLUCOSE METER 112 mg/dL 70-[address] [facility] 67 (BEAKER) (test code = MIRTHA Mchugh [facility] 1538) [address] BASIC METABOLIC [id number] 14:22:00 Test Item Value Reference Range Interpretation Comments SODIUM (BEAKER) 136 meq/L 136-145 (test code = 381) POTASSIUM (BEAKER) 4.1 meq/L 3.5-5.1 (test code = 379) CHLORIDE (BEAKER) 106 meq/L 98-107 (test code = 382) CO2 (BEAKER) (test 22 meq/L 22-29 code = 355) BLOOD UREA NITROGEN 21 mg/dL 7-21 (BEAKER) (test code = 354) CREATININE (BEAKER) 0.87 mg/dL 0.57-1.25 (test code = 358) GLUCOSE RANDOM 152 mg/dL 70-105 H (BEAKER) (test code = 652) CALCIUM (BEAKER) 9.7 mg/dL 8.4-10.2 (test code = 697) EGFR (BEAKER) (test 88 mL/min/1.73 ESTIMA PO GFR IS code = 1092) sq m NOT ACCURATE CREATININE CLEARANCE IN PREDICTING GLOMERULAR FILTRATION RATE . ESTIMATED GFR I S NOT APPLICABLE FOR DIALYSIS PATIEN TS. [id number] 14:16:00 Test Item Value Reference Range Interpretation Comments PROTIME (BEAKER) (test code = 14.9 seconds 11.7-14.7 H 759) INR (BEAKER) (test code = 370) 1.2 <=5.9 PARTIAL THROMBOPLASTIN TIME 30.7 seconds 22.5-36.0 (BEAKER) (test code = 760) RECOMMENDED COUMADIN/WARFARIN INR THERAPY RANGESSTANDARD DOSE: 2.0 - 3.0 Includes: PROPHYLAXIS forvenous thrombosis, systemic embolization; TREATMENT for venous thrombosis and/or pulmonary embolus.HIGH RISK: Target INR is 2.5-3.5 for patients with mechanical heart valves.CBC (HEMOGRAM ONLY)2018-06-18 14:03:00 Test Item Value Reference Range Interpretation Comments WHITE BLOOD CELL COUNT (BEAKER) 5.7 K/ L 3.5-10.5 (test code = 775) RED BLOOD CELL COUNT (BEAKER) 4.83 M/ L 4.63-6.08 (test code = 761) HEMOGLOBIN (BEAKER) (test code = 13.9 GM/DL 13.7-17.5 410) HEMATOCRIT (BEAKER) (test code = 42.1 % 40.1-51.0 411) MEAN CORPUSCULAR VOLUME (BEAKER) 87.2 fL 79.0-92.2 (test code = 753) MEAN CORPUSCULAR HEMOGLOBIN 28.8 pg 25.7-32.2 (BEAKER) (test code = 751) MEAN CORPUSCULAR HEMOGLOBIN CONC 33.0 GM/DL 32.3-36.5 (BEAKER) (test code = 752) RED CELL DISTRIBUTION WIDTH 13.0 % 11.6-14.4 (BEAKER) (test code = 412) PLATELET COUNT (BEAKER) (test 181 K/CU MM 150-450 code = 756) MEAN PLATELET VOLUME (BEAKER) 9.0 fL 9.4-12.4 L (test code = 754) NUCLEATED RED BLOOD CELLS 0 /100 WBC 0-0 (BEAKER) (test code = 413) URINE AND [id number] 00:10:002[facility] [id number] 00:10:002[facility] [id number] 00:10:00 Test Item Value Reference Range Interpretation Comments UA pH (test code = UA pH) 6.0 1 5.0-8.0 [facility] [id number] 00:10:00Negative (12/25/17 6:10 PM) [facility] [id number] 00:10:001[facility] [id number] 00:10:00Negative (12/25/17 6:10 PM)[facility] [id number] 00:10:00Negative *NA*(12/25/17 6:10 PM)[facility] [id number] 00:10:00 Test Item Value Reference Range Interpretation Comments UA Spec Grav (test code = UA Spec 1.032 1 Grav) [facility] [id number] 00:10:00Clear (12/25/17 6:10 PM) [facility] [id number] 00:10:00Yellow *NA*(12/25/17 6:10 PM) [facility] [id number] 00:10:00Negative (12/25/17 6:10 PM) [facility] [id number] 21:12:70205Plpeebua HermannCHEM PANEL 2017-12-25 21:12:12299Psaseumk HermannCHEM [id number] 21:12:0024[facility]annCHE[facility] [id number] 21:12:83192Esvqvylc HermannCHEM [id number] 21:12:004.0[facility] [id number] 21:12:000.92[facility]annCHE[facility] [id number] 21:12:0038[facility]ann[facility] [id number] 21:12:0054 [facility] [id number] 21:12:003.5[facility]annCHE[facility] PANEL 2017-12-25 21:12:007.4[facility] [id number] 21:12:008.8[facility]annCHE[facility] [id number] 21:12:00 Test Item Value Reference Range Interpretation Comments A/G Ratio (test code = A/G Ratio) 0.9 1 0.7-1.6 [facility] [id number] 21:12:003.9[facility]CHE[facility] PANEL 2017-12-25 21:12:0011.0[facility] [id number] 21:12:00 Test Item Value Reference Range Interpretation Comments B/C Ratio (test code = B/C Ratio) 24 1 6-25 [facility] PmpuiljHJCVCQQTQP0014-03-19 21:12:000.1[facility]annHEMATOLOGY 2017-12-25 21:12:000.3[facility] SqqksuhQPDAUFIGBI7596-77-11 21:12:002.3[facility] NlndhgmNCCSGOFGLC4465-89-13 21:12:000.9[facility] WtopdcqUCYZOKMLYK9408-59-58 21:12:006.1[facility] NkcewoeOKQOYTPYOG0078-55-53 21:12:003.0[facility] IMQTHQFKGA8701-72-95 21:12:000.9[facility] MvhuomeIUOZXBILDF7031-82-92 21:12:00 24.3[facility] VsinnpvWVTJTMETTW7907-21-89 21:12:009.2[facility]annHEMATOLOGY 2017-12-25 21:12:0062.6[facility] SrvbhxeXYNMOYNPHZ4216-56-17 21:12:00 Test Item Value Reference Range Interpretation Comments INR (test code = INR) 1.95 1 0.85-1.17 [facility] [id number] 21:12:00 Test Item Value Reference Range Interpretation Comments PT (test code = PT) 22.4 s 12.0-14.7 [facility] [id number] 21:12:0013.7[facility]OLOGY 2017-12-25 21:12:0033.6[facility] OssxrxbFXKQKSNTJL2325-45-84 21:12:006.9[facility] VwbdaxaXPZXBMTUMZ0523-88-84 21:12:42530Dvkimfvi TssuiurZOBIROMSVH8338-52-99 21:12:0013.3[facility] LxvmavhNBFHJTKCUZ5495-07-62 21:12:0039.7[facility] PDPTMZTKEO3717-16-72 21:12:00 Test Item Value Reference Range Interpretation Comments MCH (test code = MCH) 29.1 pg 27.0-31.0 [facility] DhyoglgANLMKSVLVG3609-30-30 21:12:0086.5[facility]annHEMATOLOGY 2017-12-25 21:12:004.59[facility] IeryghxSIDBGXQRQK7248-59-03 21:12:009.7[facility] CxsedtyALKNSHPANH3796-10-68 21:12:00 Test Item Value Reference Range Interpretation Comments PTT (test code = PTT) 51.1 s 22.9-35.8 [facility] HermannCHEM [id number] 21:12:000.4[facility]annCHEM PANEL 2017-12-25 21:12:23556Qjgixmpi HermannCHEM JSFHH7504-96-26 21:12:0088[facility]annCHEM [id number] 21:12:0022[facility] HermannTISSUE [id number] 10:43:00Surgical Pathology Report Case: [id number] Authorizing Provider: Jose Antonio Turner Collected: 03/19/2017 1124 Ordering Location: [facility] Received: 03/19/2017 1407 SERVICES Pathologist: Zach Campos MD Specimen: Hand, Left, jameson fascia PART A LEFT HAND PALMAR FASCIA:FIBROCONNECTIVE TISSUE, NO SIGNIFICANT HISTOPATHOLOGIC ABNORMALITIES. [address]Jnhouko ring finger left handLeft handpalmer fasciaThe specimen is received in a formalin-filled container and labeled with the patient's information and labeled "left hand palmar fascia" and consists of multiple fragments of yellow-white soft tissue measuring 1.6 x 1 x 0.4 cm in aggregate. Submitted entirely A1. CG/plPOCT-GLUCOSE [id number] 10:48:00 Test Item Value Reference Range Interpretation Comments POC-GLUCOSE METER 147 mg/dL 70-[address] [facility] 6720 (CHAVA) (test code = SHERRYMAREK DIAZ 1538) [address] [id number] 17:03:00 Test Item Value Reference Range Interpretation Comments SODIUM (BEAKER) (test code = 381) 136 meq/L 136-145 POTASSIUM (BEAKER) (test code = 4.3 meq/L 3.5-5.1 379) CHLORIDE (BEAKER) (test code = 382) 106 meq/L 98-107 CO2 (BEAKER) (test code = 355) 20 meq/L 22-29 L [id number] 17:03:00 Test Item Value Reference Range Interpretation Comments GLUCOSE RANDOM (BEAKER) (test code 107 mg/dL 70-105 H = 652) Effective 09/21/2014: Reference Range Change-Adult onlyNew: 70-105 Previous: 70-110BUN AND [id number] 17:03:00 Test Item Value Reference Range Interpretation Comments BLOOD UREA NITROGEN 25 mg/dL 7-21 H (BEAKER) (test code = 354) CREATININE (BEAKER) 1.07 mg/dL 0.57-1.25 (test code = 358) EGFR (BEAKER) (test 70 mL/min/1.73 ESTIMA PO GFR IS code = 1092) sq m NOT ACCURATE CREATININE CLEARANCE IN PREDICTING GLOMERULAR FILTRATION RATE . ESTIMATED GFR I S NOT APPLICABLE FOR DIALYSIS PATIEN TS. [id number] 16:38:00 Test Item Value Reference Range Interpretation Comments HEMOGLOBIN (BEAKER) (test code = 14.3 GM/DL 13.0-16.8 410)
[2021-06-23 11:26] LABS: Urine Blood Negative (Negative); Urine Glucose Negative (Negative); Urine Protein Negative (Negative); Urine pH 5.5 (5.0-7.0)
--- NOTE | 2021-06-23 11:26 | RAD REPORT ---
EXAM DESCRIPTION: US - Scrotum Testicles - 06/23/2021 10:46 am CLINICAL HISTORY: PAIN COMPARISON: No comparisons FINDINGS: Doppler evaluation shows normal blood flow within the bilateral testicular tissue. No susp icious mass of the testicular us tissue seen. There is a 2-3 centimeter cystic area within the right testicle near the rede testis not regarded as significant. Minimal bilateral hydrocele present. Moderate-sized right varicocele is present. Epididymal tissue is prominent but not hyperemic. A 5 x 3 millimeter left epididymal cyst is present also felt to be incidental. An isolated right-sided varicocele has been described with elevated possibility of abdominal or pelvi c malignant process. Correlation is needed to determine if the patient has any other history or findi ngs raise suspicion. IMPRESSION: No torsion or suspicious testicular finding. Moderate-sized right varicocele.
[2021-06-23 12:01] LABS: Absolute Lymphocytes (CBC) 1.9 K/uL (0.7-4.9); Basophils % 1.1 % (0-1.3); Hematocrit 39.1 % (39.6-49.0); MPV 6.7 fL (7.6-11.3)
[2021-06-23] MEDS ORDERED: NA CHLORIDE 0.9% 1,000 ML ONE (12:02)
[2021-06-23 12:15] LABS: BUN Blood Urea Nitrogen 23 mg/dL (7-18); Bicarbonate 26 mmol/L (21-32); Glucose Level 184 mg/dL (74-106); Sodium Level 137 mmol/L (136-145)
[2021-06-23 12:19] LABS: Urine Bacteria NONE SEEN /HPF (NONE SEEN); Urine RBC <5 /HPF (NONE SEEN)
--- NOTE | 2021-06-23 12:35 | RAD REPORT ---
EXAM DESCRIPTION: CT - Abdomen Pelvis W Contrast - 06/23/2021 12:14 pm CLINICAL HISTORY: ABD PAIN COMPARISON: Scrotum Testicles dated 06/23/2021 TECHNIQUE: Biphasic, helical CT imaging of the abdomen and pelvis was performed following 100 ml non -ionic IV contrast. No oral contrast administered. All CT scans are performed using dose optimization technique as appropriate and may include automated exposure control or mA/KV adjustment according to patient size. FINDINGS: No suspicious findings in the lung bases. The liver, spleen, and pancreas show no suspicious findings. Gallbladder and biliary tree are also wi thout suspicious finding. Symmetric renal function is seen with no hydronephrosis or suspicious renal mass. No pyelonephritis o r acute parenchymal process. Mostly contracted urinary bladder shows no bladder calculus. Contracted state accentuates bladder wall thickness. No adrenal abnormalities. Prostate gland is enlarged projec ting into the bladder base. Prostate gland and bladder base assessment are limited due to the spray a rtifact from the left hip prosthesis. Small bilateral hydroceles are present matching the ultrasound finding. Right-sided varicocele is pre sent. There is a mild congested or edematous appearance to the fatty tissues within the right inguina l canal. There is an increased volume of fat in the right inguinal canal relative to the left. No abn ormal inguinal lymphadenopathy. No dilated bowel loops or bowel wall thickening. No free air, free fluid or inflammatory stranding. No mass or bulky lymphadenopathy. No suspicious bony findings. Degenerative and postsurgical changes are present in the lower lumbar s pine. IMPRESSION: Right-sided varicocele is present with congested or edematous fat along the right inguin al canal. Fat volume within the inguinal canal is increased relative to the left. Right inguinal hernia is suspected though the hernia defect at the origin of each inguinal canal is d ifficult to define. [place] artifact from the left hip prosthesis limits detail. Enlarged prostate gland. No evidence for occult malignancy or other suspicious finding as a source for the unilateral right-si ded varicocele.
--- NOTE | 2021-06-23 12:42 | ER ---
Nurse's Notes [facility] Name: Cral Fournier Age: 66 yrs Sex: Male : 1955 Arrival Date: 06/23/2021 Time: 10:16 Bed 24 [facility] MD: MANNIE ESTRADA Diagnosis: Right-sided varicocele Presentation: 06/23 10:52 Chief complaint: Patient states: swollen testicles. Coronavirus screen: Client denies da3 travel out of the [place] in the last 14 days. Ebola Screen: No symptoms or risks identified at this time. Risk Assessment: Do you want to hurt yourself or someone else? Patient reports no desire to harm self or others. 10:52 Method Of Arrival: Ambulatory da3 10:52 Acuity: TEDDY 3 da3 Triage Assessment: 10:56 General: Appears in no apparent distress. comfortable, Behavior is calm, cooperative. da3 Historical: - Allergies: 10:55 No Known Allergies; da3 - Home Meds: 12:32 Insulin: Novolog Sub-Q per pump [Active]; Effexor XR 150 mg Oral cp24 1 cap once daily dw for anxiety with depression [Active]; Crestor 10 mg oral tab once daily [Active]; Xarelto 20 mg oral tab 1 tab once daily [Active]; 12:36 dutasteride-tamsulosin 0.5-0.4 mg oral CM24 1 cap once daily [Active]; dw 12:38 metformin 500 mg Oral tr24 2 tabs once daily [Active]; dw - PMHx: 12:26 Diabetes mellitus; Hypercholesterolemia; vg1 12:39 Deep vein thrombosis; dw - Immunization history:: Client reports receiving the 2nd dose of the Covid vaccine. - Social history:: Smoking status: Patient denies any tobacco usage or history of. Screenin:31 Abuse screen: Denies threats or abuse. Nutritional screening: No deficits noted. vg1 Tuberculosis screening: No symptoms or risk factors identified. Fall Risk No fall in past 12 months (0 pts). No secondary diagnosis (0 pts). IV access (20 points). Ambulatory Aid- None/Bed Rest/Nurse Assist (0 pts). Gait- Normal/Bed Rest/Wheelchair (0 pts) Mental Status- Oriented to own ability (0 pts). Total Desir Fall Scale indicates No Risk (0-24 pts). Assessment: 11:27 General: Appears in no apparent distress. comfortable, Behavior is calm, cooperative. vg1 Pain: Complains of pain in Right testicle and Right side of groin Pain currently is 4 out of 10 on a pain scale. Pain began for about a week. Neuro: Level of Consciousness is awake, alert, obeys commands, Oriented to person, place, time, situation. Cardiovascular: Patient's skin is warm and dry. Respiratory: Airway is patent Respiratory effort is even, unlabored. GI: Abdomen is flat, non-distended, Patient currently denies nausea, vomiting. : Swelling noted on scrotum Right Denies burning with urination, pain urgency. EENT: No signs and/or symptoms were reported regarding the EENT system. Derm: Skin is intact, is healthy with good turgor. Musculoskeletal: Circulation, motion, and sensation intact. 13:00 Reassessment: Patient appears in no apparent distress at this time. Patient and/or vg1 family updated on plan of care and expected duration. Pain level reassessed. Patient is alert, oriented x 3, equal unlabored respirations, skin warm/dry/pink. Vital Signs: 10:53 BP 115 / 69; Pulse 83; Resp 18; Temp 97; Pulse Ox 96% on R/A; da3 12:25 BP 126 / 82; Pulse 60; Resp 16; Pulse Ox 96% ; vg1 ED Course: 10:16 Patient arrived in ED. am2 10:16 MANNIE ESTRADA is Private Physician. am2 10:46 Scrotum Testicles In Process Unspecified. EDMS 10:53 Triage completed. da3 10:54 Noemi Toussaint FNP-C is PHCP. kb 10:54 Gomez Leung MD is Attending Physician. kb 11:27 Ruth Paez, AYLIN is Primary Nurse. vg1 11:31 Arm band placed on. vg1 11:31 Patient has correct armband on for positive identification. Bed in low position. Call 1 light in reach. Side rails up X 1. 11:45 Initial lab(s) drawn, by me, sent to lab. Inserted saline lock: 20 gauge in right vg1 forearm, using aseptic technique. Blood collected. 12:14 CT Abd/Pelvis - IV Contrast Only In Process Unspecified. EDMS 13:00 No provider procedures requiring assistance completed. IV discontinued, intact, vg1 bleeding controlled, No redness/swelling at site. Pressure dressing applied. Administered Medications: 12:21 Drug: NS 0.9% 1000 ml Route: IV; Rate: 1000 ml; Site: right forearm; vg1 13:01 Follow up: IV Status: Completed infusion; IV Intake: 800ml vg1 12:54 Drug: Ketorolac 30 mg Route: IVP; Site: right forearm; vg1 13:01 Follow up: Response: Medication administered at discharge. vg1 Point of Care Testing: Blood Glucose: 12:24 Blood Glucose: 147 mg/dL; vg1 Ranges: Intake: 13:01 IV: 800ml; Total: 800ml. vg1 Outcome: 12:42 Discharge ordered by . felipe 13:00 Discharged to home ambulatory. vg1 13:00 Condition: stable 13:00 Discharge instructions given to patient, Instructed on discharge instructions, follow up and referral plans. Demonstrated understanding of instructions, follow-up care. 13:01 Patient left the ED. vg1 Signatures: Dispatcher [employer] EDNoemi Aggarwal, SKIN SPECIALIST-C SKIN SPECIALIST-CkNi Barclay, RN RN dw Negar De Anda Victoria, RN RN vg1 Ronnie Delgadillo, RN RN da3
--- NOTE | 2021-06-23 12:42 | EDPHYS ---
Physician Documentation [facility] Name: Carl Fournier Age: 66 yrs Sex: Male : 1955 Arrival Date: 06/23/2021 Time: 10:16 Bed 24 Private MD: MANNIE ESTRADA ED Physician Gomez Leung HPI: 06/23 16:43 This 66 yrs old Male presents to ER via Ambulatory with complaints of kb Testicular Swelling, Testicular Pain. 16:43 The patient presents with scrotal pain, of the right side. Onset: The symptoms/episode kb began/occurred yesterday. Modifying factors: The symptoms are alleviated by nothing, the symptoms are aggravated by movement, pressure. Associated signs and symptoms: The patient has no apparent associated signs or symptoms. Severity of symptoms: At their worst the symptoms were moderate, in the emergency department the symptoms are unchanged. The patient has not experienced similar symptoms in the past. The patient has not recently seen a physician. Historical: - Allergies: 10:55 No Known Allergies; da3 - Home Meds: 12:32 Insulin: Novolog Sub-Q per pump [Active]; Effexor XR 150 mg Oral cp24 1 cap once daily dw for anxiety with depression [Active]; Crestor 10 mg oral tab once daily [Active]; Xarelto 20 mg oral tab 1 tab once daily [Active]; 12:36 dutasteride-tamsulosin 0.5-0.4 mg oral CM24 1 cap once daily [Active]; dw 12:38 metformin 500 mg Oral tr24 2 tabs once daily [Active]; dw - PMHx: 12:26 Diabetes mellitus; Hypercholesterolemia; vg1 12:39 Deep vein thrombosis; dw - Immunization history:: Client reports receiving the 2nd dose of the Covid vaccine. - Social history:: Smoking status: Patient denies any tobacco usage or history of. ROS: 16:42 Constitutional: Negative for fever, chills, and weight loss. kb 16:42 : Positive for testicular pain of the right testicle. 16:42 All other systems are negative. Exam: 16:41 Constitutional: This is a well developed, well nourished patient who is awake, alert, kb and in no acute distress. Head/Face: Normocephalic, atraumatic. ENT: Moist Mucous membranes Cardiovascular: Regular rate and rhythm with a normal S1 and S2. No gallops, murmurs, or rubs. No pulse deficits. Respiratory: Respirations even and unlabored. No increased work of breathing, no retractions or nasal flaring. Abdomen/GI: Soft, non-tender. No distention Skin: Warm, dry with normal turgor. Normal color. MS/ Extremity: Pulses equal, no cyanosis. Neurovascular intact. Full, normal range of motion. Neuro: Awake and alert, GCS 15, oriented to person, place, time, and situation. Moves all extremities. Normal gait. Psych: Awake, alert, with orientation to person, place and time. Behavior, mood, and affect are within normal limits. 16:41 : Male external genitalia: tenderness, of the right testicle is noted, that is moderate. Vital Signs: 10:53 BP 115 / 69; Pulse 83; Resp 18; Temp 97; Pulse Ox 96% on R/A; da3 12:25 BP 126 / 82; Pulse 60; Resp 16; Pulse Ox 96% ; vg1 MDM: 10:54 Patient medically screened. kb 12:39 Data reviewed: vital signs, nurses notes. Data interpreted: Pulse oximetry: on room air kb is 96 %. Interpretation: normal. Counseling: I had a detailed discussion with the patient and/or guardian regarding: the historical points, exam findings, and any diagnostic results supporting the discharge/admit diagnosis, lab results, radiology results, the need for outpatient follow up, a urologist, to return to the emergency department if symptoms worsen or persist or if there are any questions or concerns that arise at home. 06/23 11:23 Order name: CBC with Diff; Complete Time: 12:09 kb 06/23 11:23 Order name: Basic Metabolic Panel; Complete Time: 12:17 kb 06/23 11:23 Order name: Urine Microscopic Only; Complete Time: 12:19 kb 06/23 11:26 Order name: Urine Dipstick-Ancillary; Complete Time: 11:33 EDMS 06/23 12:20 Order name: CREATININE WHOLE BLOOD; Complete Time: 12:31 EDMS 06/23 12:36 Order name: Glucose, Ancillary Testing; Complete Time: 12:38 EDMS 06/23 10:18 Order name: US Scrotum Testicles; Complete Time: 11:33 kb 06/23 11:23 Order name: Urine Dipstick-Ancillary (obtain specimen); Complete Time: 11:34 kb 06/23 11:23 Order name: CT Abd/Pelvis - IV Contrast Only; Complete Time: 12:38 kb Administered Medications: 12:21 Drug: NS 0.9% 1000 ml Route: IV; Rate: 1000 ml; Site: right forearm; vg1 13:01 Follow up: IV Status: Completed infusion; IV Intake: 800ml vg1 12:54 Drug: Ketorolac 30 mg Route: IVP; Site: right forearm; vg1 13:01 Follow up: Response: Medication administered at discharge. vg1 Point of Care Testing: Blood Glucose: 12:24 Blood Glucose: 147 mg/dL; vg1 Ranges: Critical Glucose Levels:Adult <50 mg/dl or >400 mg/dl <40 mg/dl or >180 mg/dl Disposition: 14:47 Co-signature as Attending Physician, Gomez Leung MD I agree with the assessment and kdr plan of care. Disposition Summary: 06/23/21 12:42 Discharge Ordered Location: Home kb Condition: Stable kb Diagnosis - Right-sided varicocele kb Followup: kb - With: Emergency Department - When: As needed - Reason: Worsening of condition Followup: kb - With: Private Physician - When: 2 - 3 days - Reason: Recheck today's complaints, Continuance of care, Re-evaluation by your physician Discharge Instructions: - Discharge Summary Sheet kb - Varicocele kb Forms: - Medication Reconciliation Form kb - Thank You Letter kb - Antibiotic Education kb - Prescription Opioid Use kb Signatures: Dispatcher [employer] Noemi Chandler, RADHA-Aguila SANTOSP-Ni Guerra, RN Gomez Christopher MD MD kdr Garcia, Victoria, RN RN vg1 Ronnie Delgadillo, RN RN da3
[2021-06-23] MEDS ORDERED: KETOROLAC 30 MG/ML INJ ONE (13:12)
[2021-06-23 13:13] VITALS: TEMP 97; O2SAT 96
[2021-06-23 13:15] VITALS: BP 126/82
== END 2021-06-23 13:01 | disposition home or self-care (01) ==
LOC: ER 10:15
DX: I86.1 Scrotal varices (principal); E11.9 Type 2 diabetes mellitus without complications; E78.00 Pure hypercholesterolemia, unspecified; Z79.01 Long term (current) use of anticoagulants; Z79.4 Long term (current) use of insulin
CPT/HCPCS: 96361; 85025; 80048; 36415; 82565; 82947; 74177; 76870; 96374; 99284; Q9967; J7030; 81003; 81015

== ENCOUNTER 2025-02-11 22:05 | Emergency (ER) | payer OTHER ==
[2025-02-11] MEDS ORDERED: HYDROMORPHONE HCL 1 MG/ML INJ ONE (22:54)
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
[2025-02-12 00:21] LABS: PT Prothrombin Time 20.1 SECONDS (10-13.0); Protime INR 1.81
[2025-02-12 01:50] VITALS: TEMP 98.4; O2SAT 98
[2025-02-12 01:51] VITALS: BP 131/64
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
== END 2025-02-12 01:00 | disposition home or self-care (01) ==
LOC: ER 22:05
DX: S82.091A Other fracture of right patella, initial encounter for closed fracture (principal); S76.111A Strain of right quadriceps muscle, fascia and tendon, initial encounter; E11.9 Type 2 diabetes mellitus without complications; Z79.4 Long term (current) use of insulin; Z96.41 Presence of insulin pump (external) (internal)
CPT/HCPCS: 36415; 85610; 73562; 96374; 99284; J1171